=== PATIENT | male | born 1945 | race Caucasian/White ===

== ENCOUNTER 2017-09-16 18:22 | Observation (INO) | payer MEDICARE ==
[2017-09-16] MEDS ORDERED: Nitroglycerin 0.4 MG TAB (25 Tab Bottle) PO PRN (19:32)
[2017-09-16] MEDS ORDERED: Acetaminophen 650 MG Suppository PR PRN (19:32)
[2017-09-16] MEDS ORDERED: Bisacodyl 5 MG TAB PO PRN (19:32)
[2017-09-16] MEDS ORDERED: Acetaminophen 325 MG TAB PO PRN (19:32)
[2017-09-16] MEDS ORDERED: hydrALAZINE 20 MG/ML VIAL SLOW IVP PRN (19:32)
[2017-09-16] MEDS ORDERED: Labetalol HCl 100 MG/20 ML VIAL SLOW IVP PRN (19:32)
[2017-09-16] MEDS ORDERED: Dextrose 50% Abboject 50 ML SYRINGE SLOW IVP PRN (19:41)
[2017-09-16] MEDS ORDERED: Dextrose 5% in Water 1,000 ML IV PRN (19:41)
--- NOTE | 2017-09-16 20:29 | HP ---
PRIMARY CARE PHYSICIAN: Dr. Brock Centeno. CHIEF COMPLAINT: Right-sided numbness. HISTORY OF PRESENT ILLNESS: Mr. Monte is a pleasant 72-year-old gentleman who was seen at [facility] on 09/16/2017. He was transferred here from the emergency room at [facility], where he initially presented. Around 1500 hours today, he was standing by his truck with his son. He felt everything spinning arou nd him, like he was on [id number]. At the same time, he felt right-sided weakness in both upper and lower extremities. He also reports feeling numb in both right upper and lower extremities. He s at down with assistance from his son and another person. He continued to feel right-sided weakness a nd dizziness. Therefore, he was driven to the emergency room at [facility]. He reports that the dizziness has resolved. He also reports that his right-sided weakness has resolv ed, although he continues to have right-sided numbness. He denies any slurring of speech. He denies any facial droop. He denies any nausea or vomiting. Mr. Monte also reports feeling retrosternal chest discomfort around the time he had the above-mentione d symptoms. It was dull, nonradiating, 4 or 5 out of 10, no known aggravating or relieving factors. It lasted a few minutes and resolved on its own. It was accompanied by dizziness. REVIEW OF SYSTEMS: The following complete review of systems was negative, unless otherwise mentioned in the HPI or below: Constitutional: Weight loss or gain, ability to conduct usual activities. Skin: Rash, itching. Eyes: Double vision, pain. ENT/Mouth: Nose bleeding, neck stiffness, pain, tenderness. Cardiovascular: Palpitations, dyspnea on exertion, orthopnea. Respiratory: Shortness of breath, wheezing, cough, hemoptysis, fever or night sweats. Gastrointestinal: Poor appetite, abdominal pain, heartburn, nausea, vomiting, constipation, or diarr hea. Genitourinary: Urgency, frequency, dysuria, nocturia. Musculoskeletal: Pain, swelling. Neurologic/Psychiatric: Anxiety, depression. Allergy/Immunologic: Skin rash, bleeding tendency. PAST MEDICAL HISTORY: Significant for cerebrovascular accident with no residual weakness, TIAs, diab etes mellitus type 2, and hypertension. 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 ALLERGIES: PENICILLIN. MEDICATIONS: These need to be clarified, but he appears to be on metformin and glyburide, metoprolol , lovastatin, and aspirin. SOCIAL HISTORY: Patient denies tobacco use. He reports occasional alcohol use. [facility]. FAMILY HISTORY: Significant for cerebrovascular accident in his mother. CODE STATUS: I discussed his code status. He is FULL CODE. Surrogate decision maker is his son. PHYSICAL EXAMINATION: GENERAL: Mr. Monte is awake and alert, not in acute distress. VITAL SIGNS: Blood pressure is 154/87, pulse is 74, his breathing at rate of 18, and saturating 96% on room air. He is afebrile. EYES: No scleral icterus. No conjunctival pallor. ENT: He is hard of hearing. No oropharyngeal erythema or exudates. NECK: Supple, nontender, normal range of movement. Trachea is midline. RESPIRATORY: Accessory muscles of breathing are not active. Chest wall movements are symmetric bila terally. LUNGS: Clear to auscultation without wheeze, rhonchi, or crepitations. CARDIOVASCULAR: S1 and S2 are heard, regular. LUNGS: Peripheral pulses palpable. No carotid bruit, no pericardial rub. ABDOMEN: Soft, nontender, bowel sounds are heard, no hepatomegaly, no splenomegaly. NEUROLOGIC: Cranial nerves II-XII are intact. He has diminished sensation to the right side of his face, right upper extremity and right lower extremity. There are no focal motor deficits. Deep tend on reflexes are 2+. MUSCULOSKELETAL: Missing toes on his left foot. LYMPHATIC: No cervical lymphadenopathy. SKIN: No rashes or subcutaneous nodules. PSYCHIATRIC: Normal mood, normal affect, patient is oriented to person, place, and time. LABORATORY DATA: Mr. Monte's labs and investigations were reviewed. I reviewed his electrocardiogram , which shows normal sinus rhythm, no ST changes to suggest an acute coronary syndrome. I reviewed noncontrast CT scan of the head, which does not show any pulmonary infiltrates. He has a white count of 10,700, hemoglobin 17, hematocrit 47, platelet count 246, troponin I 0.038, blood urea nitrogen 17.4, and creatinine 1.1. ASSESSMENT AND PLAN: Mr. Monte is a pleasant 72-year-old gentleman who was seen at [facility] on 09/16/2017. His problem list includes: 1. Right-sided weakness and numbness colon, weakness has resolved. He continues to have numbness. He will be admitted to the hospital for further workup, including MRI of the brain, carotid Dopplers, and 2D echocardiogram. He will be continued on aspirin. Neurology service will be consulted. 2. Chest pain. I note that he had a negative stress test in 09/2017. Given his symptoms today as w ell as indeterminate troponin I, we will repeat a troponin I and also request a stress test. 3. Diabetes mellitus. Start insulin sliding scale and Accu-Cheks. 4. Hypertension. Monitor vital signs, titrate antihypertensives as needed. I should note that a CT scan of the brain done at [facility] showed stable remote encephalomalacia of the right posterior parietal lobe. Many thanks for allowing me to participate in your patient's care. Please feel free to contact me wi th any questions or concerns. LEVEL OF RISK: High. LEVEL OF COMPLEXITY: High.
[2017-09-16 20:30] LABS: Troponin I 0.015 ng/mL (< 0.028)
--- NOTE | 2017-09-16 22:04 | ULT ---
BILATERAL CAROTID DUPLEX ULTRASOUND INCLUDING COLOR AND SPECTRAL DOPPLER IMAGIN09/16/17 HISTORY: Doctor's order indicates CVA. There is some visual plaque noted in both right and left CCAs and proximal ICAs. PSV right ICA 45 cm/s. EDV 33 cm/s. ICA/CCA ratio 0.6. PSV left ICA 83 cm/s. EDV 32 cm/s. ICA/CCA ratio 0.6. Vertebral flow is antegrade. IMPRESSION: No hemodynamically significant stenosis. Minimal atherosclerotic arteriovascular disease involving priscilla th right and left distal CCAs and proximal ICAs. Stable appearance when compared to 12/22/16. POS: [facility]
[2017-09-16] MEDS ORDERED: Ondansetron HCl/PF 4 MG/2 ML Vial IVP PRN (22:18)
[2017-09-16] MEDS ORDERED: Sodium Chloride 0.9% 1,000 ML IV SCH (22:18)
[2017-09-16] MEDS ORDERED: Ondansetron ODT 4 MG TAB SL PRN (22:18)
[2017-09-16 23:11] VITALS: BMI 33.7
[2017-09-17 00:10] LABS: CKMB 2.7 ng/mL (0-6.6); Troponin I 0.016 ng/mL (< 0.028)
[2017-09-17 05:38] LABS: #Eosinphils 0.2 thou/uL (0.0-0.7); #Monocytes 0.6 thou/uL (0.11-0.59); #Neutrophils 4.9 thou/uL (1.40-6.50); %Basophils 0.5 % (0.0-1.0); %Eosinophils 2.1 % (0.0-10.0); %Lymphocytes 25.6 % (21.0-51.0); %Monocytes 7.8 % (0.0-10.0); Hemoglobin 15.3 g/dL (14.0-18.0); Mean Corpuscular HGB CONC 34.3 g/dL (32.0-36.0); Mean Corpuscular Hemoglobin 31.7 pg (27.0-31.0); Mean Corpuscular Volume 92.2 fl (80.0-94.0); Mean Platelet Volume 7.5 fL (7.4-10.4); Platelet Count 213 thou/uL (130-400); RBC Distribution Width 12.2 % (11.5-14.5); Red Blood Cell (RBC) Count 4.83 mill/uL (4.70-6.10); White Blood Cell (WBC) Count 7.7 thou/uL (4.8-10.8)
[2017-09-17 05:49] LABS: Anion Gap 9 mmol/L (10-20); BUN (Urea Nitrogen) 13 mg/dL (8.4-25.7); Calc. Creatinine Clearance 111 mL/min (70-130); Calcium 8.6 mg/dL (7.8-10.44); Carbon Dioxide 28 mmol/L (23-31); Cardiac Risk 5.1 (Less than 4.5); Chloride 104 mmol/L (98-107); Cholesterol 157 mg/dl (< 200 Desired); Estimated GFR-MDRD 86; Glucose 252 mg/dL (80-115); HDL Cholesterol 31 mg/dL (>60 Neg Risk); LDL Cholesterol, Calculated 82 mg/dL; Sodium 137 mmol/L (136-145); Triglycerides 220 mg/dL (Less than 150)
[2017-09-17] MEDS: HumaLOG 300 UNITS/3 ML VIAL SC PRN ×3 (06:40→21:14)
[2017-09-17] MEDS ORDERED: Aspirin 325 mg Enteric Coated Tablet PO SCH (09:00)
[2017-09-17] MEDS ORDERED: Lorazepam 2 MG/ML VIAL SLOW IVP SCH ×2 (09:45→15:00)
--- NOTE | 2017-09-17 11:34 | CON ---
DATE OF CONSULTATION: 09/17/2017 NEUROLOGY CONSULTATION CONSULTING PHYSICIAN: Hospitalist. IMPRESSION: 1. Syncopal episode of uncertain etiology. 2. Diabetes. 3. Hypertension. 4. History of questionable stroke. PLAN: 1. MRI of the brain. 2. Echocardiogram. 3. Consider Cardiology evaluation. HISTORY OF PRESENT ILLNESS: Mr. Monte is a 72-year-old man with a past history of diabetes, hypertens ion, and questionable stroke 2 years ago. He was standing by his truck when he started to feel a bit woozy. He collapsed to the ground and was unconscious for around a minute or so. When he awoke, he did not have any chest pain, palpitations, shortness of breath, arm pain, lateralized numbness or ti ngling. He noted some questionable mild weakness in the right upper extremity, was taken into [facility] and had a CT of the brain done, nothing remarkable was found. He was transferred here f or evaluation. His carotid ultrasound was unremarkable. He has been a bit hypertensive and his gluc ose is elevated, but otherwise nothing remarkable has been found. He reports that his symptoms seem to be gone today. PAST MEDICAL HISTORY: As listed above. ALLERGIES: PENICILLIN. SOCIAL HISTORY: No tobacco, rare alcohol use. FAMILY HISTORY: Noncontributory. REVIEW OF SYSTEMS: No nausea, vomiting, vertigo, slurred speech, difficulty swallowing, double visio n, lateralized incoordination or difficulty walking. PHYSICAL EXAMINATION: VITAL SIGNS: Blood pressure 188/93, pulse 65, respirations 16, and temperature 98.1. HEENT: Pupils equal and reactive. Conjunctivae clear. Oropharynx clear. NECK: Supple, no lymphadenopathy noted. EXTREMITIES: No cyanosis, clubbing or edema. NEUROLOGIC: He is alert and appropriate. His speech is fluent and clear. Cranial nerves II-XII are intact. Motor exam showed symmetric strength. There was no fix or drift. Cerebellar testing showe d normal finger to nose and rapid alternating movements. He could stand and walk independently. Sen sation was intact to light touch. LABORATORY STUDIES: Reviewed. SUMMARY: This is a 72-year-old gentleman with hypertension, diabetes, and possible history of a stro ke who presents with a syncopal episode and some subjective mild right upper extremity weakness which has since resolved. Uncertain as to whether this would be consistent with a transient ischemic cleo ck given the loss of consciousness. Given his risk factors, I consider further cardiac workup.
--- NOTE | 2017-09-17 13:44 | NM ---
RADIONUCLIDE STRESS REST MYOCARDIAL PERFUSION SCAN WITH CT ATTENUATION CORRECTION AND SPECT IMAGING LEFT VENTRICULAR WALL MOTION AND EJECTION FRACTION: HISTORY: Chest pain. FINDINGS: Adenosine protocol was used. There is heterogeneous uptake of radiotracer throughout the left ventri cular myocardium with significant diaphragmatic attenuation. No focal perfusion defect or reversibil ity are evident. QGS analysis of gated SPECT images shows no focal wall motion abnormalities. Left ventricular ejection fraction is calculated at 54%. IMPRESSION: Normal myocardial perfusion scan. Normal left ventricular ejection fraction. POS: [facility]
[2017-09-17] MEDS: Enoxaparin Sodium 40 MG/0.4 ML SYRINGE SC SCH (14:01)
[2017-09-17] MEDS ORDERED: Lorazepam 2 MG/ML VIAL ONE (14:56)
--- NOTE | 2017-09-17 15:46 | MRI ---
MRI BRAIN WITHOUT CONTRAST: Date: 09/17/17 HISTORY: Stroke. FINDINGS: Comparison made with exam of 04/24/17. There are changes of cortical atrophy, chronic small vessel ischemic disease, and old infarction in t he right MCA territory. No restricted diffusion is seen. No hemorrhage, midline shift, or abnormal ex tra-axial fluid collections are noted. Ventricular size is stable and the basilar cisterns are patent . Old lacunar infarction in the right basal ganglia is again seen. IMPRESSION: No evidence of acute intracranial process. POS: [facility]
[2017-09-17] MEDS ORDERED: ADENOSINE 60 MG/20 ML VIAL ONE (17:05)
--- NOTE | 2017-09-17 17:44 | PDOC.PN ---
- Subjective Encounter Start Date: 09/17/17 Encounter Start Time: 17:40 Subjective: f/u after suspected TIA with R-sided numbness and vertiginous sx. -: BP labile per nursing. R-sided numbness resolved but still has some -: dizziness. - Objective MAR Reviewed: Yes Vital Signs & Weight: Vital Signs (12 hours) Temp Pulse Resp BP BP Pulse Ox 09/17/17 16:09 84 210/108 H 09/17/17 16:00 97.7 F 83 20 210/108 H 94 L 09/17/17 13:36 97.8 F 75 18 144/84 H 94 L 09/17/17 08:10 97.8 F 66 18 128/86 97 09/17/17 07:38 97.7 F 66 18 128/86 97 Weight Weight 222 lb 3.2 oz I&O: 09/16/17 09/17/17 09/18/17 06:59 06:59 06:59 Intake Total 1279 Balance 1279 Result Diagrams: 09/17/17 05:12 09/17/17 05:12 Additional Labs: Accuchecks 09/17/17 09/17/17 09/17/17 16:51 16:29 06:07 POC Glucose 267 H 290 H 239 H 09/17/17 00:50 POC Glucose 391 H Laboratory Tests 09/17/17 05:12 Triglycerides 220 H Cholesterol 157 LDL Cholesterol, Calc 82 HDL Cholesterol 31 Radiology Reviewed by me: Yes (MRI brain - no acute process) EKG Reviewed by me: Yes (Tele - SR) Phys Exam - Physical Examination Constitutional: NAD HEENT: PERRLA, oral pharynx no lesions Neck: no JVD, supple Respiratory: no wheezing, clear to auscultation bilateral Cardiovascular: RRR Gastrointestinal: soft, non-tender, no distention, positive bowel sounds Musculoskeletal: no edema, pulses present resting tremor in hands Neurological: normal sensation, moves all 4 limbs Psychiatric: A&O x 3 Skin: normal turgor, cap refill <2 seconds Dx/Plan (1) Vertigo Code(s): R42 - DIZZINESS AND GIDDINESS Status: Acute Comment: Likely due to labile BP, improved currently (2) Paresthesia and pain of both upper extremities Code(s): R20.2 - PARESTHESIA OF SKIN; M79.601 - PAIN IN RIGHT ARM; M79.602 - PAIN IN LEFT ARM Status: Acute Comment: Likely due to HTN encephalopathy, no acute CVA per MRI brain (3) Hypertensive encephalopathy Code(s): I67.4 - HYPERTENSIVE ENCEPHALOPATHY Status: Acute Comment: Resolving, monitor BP trend, resume home BP meds (4) Diabetes mellitus Code(s): E11.9 - TYPE 2 DIABETES MELLITUS WITHOUT COMPLICATIONS Status: Chronic Qualifiers: Diabetes mellitus type: type 2 Comment: Labile, resume Diabeta, Metformin and Actos (5) Hyperlipidemia Code(s): E78.5 - HYPERLIPIDEMIA, UNSPECIFIED Status: Chronic Comment: Start Lipitor 20mg HS - Plan PT/OT, bilingual social worker, out of bed/ambulate, DVT proph w/SCDs Stable overall -: Resume home Norvasc, Carvedilol and Lisinopril -: May need additional titration of antihypertensive regimen -: Start Lipitor 20mg HS -: Continue ASA 325mg daily * Likely home 09/18/17 if BP improved
[2017-09-17] MEDS ORDERED: Amlodipine 5 MG TAB PO SCH (18:45)
[2017-09-17] MEDS ORDERED: Carvedilol 6.25 MG TAB PO SCH (18:45)
[2017-09-17] MEDS ORDERED: Lisinopril 20 MG TAB PO SCH (18:45)
[2017-09-17] MEDS ORDERED: Atorvastatin Calcium 20 MG TAB PO SCH (21:00)
[2017-09-17] MEDS ORDERED: Tamsulosin HCl 0.4 MG CAP PO SCH (21:00)
[2017-09-18] MEDS: HumaLOG 300 UNITS/3 ML VIAL SC PRN ×2 (06:00→11:45)
[2017-09-18] MEDS ORDERED: glyBURIDE 5 MG TAB PO SCH (08:00)
[2017-09-18] MEDS ORDERED: metFORMIN 500 MG TAB PO SCH (08:00)
[2017-09-18] MEDS ORDERED: Carvedilol 25 MG TAB PO SCH (08:00)
[2017-09-18] MEDS ORDERED: EMPAGLIFLOZIN PO SCH (09:00)
[2017-09-18] MEDS ORDERED: LINAGLIPTIN PO SCH (09:00)
[2017-09-18] MEDS ORDERED: Aspirin 325 mg Enteric Coated Tablet PO SCH (09:00)
[2017-09-18] MEDS ORDERED: Pioglitazone HCl 15 MG TAB PO SCH (09:00)
[2017-09-18] MEDS ORDERED: Lisinopril 20 MG TAB PO SCH (09:00)
[2017-09-18] MEDS ORDERED: Amlodipine 5 MG TAB PO SCH (09:00)
[2017-09-18] MEDS: Enoxaparin Sodium 40 MG/0.4 ML SYRINGE SC SCH (09:41)
[2017-09-18 09:47] VITALS: BP 162/82; TEMP 98.4
--- NOTE | 2017-09-18 14:52 | DIS ---
DATE OF ADMISSION: 09/16/2017 DATE OF DISCHARGE: 09/18/2017 ADMITTING DIAGNOSIS: Transient ischemic attack. DISCHARGE DIAGNOSIS: Transient ischemic attack. SECONDARY DIAGNOSES: 1. Chest pain. 2. Type 2 diabetes mellitus. 3. Hypertension, uncontrolled. CONSULTANTS: Linen Folder involved in this care is Dr. Ross. INVESTIGATIONS DONE DURING THIS ADMISSION: 1. MRI of the brain showing no evidence of any acute stroke. 2. His nuclear stress test was negative for any evidence of cardiac ischemia. HISTORY OF PRESENT ILLNESS AND HOSPITAL COURSE: In brief, this is a 72-year-old morbidly obese white male with a known history of hypertension, uncontrolled, presented also with right-sided weakness in both upper and lower extremities. He felt dizzy while he was standing by his truck with his son and he felt everything spinning around him and also with right-sided weakness. He sat down with assista nce from his son and another person and continued to feel right-sided weakness and dizziness. So, he was driven to nearby ER at [place] and his right-sided weakness and dizziness have completely res olved. So, the patient was transferred to [facility] for further evaluation. The patient was als o complaining of retrosternal chest pain and discomfort around the time he had the symptoms. The hazel n was 4/5 intensity with no aggravating or relieving factors. So, nuclear stress test was ordered, w hich came out to be unremarkable and he was closely monitored. As he has poorly controlled blood pre ssures, he was started on p.r.n. hydralazine medications, but most of them were related to his anxiet y. His blood pressures calm down on the day of discharge. He had a negative MRI, which did not show any evidence of stroke. His symptoms were back to normal and the patient was able to walk with assi stance, which is baseline according to the son. The patient is discharged home in stable condition a fter Physical Therapy evaluation. PHYSICAL EXAMINATION: VITAL SIGNS: Blood pressures are 162/82, heart rate is 84, respiratory rate 18, saturation 98%. GENERAL: The patient is moderately built, moderately nourished, does not appear in acute distress. CARDIOVASCULAR: S1, S2 normal. No murmurs, rubs or gallops. LUNGS: Bilateral air entry was equal. No wheezing, no crackles. ABDOMEN: Soft, nontender. No guarding, no rebound tenderness. Bowel sounds normal. MACHINE ICER: Cranial nerve examination II through XII intact. No focal deficits were noted. DISCHARGE MEDICATIONS: 1. Amlodipine 5 mg p.o. daily. 2. Carvedilol 12.5 mg p.o. b.i.d. 3. Empagliflozin and linagliptin 1 tablet p.o. daily. 4. Glyburide 5 mg p.o. daily. 5. Lisinopril 20 mg daily. 6. Metformin 500 mg p.o. b.i.d. 7. Pioglitazone 15 mg p.o. daily. 8. Tamsulosin 0.4 mg p.o. daily. NEW MEDICATION: Atorvastatin 20 mg p.o. at bedtime. DISCHARGE INSTRUCTIONS: Continue activity as tolerated. Advised to follow up with primary care phys ician in 1 to 2 weeks. Advised to return to the ER if the patient develops further similar symptoms again and explained about the stroke to return to the ER within 3 hours after symptom onset. Advised to continue on the diabetic diet. I spent 35 minutes with this patient on the day of discharge.
--- NOTE | 2017-09-19 00:27 | EKG ---
Test Reason : Blood Pressure : / mmHG Vent. Rate : 067 BPM Atrial Rate : 067 BPM P-R Int : 144 ms QRS Dur : 094 ms QT Int : 430 ms P-R-T Axes : 000 -37 096 degrees QTc Int : 454 ms Normal sinus rhythm Left axis deviation Nonspecific ST and T wave abnormality Abnormal ECG Confirmed by LAXMI ARAUJO ([id number]), editor book JOE CRANE ([id number]) on 09/19/2017 12:25:36 AM Referred By: Confirmed By:LAXMI ARAUJO
--- NOTE | 2017-09-21 13:35 | STRESS ---
Acquisition Time: 2017-09-17 10:37:09 Total Exercise Time: 00:04:00 Test Indications: CHEST PAIN Medications: Protocol: ADENOSINE Max HR: 090 BPM 60% of Pred: 150 BPM Max BP: 150/070 mmHG Max Work Load: 1.0 METS RESTING ECG: NORMAL SINUS RHYTHM AT 66 BPM WITH NON-SPECIFIC ST SEGMENT AND T-WAVE CHANGES SYMPTOMS: NONE NORMAL BP RESPONSE ECTOPY: NONE ECG STRESS: NO SIGNIFICANT CHANGES INTERPRETATION: INDETERMINATE ECG/AWAIT NUCLEAR IMAGES FOR DEFINITIVE DIAGNOSIS Confirmed by JB SCHWAB ([id number]) on 09/21/2017 1:35:20 PM Referred By: MD Alvino PACHECO Confirmed By:JB SCHWAB
== END 2017-09-18 11:54 | disposition home or self-care (01) ==
LOC: ERS 18:22 → 2SE 21:18
PROVIDERS: ADMIT Internal Medicine; ATTEND Internal Medicine
DX: Z87.891 Personal history of nicotine dependence; R07.2 Precordial pain; Z68.33 Body mass index [BMI] 33.0-33.9, adult; I67.4 Hypertensive encephalopathy; E66.01 Morbid (severe) obesity due to excess calories; I10 Essential (primary) hypertension; Z79.82 Long term (current) use of aspirin; Z79.899 Other long term (current) drug therapy; Z88.0 Allergy status to penicillin; E11.9 Type 2 diabetes mellitus without complications; Z86.73 Personal history of transient ischemic attack (TIA), and cerebral infarction without residual deficits; Z79.84 Long term (current) use of oral hypoglycemic drugs; G45.9 Transient cerebral ischemic attack, unspecified; E78.5 Hyperlipidemia, unspecified
CPT/HCPCS: 70551; 78452; 80048; 80061; 82553 ×2; 82962 ×2; 84484 ×2; 85025; 93005; 93017; 93306; 93880; 94760 ×2; 96361; 96372 ×2; 96374; 96375; 96376; 99285; 99406; A9500; G0378; 36415; 36416; A4216; J0153; J1650; J2060

== ENCOUNTER 2017-11-21 19:07 | Inpatient (IN) | payer MEDICARE ==
[2017-11-21] MEDS ORDERED: Fentanyl 100 MCG/2 ML VIAL ONE (19:19)
[2017-11-21] MEDS ORDERED: Ketorolac Tromethamine 30 MG/ML VIAL ONE (19:43)
[2017-11-21] MEDS ORDERED: Acetaminophen 500 MG TAB ONE (19:48)
[2017-11-21 20:09] LABS: Hemoglobin 14.8 g/dL (14.0-18.0); Mean Corpuscular HGB CONC 34.7 g/dL (32.0-36.0); Mean Corpuscular Hemoglobin 31.7 pg (27.0-31.0); Mean Corpuscular Volume 91.3 fl (80.0-94.0); Mean Platelet Volume 6.8 fL (7.4-10.4); Platelet Count 264 thou/uL (130-400); RBC Distribution Width 11.7 % (11.5-14.5); Red Blood Cell (RBC) Count 4.66 mill/uL (4.70-6.10); White Blood Cell (WBC) Count 25.6 thou/uL (4.8-10.8)
[2017-11-21] MEDS ORDERED: Nicotine 21 MG PATCH TOP SCH (20:15)
[2017-11-21 20:24] LABS: Band 21 % (5-11); Lymphocytes 2 % (21-51); MDiff Complete? YES; Metamyelocyte 1 % (0-0); Monocytes 4 % (0-10); Neutrophil 72 % (42-75); PLT Morphology Comment Appears Adequate; RBC Morphology Normal
[2017-11-21 20:30] LABS: ALT (SGPT) 22 U/L (8-55); AST (SGOT) 19 U/L (5-34); Albumin 3.5 g/dL (3.4-4.8); Alkaline Phosphatase 126 U/L (40-150); Anion Gap 20 mmol/L (10-20); BUN (Urea Nitrogen) 12 mg/dL (8.4-25.7); Bilirubin, Total 0.3 mg/dL (0.2-1.2); CK (CPK) 272 U/L (30-200); Calc. Creatinine Clearance 0 mL/min (70-130); Calcium 8.5 mg/dL (7.8-10.44); Carbon Dioxide 14 mmol/L (23-31); Chloride 94 mmol/L (98-107); Estimated GFR-MDRD 62; Globulin 2.6 g/dL (2.4-3.5); Glucose 131 mg/dL (80-115); Lipase 7 U/L (8-78); Magnesium 1.6 mg/dL (1.6-2.6); Potassium 3.4 mmol/L (3.5-5.1); Protein, Total 6.1 g/dL (5.8-8.1); Sodium 125 mmol/L (136-145)
[2017-11-21] MEDS ORDERED: Piperacillin/Tazobactam 3.375 GM VIAL ONE (22:09)
[2017-11-21] MEDS ORDERED: Vancomycin HCl 1.5 GM in Sodium Chloride 0.9% 250 ML 300 ML IVPB SCH (22:15)
--- NOTE | 2017-11-21 22:18 | RAD ---
CHEST ONE VIEW: History: Fever. Comparison: None. FINDINGS: Heart size upper limits of normal. No focal airspace consolidation or pneumothorax or effusion. Lungs are hypoinflated. No osseous abnormality. IMPRESSION: Lung hypoinflation and vascular crowding. No acute intrathoracic abnormality. POS: [facility]
[2017-11-21 22:27] LABS: Troponin I 0.028 ng/mL (< 0.028)
[2017-11-21 23:19] LABS: Troponin I 0.042 ng/mL (< 0.028)
[2017-11-21 23:39] LABS: Lactic Acid 1.2 mmol/L (0.5-2.2)
[2017-11-22] MEDS ORDERED: Acetaminophen 325 MG TAB PO PRN ×2 (00:08→00:26)
[2017-11-22] MEDS ORDERED: Ondansetron ODT 4 MG TAB SL PRN (00:08)
[2017-11-22] MEDS ORDERED: Ondansetron HCl/PF 4 MG/2 ML Vial IVP PRN ×2 (00:08→00:26)
[2017-11-22] MEDS ORDERED: Dextrose 50% Abboject 50 ML SYRINGE SLOW IVP PRN (00:26)
[2017-11-22] MEDS ORDERED: Ondansetron ODT 4 MG TAB PO PRN (00:26)
[2017-11-22] MEDS ORDERED: Dextrose 5% in Water 1,000 ML IV PRN (00:26)
[2017-11-22 00:28] VITALS: BMI 32.5
[2017-11-22] MEDS ORDERED: Oseltamivir 75 MG CAP PO SCH (00:30)
[2017-11-22] MEDS: Sodium Chloride 0.9% 1,000 ML IV SCH ×3 (00:51→20:44)
[2017-11-22 01:03] LABS: Anion Gap 18 mmol/L (10-20); BUN (Urea Nitrogen) 14 mg/dL (8.4-25.7); Calc. Creatinine Clearance 79 mL/min (70-130); Calcium 7.9 mg/dL (7.8-10.44); Carbon Dioxide 13 mmol/L (23-31); Chloride 96 mmol/L (98-107); Estimated GFR-MDRD 60; Glucose 128 mg/dL (80-115); Potassium 3.2 mmol/L (3.5-5.1); Sodium 124 mmol/L (136-145)
--- NOTE | 2017-11-22 01:45 | HP ---
PRIMARY CARE PHYSICIAN: Dr. Brock Centeno. DATE OF ADMISSION: 11/22/2017 TIME OF SERVICE: 2330. CHIEF COMPLAINT: Weakness. HISTORY OF PRESENT ILLNESS: Mr. Monte is a 72-year-old gentleman initially presented to the [facility] via EMS for back pain and weakness has been increasing for the last 4 days. He describes the back pain as being muscular in nature in the center of his low back. He does not have any radiation or radicular symptoms. He has been just globally weak in terms of just not having any energy. Evaluation in the emergency department with a workup showed metabolic acidosis, increased beta-hydrox ybutyrate, and hyperglycemia. His pH was 7.32. He was diagnosed with DKA and started on 500 mL bolu s, D5 half normal saline, and insulin drip. He was transferred here for further workup and evaluatio n. On arrival, it is felt to be more in sepsis. Workup here showed nasal swab for flu B positive. Ches t x-ray is unremarkable. He was subsequently admitted after white count of 25,000. Patient's other than complaining of back pain and is actually feeling pretty good right now. No naus ea, vomiting, diarrhea, or constipation. No cough or sputum production. PAST MEDICAL HISTORY: 1. Diabetes mellitus, type 2. 2. History of CVA, he was here about 2 months ago. 3. Hypertension, essential. 4. Hyperlipidemia. 5. BPH. PAST SURGICAL HISTORY: Includes left foot toe amputations. HOME MEDICATIONS: 1. Norvasc 5 mg daily. 2. Lipitor 20 mg p.o. at bedtime. 3. Coreg 12.5 mg p.o. b.i.d. 4. Glyburide 5 mg p.o. daily. 5. Empagliflozin and liraglutide 1 tablet p.o. daily. 6. Lisinopril 20 mg daily. 7. Metformin 500 mg p.o. b.i.d. 8. Pioglitazone 50 mg daily. 9. Tamsulosin 0.4 mg p.o. daily. ALLERGIES: PENICILLIN cause a rash. FAMILY HISTORY: Negative for clotting or bleeding disorder, no immune dysfunction. SOCIAL HISTORY: Negative for social alcohol, daily tobacco chewing. No IV drug use. REVIEW OF SYSTEMS: All systems reviewed and negative except stated as per HPI. PHYSICAL EXAMINATION: VITAL SIGNS: Temperature 99.3, pulse 98, blood pressure 124/80, respiratory rate 16, sat 93% on room air. GENERAL: He is awake. He is alert. He is oriented x3, well-developed, well-nourished, obese white male, appears to be in no distress. HEENT: Normocephalic, atraumatic. Pupils are equal, round, react to light bilaterally. Mucosa memb ranes moist. There is no visible lesion, no thrush. He is very hard of hearing. NECK: Supple. He has no lymphadenopathy, JVD, or thyromegaly. He has normal carotid upstroke. I d o not appreciate bruit. CHEST: Lungs are clear. He has coarse breath sounds, but no wheezes, rales, or rhonchi. CARDIOVASCULAR: Normal S1 and S2. He has no S3, S4. He has a faint 2/6 systolic ejection murmur at the right upper sternal border. It does not radiate. ABDOMEN: Soft. He is nontender, nondistended with good bowel sounds in all 4 quadrants. EXTREMITIES: Showed no cyanosis, clubbing, but edema of the bilateral extremities. His feet are theresa y sensitive neuropathically. SKIN: Otherwise warm, moist, and well perfused. He has no other rashes or lesions. MUSCULOSKELETAL: Normal to inspection. Large joints appeared normal. There is no evidence of infla mmation. No palpable effusions. He has normal range of motion. NEUROLOGIC: Cranial nerves II-XII are grossly intact. There are no focal neurologic deficits other than decreased hearing. Normal speech pattern. LABORATORY DATA: Sodium 125, potassium 3.4, chloride 94, bicarb 14, BUN 12, creatinine 1.16, glucose of 131, and calcium 8.5. CBC showed white count of 25.6, hemoglobin 14.8, hematocrit of 42.6, and p latelet count is 264,000. He has a 70% granulocytes with 21% bands. Flu B positive. CK is 272. ASSESSMENT AND PLAN: 1. Influenza B. 2. Systemic inflammatory response syndrome, present on admission. Flu B positive, white count of 25 .6 with left shift, tachycardic, but not febrile here. We will continue oseltamivir. We will watch overnight. We will continue hydration as tolerated and repeat lab work in the morning. 3. Metabolic acidosis: Bicarb 14 on admission. We will see what it looks like after volume expansi on. 4. Hyponatremia. 5. Diabetes mellitus type 2, sliding scale insulin. We will allow him to eat. 6. History of cerebrovascular accident, he was here 2 months ago for the same. 7. Essential hypertension. Continue home medications as needed.
[2017-11-22] MEDS: HYDROcodone/Acetaminophen 5/325 mg Tablet PO PRN ×4 (03:15→20:42)
[2017-11-22 04:00] LABS: Hemoglobin 13.9 g/dL (14.0-18.0); Mean Corpuscular HGB CONC 34.9 g/dL (32.0-36.0); Mean Corpuscular Hemoglobin 32.1 pg (27.0-31.0); Mean Corpuscular Volume 91.8 fl (80.0-94.0); Mean Platelet Volume 6.9 fL (7.4-10.4); Platelet Count 232 thou/uL (130-400); RBC Distribution Width 11.5 % (11.5-14.5); Red Blood Cell (RBC) Count 4.32 mill/uL (4.70-6.10); White Blood Cell (WBC) Count 19.9 thou/uL (4.8-10.8)
[2017-11-22 04:09] LABS: Anion Gap 17 mmol/L (10-20); BUN (Urea Nitrogen) 15 mg/dL (8.4-25.7); Calc. Creatinine Clearance 85 mL/min (70-130); Calcium 7.8 mg/dL (7.8-10.44); Carbon Dioxide 14 mmol/L (23-31); Chloride 98 mmol/L (98-107); Estimated GFR-MDRD 65; Glucose 130 mg/dL (80-115); Magnesium 1.6 mg/dL (1.6-2.6); Potassium 3.1 mmol/L (3.5-5.1); Sodium 126 mmol/L (136-145)
[2017-11-22 04:22] LABS: Band 21 % (5-11); Lymphocytes 3 % (21-51); MDiff Complete? YES; Monocytes 1 % (0-10); Neutrophil 75 % (42-75)
[2017-11-22] MEDS: Famotidine 20 MG TAB PO SCH ×2 (10:29→20:39)
[2017-11-22] MEDS: Oseltamivir 75 MG CAP PO SCH ×2 (10:31→20:39)
--- NOTE | 2017-11-22 12:49 | CON ---
DATE OF CONSULTATION: 11/22/2017 REASON FOR CONSULTATION[place] [facility] [place] HISTORY OF PRESENT ILLNESS: The patient is a 72-year-old male, who was admitted and transfer from [facility] Emergency Room with back pain and weakness that has been occurring 4 days prior to admiss [facility]. He has been diagnosed with influenza B. He was initially felt to be in DKA, but that does not seem to be the case this point. He has substantially elevated white blood cell count. He is very no nspecific as to the back pain. He is very difficult to get any information out of because he is extr danielito hard of hearing. He also seems to have some sort of expressive aphasia from a stroke 2 months ago. PAST MEDICAL HISTORY: 1. Recent stroke. 2. Diabetes mellitus type 2. 3. Hypertension. 4. Prostatic hypertrophy. 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 MEDICATIONS: Prior to admission, Norvasc 5 mg daily, Lipitor 20 mg nightly, Coreg 12.5 mg twice guillermina y, glyburide 5 mg daily, empagliflozin and liraglutide one tablet daily, lisinopril 20 mg daily, metf ormin 500 mg b.i.d., pioglitazone 50 mg daily, and tamsulosin 0.4 mg daily. ALLERGIES: PENICILLIN. FAMILY MEDICAL HISTORY: Unremarkable. SOCIAL HISTORY: Nonsmoker, not consume alcohol or use illicit drugs. REVIEW OF SYSTEMS: Unobtainable secondary to the patient's altered mental status. PHYSICAL EXAMINATION: VITAL SIGNS: Temperature 98.1, pulse 67, respirations 18, O2 sat 97% on room air, and blood pressure 105/51. GENERAL: He is awake, does not appear to be in any distress. HEENT: Pupils react. Sclerae icteric. Oropharynx clear. NECK: No adenopathy or JVD, no bruits. LUNGS: Clear without wheezing or rhonchi. CARDIOVASCULAR: S1 and S2, regular without murmur, rub, or gallop. ABDOMEN: Soft, nontender to palpation. EXTREMITIES: No clubbing, cyanosis, or edema. NEURO: He has a nonfocal neurologic exam. He has no pain to palpation over his spine. LABORATORY AND X-RAY FINDINGS: Beta hydroxybutyrate level was 3.3. White blood cell count 19.9, hem atocrit 39.7, platelet count 232 with 75% neutrophils, 21% bands. Sodium 126, potassium 3.1, chlorid e 98, CO2 of 14, BUN 15, creatinine 1.1, glucose 130. His chest x-ray showed no mass, effusion, or i nfiltrate. ASSESSMENT: 1. Septic shock with improved blood pressure after fluid administration. 2. Influenza type B. 3. Volume depletion. 4. Previous stroke. PLAN: Reviewed orders, agree with the Tamiflu. I do not think the possibility of bacterial infectio n can be completely excluded and I would go ahead and also cover him with typical IV antibiotics sinc e he is allergic to PENICILLIN, LEVAQUIN would seem to be appropriate. Antibiotics can be discontinu ed after 48 hours. Provided cultures are negative. The above encompassed 70 minutes time of it greater than 50% of the time was spent with the patient a nd/or the patient's unit in the hospital.
--- NOTE | 2017-11-22 13:54 | PQF ---
DATE: 11-22-17 ATTN: DR. CHERI SHER Please exercise your independent, professional judgment in responding to the clarification form. Clinical indicators are provided on the bottom of this form for your review Please check appropriate box(s) to clarify if the following diagnosis has been ruled in or ruled out: SEPTIC SHOCK [ ] Ruled in diagnosis [ ] Continue to treat [ ] Resolved [ ] Ruled out diagnosis [ ] Other diagnosis [ x] Unable to determine In addition, please specify: Present on Admission (POA): [ ] Yes [ ] No [ ] Unable to determine For continuity of documentation, please document condition throughout progress notes and discharge summary. Thank You. CLINICAL INDICATORS - SIGNS / SYMPTOMS / LABS ER DX: INFLUENZA, DKA, METABOLIC ACIDOSIS H&P: INFLUENZA B, SIRS, METABOLIC ACIDOSIS, HYPONATREMIA CONSULT DR. GRAY 11-22-17: SEPTIC SHOCK WITH IMPROVED BP AFTER FLUID ADMINISTRATION, INFLUENZA TYPE B WBC: 11-21-17: 25.6 11-22-17: 19.9 BANDS: 11-21-17: 21 11-22-17: 21 RISK FACTORS: H&P: INFLUENZA B, SIRS, METABOLIC ACIDOSIS, HYPONATREMIA TREATMENTS: CONSULT DR. GRAY 11-22-17: SEPTIC SHOCK WITH IMPROVED BP AFTER FLUID ADMINISTRATION, INFLUENZA TYPE B (MAR) IVF, LEVAQUIN, VANCOMYCIN (This form is maintained as a part of the permanent medical record) 2014 [employer] All Rights Reserved TERRIE [email or web address] Office: [phone] [facility]
--- NOTE | 2017-11-22 14:03 | PDOC.PN ---
- Subjective Encounter Start Date: 11/22/17 Encounter Start Time: 14:02 Only complaint is some diffuse abdominal discomfort that has been present for two days. Denies, N/V/D. Has been eating and drinking normally (requests ice cream). Denies cough or SOB. - Objective Resuscitation Status: Resuscitation Status FULL:Full Resuscitation MAR Reviewed: Yes Vital Signs & Weight: Vital Signs (12 hours) Temp Pulse Resp BP Pulse Ox 11/22/17 11:10 98.5 F 90 18 116/68 98 11/22/17 08:19 97 11/22/17 08:00 98.1 F 77 18 11/22/17 07:28 98.1 F 77 18 86/45 L 97 11/22/17 04:00 98.3 F 90 15 96/56 L 100 Weight Weight 214 lb 8 oz I&O: 11/21/17 11/22/17 11/23/17 06:59 06:59 06:59 Intake Total 1000 Balance 1000 Result Diagrams: 11/22/17 03:33 11/22/17 03:33 Additional Labs: Accuchecks 11/22/17 11/22/17 11/22/17 11:01 05:45 00:42 POC Glucose 155 H 139 H 129 H 11/21/17 22:13 POC Glucose 106 Phys Exam - Physical Examination Constitutional: NAD HEENT: PERRLA Neck: no JVD, supple Respiratory: no wheezing, no rales, no rhonchi, clear to auscultation bilateral Cardiovascular: RRR, no significant murmur, no rub Gastrointestinal: soft, no distention, positive bowel sounds Very mildly, diffusely TTP with no guarding or localization. Musculoskeletal: no edema Neurological: non-focal Psychiatric: normal affect Skin: no rash Deviation from normal: Some eythema of the left forearm, but has IV sited there. Dx/Plan (1) Influenza B Code(s): J10.1 - FLU DUE TO OTH IDENT INFLUENZA VIRUS W OTH RESP MANIFEST Status: Acute Plan: Coverage with Tamiflu. Denies cough or SOB. (2) SIRS (systemic inflammatory response syndrome) Code(s): R65.10 - SIRS OF NON-INFECTIOUS ORIGIN W/O ACUTE ORGAN DYSFUNCTION Status: Acute Plan: Has significant leukocytosis and had hypotension. No specific source of bacterial infection found. Coverage with Levaquin has been added. Pulm/CC following. (3) Abdominal pain Code(s): R10.9 - UNSPECIFIED ABDOMINAL PAIN Status: Acute Qualifiers: Abdominal location: generalized Qualified Code(s): R10.84 - Generalized abdominal pain Plan: Exam is generally benign. Patient does not appear toxic. May be related to the acidosis. Initially related it more as back pain. With no alarm symptoms, no advanced imaging now, but low threshold. (4) Diabetes mellitus Code(s): E11.9 - TYPE 2 DIABETES MELLITUS WITHOUT COMPLICATIONS Status: Chronic Qualifiers: Diabetes mellitus type: type 2 Comment: Labile, resume Diabeta, Metformin and Actos (5) Hyponatremia Code(s): E87.1 - HYPO-OSMOLALITY AND HYPONATREMIA Status: Acute Plan: Unclear etiology. Patient reports increased thirst, but currently appears euvolemic. Continue hydration in light of the hypotension. - Plan * Above.
[2017-11-22] MEDS ORDERED: Potassium Chloride 20 MEQ TAB PO SCH (14:30)
[2017-11-22] MEDS: HumaLOG 300 UNITS/3 ML VIAL SC PRN (18:42)
[2017-11-22] MEDS: Tamsulosin HCl 0.4 MG CAP PO SCH (20:39)
[2017-11-23] MEDS ORDERED: VANCOMYCIN IVPB PRN (02:39)
[2017-11-23] MEDS: HYDROcodone/Acetaminophen 5/325 mg Tablet PO PRN ×3 (05:01→21:12)
[2017-11-23 06:14] LABS: Anion Gap 15 mmol/L (10-20); BUN (Urea Nitrogen) 20 mg/dL (8.4-25.7); Calc. Creatinine Clearance 99 mL/min (70-130); Calcium 8.1 mg/dL (7.8-10.44); Carbon Dioxide 17 mmol/L (23-31); Chloride 101 mmol/L (98-107); Estimated GFR-MDRD 77; Glucose 143 mg/dL (80-115); Magnesium 1.6 mg/dL (1.6-2.6); Potassium 3.7 mmol/L (3.5-5.1); Sodium 129 mmol/L (136-145)
[2017-11-23 06:21] LABS: Band 19 % (5-11); Hemoglobin 13.3 g/dL (14.0-18.0); Lymphocytes 6 % (21-51); MDiff Complete? YES; Mean Corpuscular HGB CONC 33.8 g/dL (32.0-36.0); Mean Corpuscular Hemoglobin 31.4 pg (27.0-31.0); Mean Corpuscular Volume 93.1 fl (80.0-94.0); Mean Platelet Volume 7.8 fL (7.4-10.4); Monocytes 9 % (0-10); Neutrophil 66 % (42-75); Platelet Count 237 thou/uL (130-400); RBC Distribution Width 11.7 % (11.5-14.5); Red Blood Cell (RBC) Count 4.23 mill/uL (4.70-6.10); White Blood Cell (WBC) Count 13.9 thou/uL (4.8-10.8)
--- NOTE | 2017-11-23 08:17 | PRG ---
DATE OF SERVICE: 11/23/2017 Mr. Monte appears to be doing better this morning. He is much more responsive and talkative. He said he is having some pain in his lower back on the left side. PHYSICAL EXAMINATION: VITAL SIGNS: Temperature is 98.0, pulse 82, respirations 17, O2 sat 100%, blood pressure 119/67. HEENT: Unremarkable. NECK: No JVD. CHEST: Fairly clear without wheezing. CARDIAC: S1 and S2 regular. ABDOMEN: Soft. EXTREMITIES: No clubbing, cyanosis, or edema. LABORATORY DATA: White blood cell count 13.9, hematocrit 39.3, platelet count 237. Sodium 129, pota ssium 3.7, chloride 101, CO2 17, BUN 20, creatinine 0.9, glucose 143. ASSESSMENT: 1. Volume depletion. 2. Influenza type B. 3. Question of concurrent infection, although cultures are sterile to date. PLAN: 1. He is continuing the Tamiflu and Levaquin. He is also on IV vancomycin. 2. Continue IV hydration. 3. Okay to transfer to medical or telemetry floor from my standpoint.
[2017-11-23] MEDS: Famotidine 20 MG TAB PO SCH ×2 (08:36→21:13)
[2017-11-23] MEDS: Oseltamivir 75 MG CAP PO SCH ×2 (08:36→21:13)
[2017-11-23] MEDS ORDERED: Vancomycin HCl 1 GM in Premix Bag 1 BAG IVPB SCH (09:00)
--- NOTE | 2017-11-23 11:50 | PDOC.PN ---
- Subjective Encounter Start Date: 11/23/17 Encounter Start Time: 11:47 Doing well. No complaints except the low back pain. Has this at home. Uses Aleve. Request therapy. - Objective Resuscitation Status: Resuscitation Status FULL:Full Resuscitation MAR Reviewed: Yes Vital Signs & Weight: Vital Signs (12 hours) Temp Pulse Resp BP BP Pulse Ox 11/23/17 11:23 98.0 F 85 14 118/69 100 11/23/17 07:39 98.0 F 82 17 119/67 100 11/23/17 04:00 98.8 F 85 18 115/68 98 11/23/17 00:00 99.9 F H 83 17 102/74 95 Weight Weight 213 lb 14.4 oz I&O: 11/22/17 11/23/17 11/24/17 06:59 06:59 06:59 Intake Total 1000 3550 Output Total 900 Balance 1000 2650 Result Diagrams: 11/23/17 04:40 11/23/17 04:40 Additional Labs: Accuchecks 11/23/17 11/22/17 11/22/17 10:33 20:33 17:22 POC Glucose 219 H 156 H 185 H Phys Exam - Physical Examination Constitutional: NAD HEENT: PERRLA, oral pharynx no lesions Neck: no nodes, no JVD Some wheezing, but appears more upper airway and positional. Cardiovascular: RRR, no significant murmur Gastrointestinal: soft, non-tender, no distention Musculoskeletal: no edema Psychiatric: normal affect Dx/Plan (1) Influenza B Code(s): J10.1 - FLU DUE TO OTH IDENT INFLUENZA VIRUS W OTH RESP MANIFEST Status: Acute Plan: DOING VERY WELL. AFEBRILE, FEELING WELL, VSS. CONTINUE TAMIFLU. (2) SIRS (systemic inflammatory response syndrome) Code(s): R65.10 - SIRS OF NON-INFECTIOUS ORIGIN W/O ACUTE ORGAN DYSFUNCTION Status: Resolved Plan: RESOLVED (3) Abdominal pain Code(s): R10.9 - UNSPECIFIED ABDOMINAL PAIN Status: Resolved Qualifiers: Abdominal location: generalized Qualified Code(s): R10.84 - Generalized abdominal pain (4) Diabetes mellitus Code(s): E11.9 - TYPE 2 DIABETES MELLITUS WITHOUT COMPLICATIONS Status: Chronic Qualifiers: Diabetes mellitus type: type 2 Plan: STABLE. NO CHANGE. (5) Hyponatremia Code(s): E87.1 - HYPO-OSMOLALITY AND HYPONATREMIA Status: Acute Plan: MILD, PERSISTENT. CONTINUE TO MONITOR WITH FLUIDS. - Plan * TRANSFER TO MEDICAL FLOOR. * CONTINUE WITH VANC, LEVAQUIN, TAMIFLU. * IF CONTINUES TO DO WELL, CAN LIKELY DC IN AM WITH PO ABX.
[2017-11-23] MEDS ORDERED: Enoxaparin Sodium 40 MG/0.4 ML SYRINGE SC SCH (12:15)
[2017-11-23] MEDS: Vancomycin HCl 1.5 GM in Sodium Chloride 0.9% 250 ML 300 ML IVPB SCH ×2 (13:11→21:33)
[2017-11-23] MEDS: Sodium Chloride 0.9% 1,000 ML IV SCH ×3 (13:14→21:21)
[2017-11-23] MEDS: Tamsulosin HCl 0.4 MG CAP PO SCH (21:13)
[2017-11-24] MEDS: HYDROcodone/Acetaminophen 5/325 mg Tablet PO PRN ×4 (02:03→21:33)
[2017-11-24] MEDS: Sodium Chloride 0.9% 1,000 ML IV SCH (02:04)
[2017-11-24] MEDS ORDERED: Nystatin Powder 15 GM BOT TOP PRN (04:09)
[2017-11-24] MEDS: HumaLOG 300 UNITS/3 ML VIAL SC PRN ×3 (07:15→21:35)
--- NOTE | 2017-11-24 08:43 | PRG ---
DATE OF SERVICE: 11/24/2017 The patient is feeling well, had no complaints except for some back pain. PHYSICAL EXAMINATION: VITAL SIGNS: Temperature 98.4, pulse 92, respirations 20, O2 sat 96%, blood pressure ____. HEENT: Unremarkable. NECK: No JVD. CHEST: Clear without wheezing. CARDIAC: S1 and S2 regular. ABDOMEN: Soft. EXTREMITIES: No edema. LABORATORY DATA: No labs were done today. Cultures show no growth to date. ASSESSMENT: 1. Influenza type B. 2. Volume depletion which is corrected. PLAN: Switch over to oral Levaquin. In my opinion, can probably stop the vancomycin. He is continu ing on Tamiflu. I expect he can probably go home by tomorrow.
[2017-11-24] MEDS: Famotidine 20 MG TAB PO SCH ×2 (09:50→21:10)
[2017-11-24] MEDS: Oseltamivir 75 MG CAP PO SCH ×2 (09:50→21:10)
[2017-11-24] MEDS: Enoxaparin Sodium 40 MG/0.4 ML SYRINGE SC SCH (09:51)
[2017-11-24 10:27] LABS: Vancomycin, Trough 15.2 ug/mL
[2017-11-24] MEDS: Vancomycin HCl 1.5 GM in Sodium Chloride 0.9% 250 ML 300 ML IVPB SCH (12:09)
--- NOTE | 2017-11-24 12:50 | PDOC.PN ---
- Subjective Encounter Start Date: 11/24/17 Encounter Start Time: 12:49 DOING VERY WELL. NO COMPLAINTS. BREATHING COMFORTABLY. - Objective Resuscitation Status: Resuscitation Status FULL:Full Resuscitation MAR Reviewed: Yes Vital Signs & Weight: Vital Signs (12 hours) Temp Pulse Resp BP Pulse Ox 11/24/17 11:32 98.8 F 93 22 H 159/102 H 95 11/24/17 08:00 98.4 F 92 22 H 96 11/24/17 07:49 98.4 F 92 22 H 173/104 H 96 11/24/17 07:28 106 H 20 97 11/24/17 04:00 97.8 F 87 20 166/92 H 93 L 11/24/17 01:55 103 H 20 95 Weight Weight 219 lb I&O: 11/23/17 11/24/17 11/25/17 06:59 06:59 06:59 Intake Total 3550 930 Output Total 900 Balance 2650 930 Result Diagrams: 11/23/17 04:40 11/23/17 04:40 Additional Labs: Accuchecks 11/24/17 11/24/17 11/23/17 11:36 05:46 19:45 POC Glucose 185 H 189 H 205 H 11/23/17 11/23/17 16:40 06:09 POC Glucose 156 H 141 H Phys Exam - Physical Examination Constitutional: NAD HEENT: PERRLA, oral pharynx no lesions Neck: no JVD, supple Respiratory: no wheezing, no rales, no rhonchi, clear to auscultation bilateral Cardiovascular: RRR, no significant murmur Gastrointestinal: soft, non-tender, no distention, positive bowel sounds Musculoskeletal: no edema Neurological: non-focal Psychiatric: normal affect Skin: no rash Dx/Plan (1) Influenza B Code(s): J10.1 - FLU DUE TO OTH IDENT INFLUENZA VIRUS W OTH RESP MANIFEST Status: Acute Plan: CONTINUE TAMIFLU. CLINICALLY MUCH IMPROVED. (2) SIRS (systemic inflammatory response syndrome) Code(s): R65.10 - SIRS OF NON-INFECTIOUS ORIGIN W/O ACUTE ORGAN DYSFUNCTION Status: Resolved (3) Abdominal pain Code(s): R10.9 - UNSPECIFIED ABDOMINAL PAIN Status: Resolved Qualifiers: Abdominal location: generalized Qualified Code(s): R10.84 - Generalized abdominal pain (4) Diabetes mellitus Code(s): E11.9 - TYPE 2 DIABETES MELLITUS WITHOUT COMPLICATIONS Status: Chronic Qualifiers: Diabetes mellitus type: type 2 Plan: STABLE. NO CHANGE. (5) Hyponatremia Code(s): E87.1 - HYPO-OSMOLALITY AND HYPONATREMIA Status: Acute Plan: RECHECK IN AM (6) Leukocytosis Code(s): D72.829 - ELEVATED WHITE BLOOD CELL COUNT, UNSPECIFIED Status: Acute Plan: INITIALLY CONCERNING FOR POSSIBLE BACTERIAL INFECTION V. VIRAL ILLNESS. LEVAQUIN CHANGED TO PO AND VANCOMYCIN WILL BE STOPPED. CULTURES NEGATIVE. - Plan * ANTICIPATE DISCHARGE TOMORROW IF HE CONTINUES TO DO WELL.
[2017-11-24] MEDS: Tamsulosin HCl 0.4 MG CAP PO SCH (21:10)
[2017-11-25 05:12] LABS: #Eosinphils 0.1 thou/uL (0.0-0.7); #Lymphocytes 1.1 thou/uL (1.20-3.40); #Monocytes 0.9 thou/uL (0.11-0.59); #Neutrophils 10.2 thou/uL (1.40-6.50); %Eosinophils 0.9 % (0.0-10.0); %Lymphocytes 8.6 % (21.0-51.0); %Monocytes 7.1 % (0.0-10.0); %Neutrophils 83.4 % (42.0-75.0); Hemoglobin 14.1 g/dL (14.0-18.0); Mean Corpuscular HGB CONC 32.4 g/dL (32.0-36.0); Mean Corpuscular Volume 92.9 fl (80.0-94.0); Mean Platelet Volume 7.3 fL (7.4-10.4); Platelet Count 280 thou/uL (130-400); RBC Distribution Width 11.9 % (11.5-14.5); Red Blood Cell (RBC) Count 4.69 mill/uL (4.70-6.10); White Blood Cell (WBC) Count 12.2 thou/uL (4.8-10.8)
[2017-11-25 05:30] LABS: Anion Gap 18 mmol/L (10-20); BUN (Urea Nitrogen) 11 mg/dL (8.4-25.7); Calc. Creatinine Clearance 131 mL/min (70-130); Calcium 8.5 mg/dL (7.8-10.44); Carbon Dioxide 20 mmol/L (23-31); Chloride 97 mmol/L (98-107); Estimated GFR-MDRD Greater than 90; Glucose 147 mg/dL (80-115); Potassium 3.5 mmol/L (3.5-5.1); Sodium 131 mmol/L (136-145)
[2017-11-25 05:32] LABS: Troponin I 0.021 ng/mL (< 0.028)
[2017-11-25 08:31] LABS: Troponin I 0.016 ng/mL (< 0.028)
[2017-11-25] MEDS: Enoxaparin Sodium 40 MG/0.4 ML SYRINGE SC SCH (10:08)
[2017-11-25] MEDS: Famotidine 20 MG TAB PO SCH ×2 (10:09→20:56)
[2017-11-25] MEDS: Oseltamivir 75 MG CAP PO SCH ×2 (10:10→20:56)
[2017-11-25 10:21] LABS: Vancomycin, Trough 8.4 ug/mL
[2017-11-25] MEDS ORDERED: Fentanyl 100 MCG/2 ML VIAL ONE (11:36)
--- NOTE | 2017-11-25 14:34 | EKG ---
Test Reason : STAT Blood Pressure : / mmHG Vent. Rate : 097 BPM Atrial Rate : 097 BPM P-R Int : 142 ms QRS Dur : 098 ms QT Int : 360 ms P-R-T Axes : 097 -24 040 degrees QTc Int : 457 ms Normal sinus rhythm Normal ECG When compared with ECG of 21-NOV-2017 19:25, (Unconfirmed) Premature atrial complexes are no longer Present Nonspecific T wave abnormality no longer evident in Inferior leads Confirmed by DOV ZIEGLER ([id number]) on 11/25/2017 2:33:36 PM Referred By: Confirmed By:DOV ZIEGLER
--- NOTE | 2017-11-25 15:29 | PDOC.PN ---
- Subjective Encounter Start Date: 11/25/17 Encounter Start Time: 11:00 Feels well in general. Does not feel SOB. He has not been getting up much and says he feels generally weak. - Objective Resuscitation Status: Resuscitation Status FULL:Full Resuscitation Vital Signs & Weight: Vital Signs (12 hours) Temp Pulse Resp BP Pulse Ox 11/25/17 08:00 98.4 F 96 16 95 11/25/17 07:51 98.4 F 96 16 140/88 95 Weight Weight 220 lb 2 oz I&O: 11/24/17 11/25/17 11/26/17 06:59 06:59 06:59 Intake Total 930 720 Balance 930 720 Result Diagrams: 11/25/17 04:12 11/25/17 04:12 Additional Labs: Accuchecks 11/25/17 11/25/17 11/24/17 11:28 05:40 21:06 POC Glucose 153 H 138 H 253 H 11/24/17 16:50 POC Glucose 128 H Phys Exam - Physical Examination Constitutional: NAD HEENT: PERRLA, oral pharynx no lesions Neck: no JVD, supple Respiratory: no wheezing, no rales, no rhonchi, clear to auscultation bilateral Cardiovascular: RRR, no significant murmur Gastrointestinal: soft, non-tender, no distention Musculoskeletal: no edema Neurological: non-focal Psychiatric: normal affect Skin: no rash Dx/Plan (1) Influenza B Code(s): J10.1 - FLU DUE TO OTH IDENT INFLUENZA VIRUS W OTH RESP MANIFEST Status: Acute Plan: Tested positive for Flu B. Has been afebrile and essentially asymptomatic for a couple of days now. Will complete the course of Tamiflu (five days). (2) SIRS (systemic inflammatory response syndrome) Code(s): R65.10 - SIRS OF NON-INFECTIOUS ORIGIN W/O ACUTE ORGAN DYSFUNCTION Status: Resolved Plan: Viral sepsis v. bacterial infection. Elevated wbc's. Continuing with antibiotic coverage. Afebrile and clinically improved. (3) Abdominal pain Code(s): R10.9 - UNSPECIFIED ABDOMINAL PAIN Status: Resolved Qualifiers: Abdominal location: generalized Qualified Code(s): R10.84 - Generalized abdominal pain (4) Diabetes mellitus Code(s): E11.9 - TYPE 2 DIABETES MELLITUS WITHOUT COMPLICATIONS Status: Chronic Qualifiers: Diabetes mellitus type: type 2 Plan: Adequately controlled. No change. (5) Hyponatremia Code(s): E87.1 - HYPO-OSMOLALITY AND HYPONATREMIA Status: Acute Plan: Improving daily. (6) Leukocytosis Code(s): D72.829 - ELEVATED WHITE BLOOD CELL COUNT, UNSPECIFIED Status: Acute (7) Physical deconditioning Code(s): R53.81 - OTHER MALAISE Status: Acute Plan: D/W CM. She talked with the patient's son. He indicated the patient was more functional prior to becoming ill. He is not at baseline. He and the patient are amenable to some rehab. - Plan * Referring to swing bed. Will need insurance authorization. Medically ready for discharge.
[2017-11-25] MEDS: HYDROcodone/Acetaminophen 5/325 mg Tablet PO PRN (15:44)
[2017-11-25] MEDS: Tamsulosin HCl 0.4 MG CAP PO SCH (20:56)
[2017-11-25] MEDS: HumaLOG 300 UNITS/3 ML VIAL SC PRN (21:41)
[2017-11-26] MEDS: HYDROcodone/Acetaminophen 5/325 mg Tablet PO PRN ×3 (00:49→21:04)
[2017-11-26] MEDS: HumaLOG 300 UNITS/3 ML VIAL SC PRN ×3 (06:00→17:24)
[2017-11-26] MEDS: Famotidine 20 MG TAB PO SCH ×2 (08:15→21:01)
[2017-11-26] MEDS: Enoxaparin Sodium 40 MG/0.4 ML SYRINGE SC SCH (08:16)
[2017-11-26] MEDS: Oseltamivir 75 MG CAP PO SCH (08:16)
[2017-11-26] MEDS ORDERED: Lisinopril 20 MG TAB PO SCH (13:45)
--- NOTE | 2017-11-26 13:46 | PDOC.PN ---
- Subjective Encounter Start Date: 11/26/17 Encounter Start Time: 13:44 COMPLAINS OF CHRONIC BACK PAIN. NO OTHER COMPLAINTS. - Objective Resuscitation Status: Resuscitation Status FULL:Full Resuscitation MAR Reviewed: Yes Vital Signs & Weight: Vital Signs (12 hours) Temp Pulse Resp BP Pulse Ox 11/26/17 11:14 87 20 98 11/26/17 08:00 97.8 F 95 14 96 11/26/17 07:23 97.8 F 95 14 167/94 H 96 11/26/17 06:02 98.5 F 83 18 197/87 H 97 Weight Weight 217 lb 1 oz I&O: 11/25/17 11/26/17 11/27/17 06:59 06:59 06:59 Intake Total 720 520 Balance 720 520 Result Diagrams: 11/25/17 04:12 11/25/17 04:12 Additional Labs: Accuchecks 11/26/17 11/26/17 11/25/17 11:28 05:55 21:37 POC Glucose 211 H 229 H 242 H 11/25/17 16:16 POC Glucose 145 H Phys Exam - Physical Examination Constitutional: NAD HEENT: PERRLA, oral pharynx no lesions Neck: no JVD, supple Respiratory: no wheezing, no rales, no rhonchi, clear to auscultation bilateral Cardiovascular: RRR, no significant murmur, no rub Gastrointestinal: soft, non-tender, no distention Musculoskeletal: no edema Neurological: non-focal Psychiatric: normal affect Skin: no rash, normal turgor Dx/Plan (1) Influenza B Code(s): J10.1 - FLU DUE TO OTH IDENT INFLUENZA VIRUS W OTH RESP MANIFEST Status: Acute Plan: HAS COMPLETED A COURSE OF TAMIFLU. SYMPTOMS RESOLVED. CAN D/C ISOLATION TOMORROW. (2) SIRS (systemic inflammatory response syndrome) Code(s): R65.10 - SIRS OF NON-INFECTIOUS ORIGIN W/O ACUTE ORGAN DYSFUNCTION Status: Resolved (3) Abdominal pain Code(s): R10.9 - UNSPECIFIED ABDOMINAL PAIN Status: Resolved Qualifiers: Abdominal location: generalized Qualified Code(s): R10.84 - Generalized abdominal pain (4) Diabetes mellitus Code(s): E11.9 - TYPE 2 DIABETES MELLITUS WITHOUT COMPLICATIONS Status: Chronic Qualifiers: Diabetes mellitus type: type 2 Plan: RESUMING HIS HOME MEDICATION REGIMEN. (5) Hyponatremia Code(s): E87.1 - HYPO-OSMOLALITY AND HYPONATREMIA Status: Resolved (6) Leukocytosis Code(s): D72.829 - ELEVATED WHITE BLOOD CELL COUNT, UNSPECIFIED Status: Resolved (7) Physical deconditioning Code(s): R53.81 - OTHER MALAISE Status: Acute Plan: ATTEMPTING TO GET PATIENT TRANSFERRED TO REHAB. MUCH WEAKER THAN HIS BASELINE. (8) Essential hypertension Code(s): I10 - ESSENTIAL (PRIMARY) HYPERTENSION Status: Acute Plan: HOME MEDS WERE INITIALLY HELD DUE TO SEPSIS CONCERNS. WILL RESUME THEM HIS BP IS HIGH. - Plan * ABOVE.
[2017-11-26] MEDS ORDERED: Ibuprofen 200 MG TAB PO PRN (13:52)
[2017-11-26] MEDS: Carvedilol 6.25 MG TAB PO SCH (15:20)
[2017-11-26] MEDS: Tamsulosin HCl 0.4 MG CAP PO SCH (21:01)
[2017-11-26] MEDS: Atorvastatin Calcium 40 MG TAB PO SCH (21:01)
[2017-11-27] MEDS: hydrALAZINE 20 MG/ML VIAL SLOW IVP PRN (02:05)
[2017-11-27] MEDS: HYDROcodone/Acetaminophen 5/325 mg Tablet PO PRN ×3 (05:24→21:42)
[2017-11-27] MEDS ORDERED: Bisacodyl 5 MG TAB PO PRN (07:55)
[2017-11-27] MEDS: metFORMIN 500 MG TAB PO SCH ×2 (08:50→16:49)
[2017-11-27] MEDS: Famotidine 20 MG TAB PO SCH ×2 (08:51→21:41)
[2017-11-27] MEDS: Carvedilol 6.25 MG TAB PO SCH ×2 (08:51→16:49)
[2017-11-27] MEDS: Pioglitazone HCl 15 MG TAB PO SCH (08:51)
[2017-11-27] MEDS: Enoxaparin Sodium 40 MG/0.4 ML SYRINGE SC SCH (08:55)
[2017-11-27] MEDS ORDERED: Atorvastatin Calcium 40 MG TAB PO SCH (09:00)
[2017-11-27] MEDS ORDERED: Lisinopril 20 MG TAB PO SCH (09:00)
--- NOTE | 2017-11-27 13:16 | PDOC.PN ---
- Subjective Encounter Start Date: 11/27/17 Encounter Start Time: 13:14 Feels fine. Modest back discomfort (chronic). - Objective Resuscitation Status: Resuscitation Status FULL:Full Resuscitation MAR Reviewed: Yes Vital Signs & Weight: Vital Signs (12 hours) Temp Pulse Resp BP BP BP Pulse Ox 11/27/17 11:44 97.9 F 73 14 138/78 97 11/27/17 09:43 77 24 H 98 11/27/17 08:51 168/81 H 11/27/17 08:00 97.7 F 88 16 168/81 H 95 11/27/17 04:00 98.0 F 89 18 163/82 H 92 L 11/27/17 03:00 165/60 H 11/27/17 02:05 94 11/27/17 01:49 97 11/27/17 01:20 195/100 H Weight Weight 218 lb I&O: 11/26/17 11/27/17 11/28/17 06:59 06:59 06:59 Intake Total 520 1560 Balance 520 1560 Result Diagrams: 11/25/17 04:12 11/25/17 04:12 Additional Labs: Accuchecks 11/27/17 11/27/17 11/26/17 11:37 05:28 21:02 POC Glucose 178 H 137 H 171 H 11/26/17 16:39 POC Glucose 170 H Phys Exam - Physical Examination Constitutional: NAD HEENT: PERRLA Neck: no JVD, supple Respiratory: no wheezing, no rales, no rhonchi, clear to auscultation bilateral Cardiovascular: RRR, no significant murmur Gastrointestinal: soft, non-tender, no distention, positive bowel sounds Musculoskeletal: no edema Psychiatric: normal affect Skin: no rash, normal turgor Dx/Plan (1) Influenza B Code(s): J10.1 - FLU DUE TO OTH IDENT INFLUENZA VIRUS W OTH RESP MANIFEST Status: Resolved Plan: HAD FULL COURSE OF TAMIFLU. ASYMPTOMATIC. D/C ISOLATION. (2) SIRS (systemic inflammatory response syndrome) Code(s): R65.10 - SIRS OF NON-INFECTIOUS ORIGIN W/O ACUTE ORGAN DYSFUNCTION Status: Resolved (3) Diabetes mellitus Code(s): E11.9 - TYPE 2 DIABETES MELLITUS WITHOUT COMPLICATIONS Status: Chronic Qualifiers: Diabetes mellitus type: type 2 Plan: WELL CONTROLLED ON ACTOS AND METFORMIN. (4) Hyponatremia Code(s): E87.1 - HYPO-OSMOLALITY AND HYPONATREMIA Status: Resolved Plan: BETTER. RECHECK IN AM. (5) Leukocytosis Code(s): D72.829 - ELEVATED WHITE BLOOD CELL COUNT, UNSPECIFIED Status: Resolved Plan: NEEDS TWO MORE DAYS OF LEVAQUIN. CAN DC ON WEDNESDAY. (6) Physical deconditioning Code(s): R53.81 - OTHER MALAISE Status: Acute Plan: AWAITING INSURANCE APPROVAL FOR REHAB FOR DECONDITIONING. PATIENT'S SON SAYS HE WAS MORE FUNCTIONAL PRIOR AND WOULD HAVE DIFFICULTY CARING FOR HIM AT HOME. (7) Essential hypertension Code(s): I10 - ESSENTIAL (PRIMARY) HYPERTENSION Status: Chronic Plan: COREG AND LISINOPRIL - Plan * PATIENT PRESENTED WITH SIRS. APPEARED TO HAVE FLU B, BUT SIGNIFICANT LEUKOCYTOSIS, SO COVERED FOR BACTERIAL SOURCE WELL. RESPONDED QUICKLY AND HAS BEEN ASYMPTOMATIC FOR DAYS. HAS BEEN DECONDITIONED BY THE EXPERIENCE AND NEEDS REHAB. * MEDICALLY STABLE FOR DISCHARGE. AWAITING INSURANCE APPROVAL FOR REHAB.
[2017-11-27] MEDS: Atorvastatin Calcium 40 MG TAB PO SCH (21:41)
[2017-11-27] MEDS: Tamsulosin HCl 0.4 MG CAP PO SCH (21:42)
[2017-11-27] MEDS: HumaLOG 300 UNITS/3 ML VIAL SC PRN (21:43)
[2017-11-28] MEDS: HYDROcodone/Acetaminophen 5/325 mg Tablet PO PRN ×3 (02:20→22:43)
[2017-11-28] MEDS: hydrALAZINE 20 MG/ML VIAL SLOW IVP PRN ×2 (02:31→22:59)
[2017-11-28] MEDS: HumaLOG 300 UNITS/3 ML VIAL SC PRN (06:26)
[2017-11-28] MEDS: Carvedilol 6.25 MG TAB PO SCH (08:40)
[2017-11-28] MEDS: metFORMIN 500 MG TAB PO SCH ×2 (08:40→16:36)
[2017-11-28] MEDS: Pioglitazone HCl 15 MG TAB PO SCH (08:40)
[2017-11-28] MEDS: Enoxaparin Sodium 40 MG/0.4 ML SYRINGE SC SCH (08:40)
[2017-11-28] MEDS: Famotidine 20 MG TAB PO SCH ×2 (08:40→20:08)
[2017-11-28] MEDS ORDERED: Lisinopril 20 MG TAB PO SCH (09:00)
--- NOTE | 2017-11-28 14:43 | PDOC.PN ---
- Subjective Encounter Start Date: 11/28/17 Encounter Start Time: 12:00 Patient c/o back pain, Alert and oriented. Explaiend to him he nwould need Rehab. - Objective Resuscitation Status: Resuscitation Status FULL:Full Resuscitation MAR Reviewed: Yes Vital Signs & Weight: Vital Signs (12 hours) Temp Pulse Resp BP BP Pulse Ox 11/28/17 11:00 98.3 F 78 16 119/79 94 L 11/28/17 08:40 143/86 H 11/28/17 08:00 98.4 F 85 18 93 L 11/28/17 07:44 98.4 F 85 18 143/86 H 93 L 11/28/17 03:05 80 18 123/72 96 Weight Weight 215 lb 11.2 oz I&O: 11/27/17 11/28/17 11/29/17 06:59 06:59 06:59 Intake Total 1560 1370 Balance 1560 1370 Result Diagrams: 11/25/17 04:12 11/25/17 04:12 Additional Labs: Accuchecks 11/28/17 11/28/17 11/27/17 11:19 06:27 21:35 POC Glucose 140 H 126 H 202 H 11/27/17 16:48 POC Glucose 187 H Radiology Reviewed by me: Yes Phys Exam - Physical Examination HEENT: PERRLA, moist MMs Neck: no nodes, no JVD Respiratory: no wheezing, no rales Cardiovascular: RRR, no significant murmur Gastrointestinal: soft, non-tender Musculoskeletal: no edema Neurological: non-focal, normal sensation Lymphatic: no nodes Psychiatric: normal affect Dx/Plan (1) Physical deconditioning Code(s): R53.81 - OTHER MALAISE Status: Acute Comment: Will need Rehab placmeent. (2) Influenza B Code(s): J10.1 - FLU DUE TO OTH IDENT INFLUENZA VIRUS W OTH RESP MANIFEST Status: Resolved Comment: COmpleted Tamiflu course. (3) SIRS (systemic inflammatory response syndrome) Code(s): R65.10 - SIRS OF NON-INFECTIOUS ORIGIN W/O ACUTE ORGAN DYSFUNCTION Status: Resolved Comment: Cotninue with levofloxxcin for 2 more days. (4) Acute CVA (cerebrovascular accident) Code(s): I63.9 - CEREBRAL INFARCTION, UNSPECIFIED Status: Acute Comment: Contiue Aspirin/ Statin. (5) Diabetes mellitus Code(s): E11.9 - TYPE 2 DIABETES MELLITUS WITHOUT COMPLICATIONS Status: Chronic Qualifiers: Diabetes mellitus type: type 2 Comment: Labile, resume Diabeta, Metformin and Actos (6) Hyperlipidemia Code(s): E78.5 - HYPERLIPIDEMIA, UNSPECIFIED Status: Chronic Comment: Start Lipitor 20mg HS (7) Hypertension Code(s): I10 - ESSENTIAL (PRIMARY) HYPERTENSION Status: Chronic (8) Chest pain Code(s): R07.9 - CHEST PAIN, UNSPECIFIED Status: Acute Comment: WIll move him to Tele floor, EKG showed non specfic changes with posisble inferior wall, will do Asprin, BB, Statin, Do Echo, Will consult Cardiology. Control His BP, with labetelol 20mg IV now. - Plan cont current plan of care, continue antibiotics, PT/OT, pediatric social worker, respiratory therapy, incentive spirometry, DVT proph w/lovenox * . Review of Systems - Review of Systems Constitutional: negative: fever, chills, sweats, weakness, malaise, other Eyes: negative: Pain, Vision Change, Conjunctivae Inflammation, Eyelid Inflammation, Redness, Other ENT: negative: Ear Pain, Ear Discharge, Nose Pain, Nose Discharge, Nose Congestion, Mouth Pain, Mouth Swelling, Throat Pain, Throat Swelling, Other Respiratory: negative: Cough, Dry, Shortness of Breath, Hemoptysis, SOB with Excertion, Pleuritic Pain, Sputum, Wheezing Cardiovascular: negative: chest pain, palpitations, orthopnea, paroxysmal nocturnal dyspnea, edema, light headedness, other Gastrointestinal: negative: Nausea, Vomiting, Abdominal Pain, Diarrhea, Constipation, Melena, Hematochezia, Other Skin: negative: Rash, Lesions, Kvng, Bruising, Other - Medications/Allergies Allergies/Adverse Reactions: Allergies Allergy/AdvReac Type Severity Reaction Status Date / Time Penicillins Allergy Verified 12/22/16 00:11 Medications: Current Medications Acetaminophen (Tylenol) 650 mg PO Q4H PRN PRN Reason: Headache/Fever or Pain Hydrocodone Bitart/Acetaminophen ([place] 5/325) 1 tab PO Q4H PRN PRN Reason: Moderate Pain (4-6) Last Admin: 11/28/17 08:41 Dose: 1 tab Albuterol/Ipratropium (Duoneb) 3 ml NEB Q4H PRN PRN Reason: SOB/ WHEEZING Last Admin: 11/27/17 09:43 Dose: 3 ml Atorvastatin Calcium (Lipitor) 40 mg PO HS [facility] Last Admin: 11/27/17 21:41 Dose: 40 mg Bisacodyl (Dulcolax) 10 mg PO DAILYPRN PRN PRN Reason: Constipation Last Admin: 11/27/17 08:51 Dose: 10 mg [facility] Last Admin: 11/28/17 08:40 Dose: 12.5 mg Dextrose/Water (Dextrose 50%) 25 gm SLOW IVP PRN PRN PRN Reason: Hypoglycemia Enoxaparin Sodium (Lovenox) 40 mg SC 0900 [facility] Last Admin: 11/28/17 08:40 Dose: 40 mg Famotidine (Pepcid) 20 mg PO BID [facility] Last Admin: 11/28/17 08:40 Dose: 20 mg Glucagon (Glucagon) 1 mg IM PRN PRN PRN Reason: Hypoglycemia Hydralazine HCl (Apresoline) 10 mg SLOW IVP Q3H PRN PRN Reason: SBP Greater Than 170 Last Admin: 11/28/17 02:31 Dose: 10 mg Dextrose/Water (D5w) 1,000 mls @ 0 mls/hr IV .Q0M PRN; As Directed PRN Reason: Hypoglycemia Ibuprofen (Motrin) 400 mg PO Q6H PRN PRN Reason: Mild-Moderate Pain (1-5) Insulin Human Lispro (Humalog) 0 units SC .MILD SLIDING SCALE PRN PRN Reason: Mild Correctional Scale Last Admin: 11/28/17 06:26 Dose: 2 unit Levofloxacin (Levaquin) 750 mg PO 0900 [facility] Last Admin: 11/28/17 08:40 Dose: 750 mg Lisinopril (Zestril) 20 mg PO DAILY [facility] Last Admin: 11/28/17 08:40 Dose: 20 mg Metformin HCl (Glucophage) [facility] Last Admin: 11/28/17 08:40 Dose: 1,000 mg Miscellaneous Medication (Pharmacy To Dose) 1 each IVPB PRN PRN PRN Reason: SEPSIS/BACTEREMIA Nystatin (Mycostatin Powder) 0 gm TOP PRN PRN PRN Reason: TOPICAL IRRITATION/RASH Last Admin: 11/26/17 21:32 Dose: 1 applic Ondansetron HCl (Zofran Odt) 4 mg PO Q6H PRN PRN Reason: Nausea/Vomiting Last Admin: 11/22/17 16:28 Dose: 4 mg Ondansetron HCl (Zofran) 4 mg IVP Q6H PRN PRN Reason: Nausea/Vomiting Pioglitazone HCl (Actos) 15 mg PO DAILY [facility] Last Admin: 11/28/17 08:40 Dose: 15 mg Sodium Chloride (Flush - Normal Saline) 10 ml IVF Q12HR [facility] Last Admin: 11/28/17 08:50 Dose: 10 ml Sodium Chloride (Flush - Normal Saline) 10 ml IVF PRN PRN PRN Reason: Saline Flush Tamsulosin HCl (Flomax) 0.4 mg PO QPM [facility] Last Admin: 11/27/17 21:42 Dose: 0.4 mg
[2017-11-28] MEDS ORDERED: Aspirin 325 MG TAB PO SCH (16:30)
[2017-11-28] MEDS ORDERED: Nitroglycerin 0.4 MG TAB (25 Tab Bottle) SL SCH (16:30)
[2017-11-28] MEDS ORDERED: Labetalol HCl 100 MG/20 ML VIAL SLOW IVP SCH ×2 (16:30→18:45)
[2017-11-28 16:57] LABS: Troponin I 0.016 ng/mL (< 0.028)
[2017-11-28] MEDS: Carvedilol 25 MG TAB PO SCH (17:08)
[2017-11-28] MEDS ORDERED: Nitroglycerin 0.4 MG TAB (25 Tab Bottle) SL PRN (18:30)
[2017-11-28] MEDS ORDERED: Aspirin 325 mg Enteric Coated Tablet PO SCH (18:30)
[2017-11-28 19:14] LABS: Troponin I 0.012 ng/mL (< 0.028)
[2017-11-28] MEDS: Nitroglycerin 2% Ointment 1 INCH/1 GM Packet TOP SCH (20:06)
[2017-11-28] MEDS: Lisinopril 20 MG TAB PO SCH (20:08)
[2017-11-28] MEDS: Tamsulosin HCl 0.4 MG CAP PO SCH (20:08)
[2017-11-28] MEDS: Atorvastatin Calcium 40 MG TAB PO SCH (20:09)
[2017-11-28 21:17] LABS: Troponin I Less than 0.010 ng/mL (< 0.028)
--- NOTE | 2017-11-28 22:02 | ULT ---
BILATERAL LOWER EXTREMITY VENOUS DOPPLER ULTRASOUND: 11/28/2017 HISTORY: Edema. Swelling. Pain. Assess for DVT. COMPARISON: None. TECHNIQUE: Multiplanar parson-scale sonographic imaging of the venous structures of the bilateral lower extremitie s obtained with color-flow and spectral analysis. FINDINGS: Bilateral common femoral veins, femoral veins, popliteal veins, greater saphenous veins, profunda fem oral veins, posterior tibial veins, and anterior tibial veins are patent. There is normal blood flow , augmentation, and compression within the deep venous system bilaterally, with no evidence for DVT. IMPRESSION: No evidence for deep venous thrombosis of either lower extremity. POS: [facility]
[2017-11-29] MEDS: Nitroglycerin 2% Ointment 1 INCH/1 GM Packet TOP SCH (05:40)
[2017-11-29 05:49] LABS: Cardiac Risk 2.8 (Less than 4.5)
[2017-11-29] MEDS: HYDROcodone/Acetaminophen 5/325 mg Tablet PO PRN ×2 (06:18→21:26)
[2017-11-29] MEDS ORDERED: Aspirin 325 mg Enteric Coated Tablet PO SCH (09:00)
[2017-11-29] MEDS ORDERED: Aspirin 325 MG TAB PO SCH ×2 (09:00)
[2017-11-29] MEDS: metFORMIN 500 MG TAB PO SCH (09:08)
[2017-11-29] MEDS: Carvedilol 25 MG TAB PO SCH ×2 (09:12→16:32)
[2017-11-29] MEDS: Pioglitazone HCl 15 MG TAB PO SCH (09:12)
[2017-11-29] MEDS: Famotidine 20 MG TAB PO SCH ×2 (09:12→21:26)
[2017-11-29] MEDS: Enoxaparin Sodium 40 MG/0.4 ML SYRINGE SC SCH (09:18)
[2017-11-29] MEDS: Glimepiride 2 MG TAB PO SCH (09:23)
[2017-11-29] MEDS: Lisinopril 20 MG TAB PO SCH ×2 (09:24→21:26)
[2017-11-29] MEDS ORDERED: Iopamidol 370 76% 100 ML VIAL ONE (09:38)
--- NOTE | 2017-11-29 10:06 | CT ---
CTA OF THE THORAX UTILIZING IV CONTRAST AND 3D REFORMATTED IMAGING: INDICATION: Elevated D-dimer with chest pain. COMPARISON: No CT comparisons are available. Comparisons are made with a chest radiograph dated 11/21/17. FINDINGS: There is a simple-appearing left and a loculated-appearing right-sided pleural effusion with fluid tr apped within the right minor fissure. It is approximately moderate in size. The left pleural effusi on is slightly smaller. There is a 1.5 cm pulmonary nodule in the left upper lobe. There is some compressive atelectasis of both lower lobes, right greater than left. No pathologicall y enlarged lymph nodes are evident. No definite central pulmonary embolus is evident. No axillary lymphadenopathy is noted. The visualized upper abdomen reveals no definite acute abnorma lity. There is mild levoscoliosis of the thoracic spine. There is scattered degenerative and osteoa rthritic change. IMPRESSION: 1. No definite central pulmonary embolus demonstrated. The extent of the contrast opacification sli ghtly limits evaluation of the lobar and segmental pulmonary branches. 2. A 1.5 cm left upper lobe pulmonary nodule. This pulmonary nodule is nonspecific. A followup exa mination in 3 months is recommended to document stability. Alternatively, PET CT evaluation may be h elpful. 3. Loculated moderate right and small simple left pleural effusion. 4. Bibasilar atelectasis, right greater than left. POS: [facility]
--- NOTE | 2017-11-29 11:40 | PDOC.PN ---
- Subjective Encounter Start Date: 11/29/17 Encounter Start Time: 08:00 -: old records requested/rev Patient seen and examined for pneumonia, pt is hard of hearing. No new complaints. No overnight events - Objective Resuscitation Status: Resuscitation Status FULL:Full Resuscitation MAR Reviewed: Yes Vital Signs & Weight: Vital Signs (12 hours) Temp Pulse Resp BP BP BP Pulse Ox 11/29/17 10:26 94 L 11/29/17 09:24 131/81 11/29/17 09:00 97.4 F L 74 20 131/81 95 11/29/17 08:30 97.4 F L 74 20 95 11/29/17 05:00 97.4 F L 74 20 137/65 95 11/29/17 04:00 98 11/28/17 23:49 98.2 F 87 20 143/70 H 96 Weight Weight 217 lb 8 oz I&O: 11/28/17 11/29/17 11/30/17 06:59 06:59 06:59 Intake Total 1370 580 Balance 1370 580 Result Diagrams: 11/25/17 04:12 11/25/17 04:12 Additional Labs: Accuchecks 11/29/17 11/29/17 11/28/17 11:15 06:08 20:54 POC Glucose 204 H 152 H 211 H 11/28/17 11/28/17 15:45 11:19 POC Glucose 144 H 140 H Radiology Reviewed by me: Yes (CT angio) EKG Reviewed by me: Yes (nsr) Phys Exam - Physical Examination Constitutional: NAD HEENT: PERRLA, moist MMs, sclera anicteric Neck: no JVD, supple Respiratory: no wheezing, no rales, no rhonchi reduced air entry at base Cardiovascular: RRR, no significant murmur, no rub Gastrointestinal: soft, non-tender, no distention, positive bowel sounds obesity+ Musculoskeletal: no edema, pulses present Neurological: non-focal, normal sensation Lymphatic: no nodes Psychiatric: normal affect Skin: no rash, normal turgor Dx/Plan (1) Chest pain Code(s): R07.9 - CHEST PAIN, UNSPECIFIED Status: Acute Comment: (2) Hyponatremia Code(s): E87.1 - HYPO-OSMOLALITY AND HYPONATREMIA Status: Acute (3) Leucocytosis Code(s): D72.829 - ELEVATED WHITE BLOOD CELL COUNT, UNSPECIFIED Status: Acute (4) Physical deconditioning Code(s): R53.81 - OTHER MALAISE Status: Acute Comment: Will need Rehab placmeent. (5) Sepsis Code(s): A41.9 - SEPSIS, UNSPECIFIED ORGANISM Status: Acute (6) BPH (benign prostatic hyperplasia) Code(s): N40.0 - BENIGN PROSTATIC HYPERPLASIA WITHOUT LOWER URINRY TRACT SYMP Status: Chronic (7) Diabetes type 2, controlled Code(s): E11.9 - TYPE 2 DIABETES MELLITUS WITHOUT COMPLICATIONS Status: Chronic (8) Dyslipidemia Code(s): E78.5 - HYPERLIPIDEMIA, UNSPECIFIED Status: Chronic (9) Hyperlipidemia Code(s): E78.5 - HYPERLIPIDEMIA, UNSPECIFIED Status: Chronic Comment: Start Lipitor 20mg HS (10) Hypertension Code(s): I10 - ESSENTIAL (PRIMARY) HYPERTENSION Status: Chronic (11) Obesity (BMI 30.0-34.9) Code(s): E66.9 - OBESITY, UNSPECIFIED Status: Chronic (12) Hypokalemia Code(s): E87.6 - HYPOKALEMIA Status: Resolved (13) Influenza B Code(s): J10.1 - FLU DUE TO OTH IDENT INFLUENZA VIRUS W OTH RESP MANIFEST Status: Resolved Comment: - Plan cont current plan of care, PT/OT, social media marketing specialist * cardiac cause of chest pain ruled out, for elevated d-dimer will get CT angio chest * medication reviewed as below * symptomatic treatment * will need rehab placement, await approval * restart selected home medication . Review of Systems - Review of Systems Constitutional: negative: fever, chills, sweats, weakness, malaise, other ENT: negative: Ear Pain, Ear Discharge, Nose Pain, Nose Discharge, Nose Congestion, Mouth Pain, Mouth Swelling, Throat Pain, Throat Swelling, Other Respiratory: Cough. negative: Dry, Shortness of Breath, Hemoptysis, SOB with Excertion, Pleuritic Pain, Sputum, Wheezing Cardiovascular: negative: chest pain, palpitations, orthopnea, paroxysmal nocturnal dyspnea, edema, light headedness, other Gastrointestinal: negative: Nausea, Vomiting, Abdominal Pain, Diarrhea, Constipation, Melena, Hematochezia, Other Genitourinary: negative: Dysuria, Frequency, Incontinence, Hematuria, Retention , Other Musculoskeletal: negative: Neck Pain, Shoulder Pain, Arm Pain, Back Pain, Hand Pain, Leg Pain, Foot Pain, Other Skin: negative: Rash, Lesions, Kvng, Bruising, Other - Medications/Allergies Allergies/Adverse Reactions: Allergies Allergy/AdvReac Type Severity Reaction Status Date / Time Penicillins Allergy Verified 12/22/16 00:11 Medications: Current Medications Acetaminophen (Tylenol) 650 mg PO Q4H PRN PRN Reason: Headache/Fever or Pain Hydrocodone Bitart/Acetaminophen ([place] 5/325) 1 tab PO Q4H PRN PRN Reason: Moderate Pain (4-6) Last Admin: 11/29/17 06:18 Dose: 1 tab Albuterol/Ipratropium (Duoneb) 3 ml NEB Q4H PRN PRN Reason: SOB/ WHEEZING Last Admin: 11/28/17 22:56 Dose: 3 ml Atorvastatin Calcium (Lipitor) 40 mg PO [facility] Last Admin: 11/28/17 20:09 Dose: 40 mg Bisacodyl (Dulcolax) 10 mg PO DAILYPRN PRN PRN Reason: Constipation Last Admin: 11/27/17 08:51 Dose: 10 mg Carvedilol (Coreg) 25 mg PO BID-[facility] Last Admin: 11/29/17 09:12 Dose: 25 mg Dextrose/Water (Dextrose 50%) 25 gm SLOW IVP PRN PRN PRN Reason: Hypoglycemia Enoxaparin Sodium (Lovenox) 40 mg SC 0900 [facility] Last Admin: 11/29/17 09:18 Dose: 40 mg Famotidine (Pepcid) 20 mg PO BID [facility] Last Admin: 11/29/17 09:12 Dose: 20 mg Glimepiride (Amaryl) 2 mg PO DAILY [facility] Last Admin: 11/29/17 09:23 Dose: 2 mg Glucagon (Glucagon) 1 mg IM PRN PRN PRN Reason: Hypoglycemia Hydralazine HCl (Apresoline) 10 mg SLOW IVP Q3H PRN PRN Reason: SBP Greater Than 170 Last Admin: 11/28/17 22:59 Dose: 10 mg Dextrose/Water (D5w) 1,000 mls @ 0 mls/hr IV .Q0M PRN; As Directed PRN Reason: Hypoglycemia Ibuprofen (Motrin) 400 mg PO Q6H PRN PRN Reason: Mild-Moderate Pain (1-5) Last Admin: 11/29/17 00:31 Dose: 400 mg Insulin Human Lispro (Humalog) 0 units SC .MILD SLIDING SCALE PRN PRN Reason: Mild Correctional Scale Last Admin: 11/28/17 06:26 Dose: 2 unit Levofloxacin (Levaquin) 750 mg PO 0900 [facility] Last Admin: 11/29/17 09:12 Dose: 750 mg Lisinopril (Zestril) 20 mg PO BID [facility] Last Admin: 11/29/17 09:24 Dose: 20 mg Metformin HCl (Glucophage) 1,000 mg PO BID-[facility] Last Admin: 11/29/17 09:08 Dose: Not Given Morphine Sulfate (Morphine) 2 mg SLOW IVP Q4H PRN PRN Reason: Severe Pain (7-10) Last Admin: 11/29/17 09:27 Dose: 2 mg Nitroglycerin (Nitrostat) 0.4 mg SL Q5MIN PRN PRN Reason: Chest Pain Nystatin (Mycostatin Powder) 0 gm TOP PRN PRN PRN Reason: TOPICAL IRRITATION/RASH Last Admin: 11/26/17 21:32 Dose: 1 applic Ondansetron HCl (Zofran Odt) 4 mg PO Q6H PRN PRN Reason: Nausea/Vomiting Last Admin: 11/22/17 16:28 Dose: 4 mg Ondansetron HCl (Zofran) 4 mg IVP Q6H PRN PRN Reason: Nausea/Vomiting Pioglitazone HCl (Actos) 15 mg PO DAILY [facility] Last Admin: 11/29/17 09:12 Dose: 15 mg Sodium Chloride (Flush - Normal Saline) 10 ml IVF Q12HR [facility] Last Admin: 11/29/17 09:20 Dose: 10 ml Sodium Chloride (Flush - Normal Saline) 10 ml IVF PRN PRN PRN Reason: Saline Flush Last Admin: 11/28/17 23:00 Dose: 10 ml Tamsulosin HCl (Flomax) 0.4 mg PO QPM [facility] Last Admin: 11/28/17 20:08 Dose: 0.4 mg
[2017-11-29] MEDS: HumaLOG 300 UNITS/3 ML VIAL SC PRN (11:54)
--- NOTE | 2017-11-29 15:01 | EKG ---
Test Reason : Blood Pressure : / mmHG Vent. Rate : 086 BPM Atrial Rate : 086 BPM P-R Int : 150 ms QRS Dur : 088 ms QT Int : 404 ms P-R-T Axes : 024 -27 002 degrees QTc Int : 483 ms Normal sinus rhythm Inferior infarct (Doubtful) Abnormal ECG When compared with ECG of 28-NOV-2017 02:38, (Unconfirmed) Premature ventricular complexes are no longer Present Premature atrial complexes are no longer Present Inferior infarct is now Present Confirmed by DOV ZIEGLER ([id number]) on 11/29/2017 3:01:41 PM Referred By: PAM Confirmed By:DOV ZIEGLER
--- NOTE | 2017-11-29 15:05 | EKG ---
Test Reason : STAT CP Blood Pressure : / mmHG Vent. Rate : 085 BPM Atrial Rate : 085 BPM P-R Int : 140 ms QRS Dur : 106 ms QT Int : 406 ms P-R-T Axes : 020 -31 040 degrees QTc Int : 483 ms Sinus rhythm with occasional Premature ventricular complexes and Premature atrial complexes Left axis deviation Prolonged QT Abnormal ECG When compared with ECG of 25-NOV-2017 04:47, Premature ventricular complexes are now Present Premature atrial complexes are now Present T wave amplitude has decreased in Anterior leads Confirmed by DOV ZIEGLER ([id number]) on 11/29/2017 3:05:39 PM Referred By: ASHOK BEYER Confirmed By:DOV ZIEGLER
--- NOTE | 2017-11-29 19:06 | CON ---
DATE OF CONSULTATION: 11/29/2017 REASON FOR CONSULTATION: Back and chest pain. Please see Aditi Peres PA-C's full consultation for details. HISTORY OF PRESENT ILLNESS: Mr. Monte is a very pleasant 72-year-old gentleman who was seen and evalu ated in the past. He was initially seen and evaluated after a CVA and have nonsustained VT. He has undergone a noninva sive stress study in the past dated 09/17/2017 that was negative for ischemia with LVEF 54%. Recently, he presented with back pain. He was diagnosed with a recent flu. He also had chest pain t hat was felt to be atypical. He does have a structurally coronary disease. PHYSICAL EXAMINATION: GENERAL: Patient is a pleasant male who is in no acute distress. The patient appears his stated age . VITAL SIGNS: 154/79, pulse 79, temperature 98.8. NEUROLOGIC: The patient is alert and oriented times 3 with no focal neurologic deficits. HEENT: Sclerae without icterus. Mouth has moist mucous membranes with normal pallor. NECK: No JVD. Carotid upstroke brisk. No bruits bilaterally. LUNGS: Clear to auscultation with unlabored respirations. BACK: No scoliosis or kyphosis. CARDIAC: Regular rate and rhythm with normal S1 and S2. No S3 or S4 noted. No significant rubs, mu rmurs, thrills, or gallops noted throughout the precordium. PMI is not displaced. There is no carlene ternal heave. ABDOMEN: Soft, nontender, nondistended. No peritoneal signs present. No hepatosplenomegaly. No ab normal striae. EXTREMITIES: 2+ femoral and 2+ dorsalis pedis pulses. No cyanosis, clubbing, or edema. SKIN: No gross abnormalities. PERTINENT LABORATORY DATA: Hemoglobin 14.4, hematocrit 43.6. IMPRESSION: 1. Atypical chest pain. 2. Negative stress test. 3. Positive influenza B. 4. Recent stroke. RECOMMENDATIONS: Mr. Monte has had a recent stress study that was negative for ischemia. His LVEF wa s also negative. His symptoms are not typical of angina. We will continue to follow with you. At t his point, I do not feel the need to proceed with any invasive means or measures unless his current s tatus changes.
[2017-11-29 19:34] LABS: Bilirubin Negative (Negative); Blood, Urine Negative (Negative); Clarity CLEAR (Clear); Glucose, Urine (Dipstick) >=1000 mg/dL (Negative); Leukocyte Negative (Negative); Nitrite Negative (Negative); Protein, Urine (Dipstick) 30 mg/dL (Neg-Trace); Specific Gravity, Urine 1.045 (1.002-1.036); pH, Urine 5.5 (5.0-9.0)
[2017-11-29 19:41] LABS: Bacteria/HPF None Seen HPF (None Seen); Hyaline Casts/LPF 0-3 HYALINE CAST LPF (0-3 Hyaline); Squamous Epithelial 0-3 HPF (0-3); WBC/HPF 0-3 HPF (0-3)
[2017-11-29 20:12] LABS: Crystals/HPF 1+ URIC ACID HPF (Negative)
[2017-11-29] MEDS: Atorvastatin Calcium 40 MG TAB PO SCH (21:25)
[2017-11-29] MEDS: Tamsulosin HCl 0.4 MG CAP PO SCH (21:26)
[2017-11-30] MEDS: hydrALAZINE 20 MG/ML VIAL SLOW IVP PRN (04:51)
[2017-11-30 07:14] LABS: #Eosinphils 0.1 thou/uL (0.0-0.7); #Monocytes 0.8 thou/uL (0.11-0.59); #Neutrophils 8.2 thou/uL (1.40-6.50); %Basophils 0.4 % (0.0-1.0); %Eosinophils 1.3 % (0.0-10.0); %Lymphocytes 9.6 % (21.0-51.0); %Monocytes 7.7 % (0.0-10.0); %Neutrophils 81.1 % (42.0-75.0); Hemoglobin 13.9 g/dL (14.0-18.0); Mean Corpuscular HGB CONC 33.4 g/dL (32.0-36.0); Mean Corpuscular Volume 92.7 fl (80.0-94.0); Mean Platelet Volume 6.6 fL (7.4-10.4); Platelet Count 267 thou/uL (130-400); RBC Distribution Width 12.2 % (11.5-14.5); Red Blood Cell (RBC) Count 4.48 mill/uL (4.70-6.10)
[2017-11-30 07:32] LABS: Anion Gap 15 mmol/L (10-20); BUN (Urea Nitrogen) 8 mg/dL (8.4-25.7); Calc. Creatinine Clearance 160 mL/min (70-130); Calcium 8.2 mg/dL (7.8-10.44); Carbon Dioxide 23 mmol/L (23-31); Chloride 95 mmol/L (98-107); Estimated GFR-MDRD Greater than 90; Glucose 155 mg/dL (80-115); Potassium 3.3 mmol/L (3.5-5.1); Sodium 130 mmol/L (136-145)
[2017-11-30] MEDS ORDERED: Potassium Chloride 20 MEQ TAB PO SCH (09:15)
--- NOTE | 2017-11-30 09:58 | PDOC.PN ---
- Subjective Encounter Start Date: 11/30/17 Encounter Start Time: 08:00 Patient seen and examined for pneumonia. No new complaints. No overnight events - Objective Resuscitation Status: Resuscitation Status FULL:Full Resuscitation MAR Reviewed: Yes Vital Signs & Weight: Vital Signs (12 hours) Temp Pulse Resp BP Pulse Ox 11/30/17 08:28 98.9 F 87 16 167/79 H 90 L 11/30/17 08:00 98.9 F 87 16 11/30/17 04:51 88 11/30/17 04:00 99.1 F 88 17 183/94 H 94 L 11/30/17 02:48 95 Weight Weight 214 lb 11.2 oz I&O: 11/29/17 11/30/17 12/01/17 06:59 06:59 06:59 Intake Total 580 480 Balance 580 480 Result Diagrams: 11/30/17 07:06 11/30/17 07:06 Additional Labs: Accuchecks 11/30/17 11/29/17 11/29/17 06:31 20:33 16:47 POC Glucose 162 H 174 H 109 11/29/17 11:15 POC Glucose 204 H EKG Reviewed by me: Yes (nsr) Phys Exam - Physical Examination Constitutional: NAD HEENT: PERRLA, moist MMs, sclera anicteric Neck: no JVD, supple Respiratory: no wheezing, no rales, no rhonchi Cardiovascular: RRR, no significant murmur, no rub Gastrointestinal: soft, non-tender, no distention, positive bowel sounds Musculoskeletal: no edema, pulses present Neurological: non-focal, normal sensation Lymphatic: no nodes Psychiatric: normal affect Skin: no rash, normal turgor Dx/Plan (1) Chest pain Code(s): R07.9 - CHEST PAIN, UNSPECIFIED Status: Resolved Comment: (2) Hyponatremia Code(s): E87.1 - HYPO-OSMOLALITY AND HYPONATREMIA Status: Acute (3) Leucocytosis Code(s): D72.829 - ELEVATED WHITE BLOOD CELL COUNT, UNSPECIFIED Status: Resolved (4) Physical deconditioning Code(s): R53.81 - OTHER MALAISE Status: Acute Comment: Will need Rehab placmeent. (5) Sepsis Code(s): A41.9 - SEPSIS, UNSPECIFIED ORGANISM Status: Acute (6) BPH (benign prostatic hyperplasia) Code(s): N40.0 - BENIGN PROSTATIC HYPERPLASIA WITHOUT LOWER URINRY TRACT SYMP Status: Chronic (7) Diabetes type 2, controlled Code(s): E11.9 - TYPE 2 DIABETES MELLITUS WITHOUT COMPLICATIONS Status: Chronic (8) Dyslipidemia Code(s): E78.5 - HYPERLIPIDEMIA, UNSPECIFIED Status: Chronic (9) Hyperlipidemia Code(s): E78.5 - HYPERLIPIDEMIA, UNSPECIFIED Status: Chronic Comment: Start Lipitor 20mg HS (10) Hypertension Code(s): I10 - ESSENTIAL (PRIMARY) HYPERTENSION Status: Chronic (11) Obesity (BMI 30.0-34.9) Code(s): E66.9 - OBESITY, UNSPECIFIED Status: Chronic (12) Hypokalemia Code(s): E87.6 - HYPOKALEMIA Status: Resolved (13) Influenza B Code(s): J10.1 - FLU DUE TO OTH IDENT INFLUENZA VIRUS W OTH RESP MANIFEST Status: Resolved Comment: - Plan cont current plan of care, continue antibiotics, social studies department chair * continue levaquin * replace potassium * await placement * medication reviewed as below * symptomatic treatment. Review of Systems - Review of Systems Constitutional: weakness. negative: fever, chills, sweats, malaise, other Eyes: negative: Pain, Vision Change, Conjunctivae Inflammation, Eyelid Inflammation, Redness, Other ENT: negative: Ear Pain, Ear Discharge, Nose Pain, Nose Discharge, Nose Congestion, Mouth Pain, Mouth Swelling, Throat Pain, Throat Swelling, Other Respiratory: negative: Cough, Dry, Shortness of Breath, Hemoptysis, SOB with Excertion, Pleuritic Pain, Sputum, Wheezing Cardiovascular: negative: chest pain, palpitations, orthopnea, paroxysmal nocturnal dyspnea, edema, light headedness, other Gastrointestinal: negative: Nausea, Vomiting, Abdominal Pain, Diarrhea, Constipation, Melena, Hematochezia, Other Genitourinary: negative: Dysuria, Frequency, Incontinence, Hematuria, Retention , Other Musculoskeletal: negative: Neck Pain, Shoulder Pain, Arm Pain, Back Pain, Hand Pain, Leg Pain, Foot Pain, Other Skin: negative: Rash, Lesions, Kvng, Bruising, Other - Medications/Allergies Allergies/Adverse Reactions: Allergies Allergy/AdvReac Type Severity Reaction Status Date / Time Penicillins Allergy Verified 07/11/17 00:11 Medications: Current Medications Acetaminophen (Tylenol) 650 mg PO Q4H PRN PRN Reason: Headache/Fever or Pain Hydrocodone Bitart/Acetaminophen ([place] 5/325) 1 tab PO Q4H PRN PRN Reason: Moderate Pain (4-6) Last Admin: 11/29/17 21:26 Dose: 1 tab Albuterol/Ipratropium (Duoneb) 3 ml NEB Q4H PRN PRN Reason: SOB/ WHEEZING Last Admin: 11/29/17 15:54 Dose: 3 ml Atorvastatin Calcium (Lipitor) 40 mg PO [facility] Last Admin: 11/29/17 21:25 Dose: 40 mg Bisacodyl (Dulcolax) 10 mg PO DAILYPRN PRN PRN Reason: Constipation Last Admin: 11/27/17 08:51 Dose: 10 mg [facility] Last Admin: 11/29/17 16:32 Dose: 25 mg Dextrose/Water (Dextrose 50%) 25 gm SLOW IVP PRN PRN PRN Reason: Hypoglycemia Enoxaparin Sodium (Lovenox) 40 mg SC 0900 [facility] Last Admin: 11/29/17 09:18 Dose: 40 mg Famotidine (Pepcid) 20 mg PO BID [facility] Last Admin: 11/29/17 21:26 Dose: 20 mg Glimepiride (Amaryl) 2 mg PO DAILY [facility] Last Admin: 11/29/17 09:23 Dose: 2 mg Glucagon (Glucagon) 1 mg IM PRN PRN PRN Reason: Hypoglycemia Hydralazine HCl (Apresoline) 10 mg SLOW IVP Q3H PRN PRN Reason: SBP Greater Than 170 Last Admin: 11/30/17 04:51 Dose: 10 mg Dextrose/Water (D5w) 1,000 mls @ 0 mls/hr IV .Q0M PRN; As Directed PRN Reason: Hypoglycemia Ibuprofen (Motrin) 400 mg PO Q6H PRN PRN Reason: Mild-Moderate Pain (1-5) Last Admin: 11/29/17 00:31 Dose: 400 mg Insulin Human Lispro (Humalog) 0 units SC .MILD SLIDING SCALE PRN PRN Reason: Mild Correctional Scale Last Admin: 11/29/17 11:54 Dose: 3 unit Levofloxacin (Levaquin) 750 mg PO 0900 [facility] Last Admin: 11/29/17 09:12 Dose: 750 mg Lisinopril (Zestril) 20 mg PO BID [facility] Last Admin: 11/29/17 21:26 Dose: 20 mg Metformin HCl (Glucophage) 1,000 mg PO BID-[facility] Last Admin: 11/29/17 09:08 Dose: Not Given Morphine Sulfate (Morphine) 2 mg SLOW IVP Q4H PRN PRN Reason: Severe Pain (7-10) Last Admin: 11/29/17 09:27 Dose: 2 mg Nitroglycerin (Nitrostat) 0.4 mg SL Q5MIN PRN PRN Reason: Chest Pain Nystatin (Mycostatin Powder) 0 gm TOP PRN PRN PRN Reason: TOPICAL IRRITATION/RASH Last Admin: 11/26/17 21:32 Dose: 1 applic Ondansetron HCl (Zofran Odt) 4 mg PO Q6H PRN PRN Reason: Nausea/Vomiting Last Admin: 11/22/17 16:28 Dose: 4 mg Ondansetron HCl (Zofran) 4 mg IVP Q6H PRN PRN Reason: Nausea/Vomiting Pioglitazone HCl (Actos) 15 mg PO DAILY [facility] Last Admin: 11/29/17 09:12 Dose: 15 mg Potassium Chloride (K-Dur) 40 meq PO ONE [facility] Stop: 11/30/17 11:00 Sodium Chloride (Flush - Normal Saline) 10 ml IVF Q12HR [facility] Last Admin: 11/29/17 21:26 Dose: 10 ml Sodium Chloride (Flush - Normal Saline) 10 ml IVF PRN PRN PRN Reason: Saline Flush Last Admin: 11/28/17 23:00 Dose: 10 ml Tamsulosin HCl (Flomax) 0.4 mg PO QPM [facility] Last Admin: 11/29/17 21:26 Dose: 0.4 mg
[2017-11-30] MEDS: Carvedilol 25 MG TAB PO SCH ×2 (10:01→19:28)
[2017-11-30] MEDS: metFORMIN 500 MG TAB PO SCH (10:01)
[2017-11-30] MEDS: Pioglitazone HCl 15 MG TAB PO SCH (10:01)
[2017-11-30] MEDS: Famotidine 20 MG TAB PO SCH ×2 (10:02→21:12)
[2017-11-30] MEDS: Glimepiride 2 MG TAB PO SCH (10:02)
[2017-11-30] MEDS: Lisinopril 20 MG TAB PO SCH ×2 (10:03→21:12)
[2017-11-30] MEDS: Enoxaparin Sodium 40 MG/0.4 ML SYRINGE SC SCH (10:03)
--- NOTE | 2017-11-30 10:51 | CON ---
DATE OF CONSULTATION: 11/29/2017 ADMITTING PHYSICIAN: [facility] Service CONSULTING PHYSICIAN: Dr. Jc Lai, Cardiology. REASON FOR CONSULTATION: Chest pain. HISTORY OF PRESENT ILLNESS: Mr. Monte is a pleasant 72-year-old male who was admitted for septic shoc k and influenza type B. He was on the medical floor and developed symptoms of chest pain. He was tr ansferred to telemetry. EKGs have been unremarkable other than isolated PVC on one EKG at the time o f his chest discomfort. The patient was recently admitted in 09/2017 for a CVA and nonsustained VT. At that time, he had an echo showing his EF to be normal and a stress test was negative for any acut e ischemia. He tells me that he has intermittent chest pain and that he has over the last month. It is unrelated to exertion. It usually resolves on its own after rest. He also describes back pain. The pain is left-sided and moves to his mid sternum. He denies any associated shortness of breath, palpitations, dizziness or lightheadedness with the pain. PAST MEDICAL HISTORY: 1. Nonsustained ventricular tachycardia 09/2017. 2. Hypertension. 3. Diabetes mellitus type 2. 4. History of CVA in 09/2017. 5. Recent sepsis. PAST SURGICAL HISTORY: Left foot toe amputations. CURRENT MEDICATIONS: Norvasc 5 mg daily, Lipitor 20 mg at bedtime, Coreg 12.5 mg b.i.d., glyburide 5 mg daily. Empagliflozin and liraglutide 1 tablet p.o. daily, lisinopril 20 mg daily, metformin 500 mg twice daily, Actos 50 mg daily, Flomax 0.4 mg daily. ALLERGIES: PENICILLIN. FAMILY HISTORY: Negative for premature coronary artery disease. SOCIAL HISTORY: No alcohol or tobacco use. REVIEW OF SYSTEMS: A 12-point review of systems discussed with patient. Other than HPI and past med ical history mentioned above no significant findings. PHYSICAL EXAMINATION: GENERAL: This is a pleasant elderly male who is in no acute distress. He is sitting in bed resting comfortably and conversing easily. NEUROLOGIC: He is alert, awake, and oriented x3. VITAL SIGNS: Temperature 97.8, respiratory rate is 20, pulse is 76, blood pressure 130/69. I&Os are not recorded. HEENT: Head is atraumatic, normocephalic. Mucous membranes are moist. NECK: Supple, with no JVD or bruits noted. CARDIOVASCULAR: Reveals mild expiratory wheeze bilaterally at the bases. ABDOMEN: Soft, nontender to palpation, nondistended. EXTREMITIES: Show no clubbing, cyanosis or edema. SKIN: Warm and dry. PSYCHIATRIC: Mood and affect are appropriate. LABORATORY: CBC was last checked 11/25/2017. At that time white blood cell count had decreased to 1 2.2. H&H were stable. Last CMP appears to have been from 11/25/2017. At that time, sodium was 131, potassium 3.5, chloride 97, carbon dioxide 20, BUN 11, creatinine 0.74, glucose 147. UA is ordered for today and pending. TELEMETRY: The patient is in sinus rhythm with no arrhythmias. No VT noted on tele. A 12 lead EKG was reviewed. Sinus rhythm is noted with no ischemic changes. IMPRESSION: 1. Recurrent chest pain. 2. History of nonsustained ventricular tachycardia. 3. Hypertension. 4. Diabetes mellitus type 2. 5. History of cerebrovascular accident. 6. Recent sepsis. PLAN: At this time, I discussed option with the patient. His EKG does not indicate any acute ischem ia. I am not convinced his chest pain is cardiac in nature, but definitively early option is to proc eed with cardiac catheterization. I do not think he is a candidate at this time given his recent epi sode of sepsis. He is also aggressively coughing in the room. I would recommend medical management. If his pain continues, we could try long-acting nitrates. I will discuss the case with Dr. Brittany hurtado and further recommendations are pending hospital course.
[2017-11-30] MEDS ORDERED: Diabetic Tussin 200 MG/10 ML UDCUP PO PRN (11:07)
--- NOTE | 2017-11-30 11:59 | PQF ---
DATE: 11-30-17 ATTN: DR. JOYCELYN DEAN Please exercise your independent, professional judgment in responding to the clarification form. Clinical indicators are provided on the bottom of this form for your review Diagnosis: ACUTE SEPSIS Present on Admission (POA): [ x ] Yes [ ] No [ ] Unable to determine Coding guidelines require hospitals to identify whether a diagnosis was present on admission (POA) or not. To accurately assign the appropriate POA indicator, this information must be clearly documented within the medical record. CLINICAL INDICATORS - SIGNS / SYMPTOMS / LABS ER DX: INFLUENZA; DKA; METABOLIC ACIDOSIS 6-10 WBC: 25.6, 19.9; BANDS: 21, 21 TEMP: 101.5 RECTAL PULSE: 87-102 WEAKNESS/SOB/PRODUCTIVE COUGH W WHITE SPUTUM/BREATH SOUNDS-WHEEZING; SEPSIS ALERT NOT ACTIVATED D/T ABX AND FLUIDS GIVEN AT TX FACILITY, IVF GIVEN FOR LOW BP H&P: ON ARRIVAL- FELT TO BE MORE IN SEPSIS; F.U B POSITIVE DX: INFLUENZA B; SIRS, PRESENT ON ADMISSION, METABOLIC ACIDOSIS, HYPONATREMIA 11-25 FICKLEN PN: VIRAL SEPSIS VS BACTERIAL INFECTION- CONTINUE ABX COVERAGE 11-29 DR. DEAN PN: F/U FOR PNEUMONIA, DX: SEPSIS; INFLUENZA RISK FACTORS: ER: HX OF HTN, DM, STROKE, SMOKER, WEAKNESS X 4 DAYS, WEAKNESS/ SOB/PRODUCTIVE COUGH W WHITE SPUTUM / BREATH SOUNDS-WHEEZING; SEPSIS ALERT NOT ACTIVATED D/T ABX AND FLUIDS GIVEN AT TX FACILITY, IVF GIVEN FOR LOW BP TREATMENT: ER: VANCOMYCIN, ZOSYN, IVF, (AUG) 11-24-17 LEVAQUIN (This form is maintained as a part of the permanent medical record) 2014 [facility], [employer]. All Rights Reserved TERRIE [email or web address] Office: [phone] [facility] CENTERLeilani
--- NOTE | 2017-11-30 11:59 | DIS ---
PRIMARY CARE PHYSICIAN: Dr. Fabian Centeno DATE OF ADMISSION: 11/21/2017 DATE OF DISCHARGE: Pending. DISCHARGE DISPOSITION: residential unit. PRIMARY DISCHARGE DIAGNOSES: 1. Sepsis. 2. Hyponatremia. 3. Influenza B. 4. Leukocytosis, resolved. 5. Hypokalemia, corrected. 6. Chest pain, ruled out acute coronary syndrome. 7. Physical deconditioning. SECONDARY DISCHARGE DIAGNOSES: Benign enlargement of prostate, obesity with BMI 32, diabetes type 2, dyslipidemia, hypertension. PRIMARY PROCEDURE/OPERATION: None. RADIOLOGICAL INVESTIGATION: Chest x-ray on admission showed hypoventilation, but no acute process. CT angio was negative for pulmonary embolism. Ultrasound negative for any DVT. Echocardiography ingrid wed normal EF, diastolic dysfunction. SIGNIFICANT LABS: WBC 10.0, hemoglobin 13.9, platelets 267. D-dimer 2.78. Sodium 130, potassium 3. 3, BUN 8, creatinine 0.59, calcium 8.2. Cardiac enzymes negative x3. LDL 22. Urinalysis unremarkab le. Serum ketones 1.60. Blood culture negative. Influenza B positive. DISCHARGE MEDICATIONS: Lipitor 40 mg p.o. daily, Coreg 25 mg p.o. b.i.d., empagliflozin with liraglu tide 25/5 one tablet daily, Amaryl 2 mg p.o. daily, lisinopril 20 mg p.o. b.i.d., metformin 1000 mg p .o. b.i.d., Actos 15 mg p.o. daily, Flomax 0.4 mg p.o. daily, Mucinex 600 mg twice daily for 7 days, Levaquin 750 mg p.o. daily for 7 days. Pepcid 20 mg p.o. b.i.d. CONTRAINDICATIONS: None. CODE STATUS: FULL CODE. INPATIENT CONSULTANTS: Dr. Gupta was following while in hospital. Cardiology was consulted for ch est pain. TEST RESULTS PENDING ON DISCHARGE: None. ALLERGIES: PENICILLIN. DISCHARGE PLAN: Post hospital, the patient will be discharged to care home home where he will follow with primary care physician. HOSPITAL COURSE: A 72-year-old male with the above-mentioned medical problem who was admitted by Dr. Nunez on 11/22/2017. Please see his H&P for further detail. He was brought to the emergency room initially at [facility] for generalized weakness, back pain. He was diagnosed wi th metabolic acidosis with elevated beta hydroxybutyrate and hyperglycemia. He was having mild DKA. He was started on insulin drip and subsequently he was transferred to our hospital. As he was on in sulin drip we admitted him to medical ICU and that is why Dr. Gupta evaluated this patient. He had influenza B positive. His chest x-ray was normal. He had leukocytosis and that was resolved by the time of discharge, his blood culture remained negative. He had abnormal electrolytes with hypokalem ia, hyponatremia, which was treated while in hospital. This patient has significant physical decondi tioning and that is why he needs placement. With help of protective services case worker, we arranged a care home home. He will continue all his previous medication and new medication antibiotic therapy and probio tic as prescribed. The patient is medically stable at this point. He is waiting for his insurance t o approve for care home home. The patient is seen and examined. Please see my progress note from today for further details. This patient was initially transferred to telemetry floor because he was having chest pain and subseq uently we did cardiac enzymes and ruled out acute coronary syndrome. Echocardiography showed diastol ic dysfunction. Cardiology also evaluated this patient. Once we have placement arranged, then we wi ll consider discharging him back to assisted.
[2017-11-30] MEDS: HumaLOG 300 UNITS/3 ML VIAL SC PRN (12:35)
[2017-11-30] MEDS: HYDROcodone/Acetaminophen 5/325 mg Tablet PO PRN (16:41)
[2017-11-30] MEDS: Atorvastatin Calcium 40 MG TAB PO SCH (21:12)
[2017-11-30] MEDS: Tamsulosin HCl 0.4 MG CAP PO SCH (21:12)
[2017-12-01] MEDS: HYDROcodone/Acetaminophen 5/325 mg Tablet PO PRN ×3 (02:41→15:49)
[2017-12-01] MEDS: HumaLOG 300 UNITS/3 ML VIAL SC PRN (06:31)
[2017-12-01 08:10] LABS: Anion Gap 10 mmol/L (10-20); BUN (Urea Nitrogen) 9 mg/dL (8.4-25.7); Calc. Creatinine Clearance 166 mL/min (70-130); Calcium 8.1 mg/dL (7.8-10.44); Carbon Dioxide 28 mmol/L (23-31); Chloride 96 mmol/L (98-107); Estimated GFR-MDRD Greater than 90; Glucose 146 mg/dL (80-115); Potassium 3.4 mmol/L (3.5-5.1); Sodium 131 mmol/L (136-145)
[2017-12-01] MEDS: Famotidine 20 MG TAB PO SCH (08:14)
[2017-12-01] MEDS: Lisinopril 20 MG TAB PO SCH (08:14)
[2017-12-01] MEDS: Carvedilol 25 MG TAB PO SCH (08:14)
[2017-12-01] MEDS: Glimepiride 2 MG TAB PO SCH (08:15)
[2017-12-01] MEDS: Enoxaparin Sodium 40 MG/0.4 ML SYRINGE SC SCH (08:15)
[2017-12-01] MEDS: Pioglitazone HCl 15 MG TAB PO SCH (08:15)
[2017-12-01] MEDS ORDERED: Potassium Chloride 20 MEQ TAB PO SCH (09:30)
--- NOTE | 2017-12-01 10:06 | PDOC.PN ---
- Subjective Encounter Start Date: 12/01/17 Encounter Start Time: 08:10 Patient seen and examined for hypokalemia. No new complaints. No overnight events - Objective Resuscitation Status: Resuscitation Status FULL:Full Resuscitation MAR Reviewed: Yes Vital Signs & Weight: Vital Signs (12 hours) Temp Pulse Resp BP BP Pulse Ox 12/01/17 08:14 139/83 12/01/17 08:00 98.2 F 82 20 93 L 12/01/17 07:46 98.2 F 82 20 139/83 93 L 12/01/17 06:56 92 L 12/01/17 04:00 97.5 F L 88 18 149/77 H 92 L 12/01/17 00:00 98.9 F 88 18 183/96 H 93 L Weight Weight 214 lb 8 oz I&O: 11/30/17 12/01/17 12/02/17 06:59 06:59 06:59 Intake Total 480 590 Balance 480 590 Result Diagrams: 11/30/17 07:06 12/01/17 07:41 Additional Labs: Accuchecks 12/01/17 11/30/17 04:38 10:35 POC Glucose 174 H 187 H Phys Exam - Physical Examination Constitutional: NAD HEENT: PERRLA, moist MMs, sclera anicteric Neck: no JVD, supple Respiratory: no wheezing, no rales, no rhonchi Cardiovascular: RRR, no significant murmur, no rub Gastrointestinal: soft, non-tender, no distention, positive bowel sounds obeisty+ Musculoskeletal: no edema, pulses present Neurological: non-focal, normal sensation, moves all 4 limbs Lymphatic: no nodes Psychiatric: normal affect, A&O x 3 Skin: no rash, normal turgor Dx/Plan (1) Chest pain Code(s): R07.9 - CHEST PAIN, UNSPECIFIED Status: Resolved Comment: (2) Hyponatremia Code(s): E87.1 - HYPO-OSMOLALITY AND HYPONATREMIA Status: Acute (3) Leucocytosis Code(s): D72.829 - ELEVATED WHITE BLOOD CELL COUNT, UNSPECIFIED Status: Resolved (4) Physical deconditioning Code(s): R53.81 - OTHER MALAISE Status: Acute Comment: Will need Rehab placmeent. (5) Sepsis Code(s): A41.9 - SEPSIS, UNSPECIFIED ORGANISM Status: Resolved (6) BPH (benign prostatic hyperplasia) Code(s): N40.0 - BENIGN PROSTATIC HYPERPLASIA WITHOUT LOWER URINRY TRACT SYMP Status: Chronic (7) Diabetes type 2, controlled Code(s): E11.9 - TYPE 2 DIABETES MELLITUS WITHOUT COMPLICATIONS Status: Chronic (8) Dyslipidemia Code(s): E78.5 - HYPERLIPIDEMIA, UNSPECIFIED Status: Chronic (9) Hyperlipidemia Code(s): E78.5 - HYPERLIPIDEMIA, UNSPECIFIED Status: Chronic Comment: Start Lipitor 20mg HS (10) Hypertension Code(s): I10 - ESSENTIAL (PRIMARY) HYPERTENSION Status: Chronic (11) Obesity (BMI 30.0-34.9) Code(s): E66.9 - OBESITY, UNSPECIFIED Status: Chronic (12) Hypokalemia Code(s): E87.6 - HYPOKALEMIA Status: Acute (13) Influenza B Code(s): J10.1 - FLU DUE TO OTH IDENT INFLUENZA VIRUS W OTH RESP MANIFEST Status: Resolved Comment: - Plan cont current plan of care, PT/OT, social professionals * replace potassium * await placement * continue PT/OT * overall stable with current medical treatment * medication reviewed as below * symptomatic treatment. Review of Systems - Review of Systems ENT: negative: Ear Pain, Ear Discharge, Nose Pain, Nose Discharge, Nose Congestion, Mouth Pain, Mouth Swelling, Throat Pain, Throat Swelling, Other Respiratory: negative: Cough, Dry, Shortness of Breath, Hemoptysis, SOB with Excertion, Pleuritic Pain, Sputum, Wheezing Cardiovascular: negative: chest pain, palpitations, orthopnea, paroxysmal nocturnal dyspnea, edema, light headedness, other Gastrointestinal: negative: Nausea, Vomiting, Abdominal Pain, Diarrhea, Constipation, Melena, Hematochezia, Other Genitourinary: negative: Dysuria, Frequency, Incontinence, Hematuria, Retention , Other Musculoskeletal: negative: Neck Pain, Shoulder Pain, Arm Pain, Back Pain, Hand Pain, Leg Pain, Foot Pain, Other Skin: negative: Rash, Lesions, Kvng, Bruising, Other - Medications/Allergies Allergies/Adverse Reactions: Allergies Allergy/AdvReac Type Severity Reaction Status Date / Time Penicillins Allergy Verified 12/22/16 00:11 Medications: Current Medications Acetaminophen (Tylenol) 650 mg PO Q4H PRN PRN Reason: Headache/Fever or Pain Hydrocodone Bitart/Acetaminophen ([place] 5/325) 1 tab PO Q4H PRN PRN Reason: Moderate Pain (4-6) Last Admin: 12/01/17 09:57 Dose: 1 tab Albuterol/Ipratropium (Duoneb) 3 ml NEB Q4H PRN PRN Reason: SOB/ WHEEZING Last Admin: 11/29/17 15:54 Dose: 3 ml Atorvastatin Calcium (Lipitor) 40 mg PO [facility] Last Admin: 11/30/17 21:12 Dose: 40 mg Bisacodyl (Dulcolax) 10 mg PO DAILYPRN PRN PRN Reason: Constipation Last Admin: 11/27/17 08:51 Dose: 10 mg Carvedilol (Coreg) 25 mg PO BID-[facility] Last Admin: 12/01/17 08:14 Dose: 25 mg Dextrose/Water (Dextrose 50%) 25 gm SLOW IVP PRN PRN PRN Reason: Hypoglycemia Enoxaparin Sodium (Lovenox) 40 mg SC 0900 [facility] Last Admin: 12/01/17 08:15 Dose: 40 mg Famotidine (Pepcid) 20 mg PO BID [facility] Last Admin: 12/01/17 08:14 Dose: 20 mg Glimepiride (Amaryl) 2 mg PO DAILY [facility] Last Admin: 12/01/17 08:15 Dose: 2 mg Glucagon (Glucagon) 1 mg IM PRN PRN PRN Reason: Hypoglycemia Guaifenesin (Robitussin Sf) 200 mg PO Q4H PRN PRN Reason: Cough Last Admin: 11/30/17 12:32 Dose: 200 mg Hydralazine HCl (Apresoline) 10 mg SLOW IVP Q3H PRN PRN Reason: SBP Greater Than 170 Last Admin: 11/30/17 04:51 Dose: 10 mg Dextrose/Water (D5w) 1,000 mls @ 0 mls/hr IV .Q0M PRN; As Directed PRN Reason: Hypoglycemia Ibuprofen (Motrin) 400 mg PO Q6H PRN PRN Reason: Mild-Moderate Pain (1-5) Last Admin: 11/29/17 00:31 Dose: 400 mg Insulin Human Lispro (Humalog) 0 units SC .MILD SLIDING SCALE PRN PRN Reason: Mild Correctional Scale Last Admin: 12/01/17 06:31 Dose: 2 unit Levofloxacin (Levaquin) 750 mg PO 0900 [facility] Last Admin: 12/01/17 08:14 Dose: 750 mg Lisinopril (Zestril) 20 mg PO BID [facility] Last Admin: 12/01/17 08:14 Dose: 20 mg Metformin HCl (Glucophage) 1,000 mg PO BID-[facility] Morphine Sulfate (Morphine) 2 mg SLOW IVP Q4H PRN PRN Reason: Severe Pain (7-10) Last Admin: 11/29/17 09:27 Dose: 2 mg Nitroglycerin (Nitrostat) 0.4 mg SL Q5MIN PRN PRN Reason: Chest Pain Nystatin (Mycostatin Powder) 0 gm TOP PRN PRN PRN Reason: TOPICAL IRRITATION/RASH Last Admin: 11/26/17 21:32 Dose: 1 applic Ondansetron HCl (Zofran Odt) 4 mg PO Q6H PRN PRN Reason: Nausea/Vomiting Last Admin: 11/22/17 16:28 Dose: 4 mg Ondansetron HCl (Zofran) 4 mg IVP Q6H PRN PRN Reason: Nausea/Vomiting Pioglitazone HCl (Actos) 15 mg PO DAILY [facility] Last Admin: 12/01/17 08:15 Dose: 15 mg Potassium Chloride (K-Dur) 40 meq PO ONE [facility] Stop: 12/01/17 11:00 Last Admin: 12/01/17 09:54 Dose: 40 meq Sodium Chloride (Flush - Normal Saline) 10 ml IVF Q12HR [facility] Last Admin: 12/01/17 08:15 Dose: 10 ml Sodium Chloride (Flush - Normal Saline) 10 ml IVF PRN PRN PRN Reason: Saline Flush Last Admin: 11/28/17 23:00 Dose: 10 ml Tamsulosin HCl (Flomax) 0.4 mg PO QPM [facility] Last Admin: 11/30/17 21:12 Dose: 0.4 mg
[2017-12-01 11:28] VITALS: BP 145/74; TEMP 97.7
[2017-12-01] MEDS ORDERED: metFORMIN 500 MG TAB PO SCH (17:00)
--- NOTE | 2017-12-02 09:19 | ADD-DIS ---
ADDENDUM Please see my discharge summary dictated on 11/30/2017. No change in my discharge summary. The leigh ent stayed in the hospital because he was waiting for his insurance authorization for fpc home. During that periods, we treated him for hyponatremia and hypokalemia. We replaced his potass ium. The patient is asymptomatic and hemodynamically stable. The patient is seen and examined at [facility] today. Please see my progress note from today for further detail.
== END 2017-12-01 16:17 | DRG 871 ==
LOC: ERS 19:07 → IMCU/EMU 21:30 → T4-B 11-23 17:58 → 2NO 11-28 17:32 → T4-A 11-30 17:17
PROVIDERS: ADMIT Internal Medicine Infectious Disease; ATTEND Internal Medicine Infectious Disease
DX: A41.59 Other Gram-negative sepsis (principal); E11.10 Type 2 diabetes mellitus with ketoacidosis without coma; R65.21 Severe sepsis with septic shock; E87.2 Acidosis; E87.1 Hypo-osmolality and hyponatremia; J10.1 Influenza due to other identified influenza virus with other respiratory manifestations; E11.9 Type 2 diabetes mellitus without complications; Z86.73 Personal history of transient ischemic attack (TIA), and cerebral infarction without residual deficits; I10 Essential (primary) hypertension; E87.6 Hypokalemia; E66.9 Obesity, unspecified; Z68.32 Body mass index [BMI] 32.0-32.9, adult; Z88.0 Allergy status to penicillin; Z89.422 Acquired absence of other left toe(s); N40.0 Benign prostatic hyperplasia without lower urinary tract symptoms; E78.5 Hyperlipidemia, unspecified
CPT/HCPCS: 36415; 36416; 71045; 71275; 80048; 80053; 80061; 80202; 81001; 82010; 82550; 83605; 83690; 83735; 84484; 85007; 85025; 85027; 85379; 87804; 93005; 93010; 93306; 93970; 94640; 94760; 96361; 96365; 96367; 96374; A4216; G8978-GP-CM; G8979-GP-CK; J0360; J1650; J1885; J1956; J2270; J2543; J3010; J3370; J7050; J7620; Q0162

== ENCOUNTER 2018-01-06 15:11 | Inpatient (IN) | payer MEDICARE ==
[2018-01-06] MEDS ORDERED: Mag-Al 1200 mg/1200 mg/30 ML UDCUP PO PRN (16:54)
[2018-01-06] MEDS ORDERED: Acetaminophen 325 MG TAB PO PRN ×2 (16:54)
[2018-01-06] MEDS ORDERED: Senokot 8.6 MG TAB PO PRN ×2 (16:54)
[2018-01-06] MEDS ORDERED: Bisacodyl 5 MG TAB PO PRN ×2 (16:54)
[2018-01-06] MEDS ORDERED: Loratadine 10 MG TAB PO PRN (16:54)
[2018-01-06] MEDS ORDERED: hydrALAZINE 20 MG/ML VIAL SLOW IVP PRN (16:54)
[2018-01-06] MEDS ORDERED: Calcium Carbonate 500 MG ChewTAB PO PRN (16:54)
[2018-01-06] MEDS ORDERED: cloNIDine 0.1 MG TAB PO PRN (16:54)
[2018-01-06] MEDS ORDERED: Ondansetron PF 4 MG/2 ML Vial IVP PRN ×2 (16:54)
[2018-01-06] MEDS ORDERED: Diabetic Tussin 200 MG/10 ML UDCUP PO PRN (16:54)
[2018-01-06] MEDS ORDERED: Nitroglycerin 0.4 MG TAB (25 Tab Bottle) SL PRN (16:54)
[2018-01-06] MEDS ORDERED: Benzonatate 100 MG CAP PO PRN (16:54)
[2018-01-06] MEDS ORDERED: HumaLOG 300 UNITS/3 ML VIAL SC PRN (19:36)
[2018-01-06] MEDS ORDERED: Dextrose 50% Abboject 50 ML SYRINGE SLOW IVP PRN (19:36)
[2018-01-06] MEDS ORDERED: Dextrose 5% in Water 1,000 ML IV PRN (19:36)
[2018-01-06 19:43] VITALS: BMI 29.7
[2018-01-06 20:19] LABS: CKMB 1.5 ng/mL (0-6.6); Troponin I Less than 0.010 ng/mL (< 0.028)
--- NOTE | 2018-01-06 20:43 | HP ---
PRIMARY CARE PHYSICIAN: Out of town, listed as Dr. Fabian Centeno in the [facility]. DATE OF ADMISSION: 01/06/2018 CHIEF COMPLAINT: Aphasia and worsening left-sided weakness. HISTORY OF PRESENTING ILLNESS: Mr. 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 History is mainly obtained by the patie chilango himself who was rather a poor historian because of history of CVA and some dementia I suspect and supplemented by electronic medical records. He was last admitted to our facility last month from 04/2018 to 12/01/2017. At that time, he was admitted and treated for sepsis and influenza type B. Koffi stoddard was discharged to residential unit where he was still residing. According to the patient and with discussion with the ER physician, it seems like that the patient feliciano d some neurological changes today. He was found to have some difficulty with his speech and more pro nounced left-sided weakness at the rehab center and his blood pressure was rather high. He was sent to the emergency room with regards to this. In the ER, he was hemodynamically stable with a blood pressure of 141/86, pulse of 74, temperature 98 .2, saturating 95% on room air. He initially went to [facility] where a CT scan was re portedly done and was unremarkable. He was transferred to our facility for further workup. His bloo d work done in the [facility] showed borderline elevation of troponin at 0.013. When a sked, the patient does report some shortness of breath today, but denies any chest pain. He does rep ort that he did feel that his left side was weaker today and he had difficulty with his speech, but t hose symptoms have resolved. He is now being admitted for further workup and rule out CVA. On record review, it seems like he had a carotid Doppler ultrasound done in 09/2017 at this hospital, which was negative for any hemodynamically significant stenosis. He had an echocardiogram done on 0 11/29/2017 which showed mild diastolic dysfunction with preserved ejection fraction at 60%. PAST MEDICAL HISTORY: 1. Diabetes mellitus, type 2. 2. History of CVA. 3. Hypertension. 4. Dyslipidemia. 5. BPH. PAST SURGICAL HISTORY: Left toe amputation. ALLERGIES: PENICILLIN. FAMILY HISTORY: No history of coronary artery disease, bleeding disorder or stroke. Family history is positive for hypertension and diabetes. SOCIAL HISTORY: He is currently in a rehab facility. Before that, he lives in [place], [place]. He is retired. No history of drug, tobacco or alcohol abuse. CURRENT MEDICATIONS: As per the ER record as follows: Atorvastatin 40 mg daily, carvedilol 25 mg da dana, glimepiride 2 mg t.i.d., lisinopril 20 mg b.i.d., tamsulosin 0.4 mg daily, Aggrenox twice a day, metformin 1000 mg b.i.d., Pepcid 20 mg b.i.d. The dosages further need to be confirmed. REVIEW OF SYSTEMS: A 12-point review of systems is done. It is negative except for those mentioned in the history and physical. LABORATORY DATA: Labs are reviewed from the [facility]. His sodium is 134, bicarbonat e 22, glucose 163, alkaline phosphatase is 164, troponin 0.013, otherwise unremarkable. CBC shows WB Cs 8.07, hemoglobin 14.4, platelet count of 307 without any left shift. PHYSICAL EXAMINATION: VITAL SIGNS: Upon presentation, blood pressure 141/86, pulse of 74, respirations 17, saturating 95% on room air, temperature 98.2. GENERAL: No acute distress. Awake, alert, and oriented, but does appear to have some confusion. He is somewhat disheveled, but in no acute distress. HEENT: Mucous membrane is slightly dry. No oropharyngeal exudate or erythema. Head is normocephali c, atraumatic. Pupils are equal, reactive to light and accommodation. Extraocular movement intact. NECK: Supple without any lymphadenopathy, JVD or bruit. CHEST: Clear to auscultation without any wheezing, rales or rhonchi. Rate and rhythm is regular wit hout any murmur, rubs or gallops. ABDOMEN: Soft, nontender, nondistended with positive bowel sounds. EXTREMITIES: Free of any cyanosis, clubbing, or edema. NEUROLOGIC: Exhibits left-sided weakness in comparison to the right side. His left leg is weaker th an the left arm. He does have some speech impediment, but the speech is not slurred. It seems like he is having a hard time finding the words. PSYCHIATRIC: Normal affect. SKIN: Free of any rashes or bruises. Feel warm and dry to touch. EXTREMITIES: Free of any cyanosis, clubbing, or edema. IMPRESSION AND PLAN: 1. Left-sided weakness and expressive aphasia. Possibly a transient ischemic attack. The patient i s a high risk factor for recurrent transient ischemic attacks. He seems to be taking Aggrenox, proba cleve from his past CVA history. At this time, we will request consultation with Neurology if he needs to have his medications adjusted. Continue with full dose aspirin with statin for now. We will go ahead and obtain an MRI of the brain. At this time, we will hold off on getting another echocardiogr am and carotid Doppler ultrasound as it was done recently. He will be admitted to stroke floor for n ow under observation status and we will consult stroke team and Neurology as above. We will have spe ech therapist evaluate him for his aphasia and safe swallow. Also, obtain a urinalysis to rule out u rinary tract infection as a cause. Obtain a lipid profile as well. 2. Borderline indeterminant troponin. We will trend the serial cardiac enzymes at this time and as above continue high dose aspirin and resume his beta-tien and anjel inhibitor. Doses further need t o be confirmed. 3. History of hypertension. Resume his carvedilol and lisinopril once the dose is confirmed. 4. Diabetes mellitus. We will resume his metformin once he is safe to eat. At this time, we will p ut him on insulin sliding scale with frequent Accu-Cheks. 5. History of cerebrovascular accident. Resume atorvastatin and add high dose aspirin for now. Hol d off on Aggrenox for now until further neurological recommendations. 6. Code status: FULL CODE. Discussed with the patient. 7. Add deep venous thrombosis and gastrointestinal prophylaxis. 8. Add p.r.n. medications. DISPOSITION: Mr. Monte is currently being admitted to the hospital to rule out CVA. Further manageme nt will depend upon his clinical course and neurological recommendations.
[2018-01-06 23:04] LABS: CKMB 1.3 ng/mL (0-6.6); Troponin I Less than 0.010 ng/mL (< 0.028)
[2018-01-07] MEDS: traMADol HCl 50 MG TAB PO PRN ×2 (01:24→21:47)
[2018-01-07 05:32] LABS: #Eosinphils 0.1 thou/uL (0.0-0.7); #Lymphocytes 1.5 thou/uL (1.20-3.40); #Monocytes 0.5 thou/uL (0.11-0.59); #Neutrophils 5.4 thou/uL (1.40-6.50); %Basophils 0.1 % (0.0-1.0); %Eosinophils 1.4 % (0.0-10.0); %Lymphocytes 19.3 % (21.0-51.0); %Monocytes 7.1 % (0.0-10.0); %Neutrophils 72.1 % (42.0-75.0); Hemoglobin 13.4 g/dL (14.0-18.0); Mean Corpuscular HGB CONC 34.4 g/dL (32.0-36.0); Mean Corpuscular Hemoglobin 30.7 pg (27.0-31.0); Mean Corpuscular Volume 89.2 fL (78.0-98.0); Mean Platelet Volume 6.7 fL (7.4-10.4); Platelet Count 267 thou/uL (130-400); RBC Distribution Width 13.5 % (11.5-14.5); Red Blood Cell (RBC) Count 4.35 mill/uL (4.70-6.10); White Blood Cell (WBC) Count 7.5 thou/uL (4.8-10.8)
[2018-01-07 05:46] LABS: Anion Gap 13 mmol/L (10-20); BUN (Urea Nitrogen) 11 mg/dL (8.4-25.7); Calc. Creatinine Clearance 118 mL/min (70-130); Calcium 8.7 mg/dL (7.8-10.44); Carbon Dioxide 26 mmol/L (23-31); Cardiac Risk 2.5 (Less than 4.5); Chloride 100 mmol/L (98-107); Cholesterol 76 mg/dl (< 200 Desired); Estimated GFR-MDRD Greater than 90; Glucose 85 mg/dL (80-115); HDL Cholesterol 30 mg/dL (>60 Neg Risk); LDL Cholesterol, Calculated 29 mg/dL; Potassium 3.2 mmol/L (3.5-5.1); Sodium 136 mmol/L (136-145); Triglycerides 87 mg/dL (Less than 150)
[2018-01-07] MEDS ORDERED: Aspirin 325 mg Enteric Coated Tablet PO SCH (09:00)
[2018-01-07] MEDS ORDERED: Prevnar 13-Val Conj/PF 0.5 ML SYRINGE IM ONE (09:00)
[2018-01-07] MEDS: Enoxaparin Sodium 40 MG/0.4 ML SYRINGE SC SCH (09:18)
--- NOTE | 2018-01-07 11:22 | MRI ---
NONCONTRAST MRI BRAIN: Date: 01-07-18 History: TIA Comparison: 09-17-17 FINDINGS: Again noted is a remote lacunar infarction in the right basal ganglia extending into the periventricu lar white matter on the right with adjacent decreased signal intensity on gradient echo images sugges ting hemosiderin deposition likely related to prior hemorrhage lacunar infarction. Area of encephalomalacia in the watershed distribution of the right MCA/[employer] SERVICES OFF[employer]ER is seen related to remote area of infarction with associated gliosis. Again noted are chronic small vessel ischemic changes and cerebral volume loss. There are at least th ree or four punctate areas of restricted diffusion within the right paraventricular white matter with in both the bauer radiata as well as centrum semiovale suggesting small acute white matter infarctio ns in the right cerebral hemisphere. There is no acute cortical infarction visualized. There is cerebral volume loss present. Appropriate flow voids are demonstrated at the base of the brain. Visualized paranasal sinuses and mastoid air cells are clear. Orbits and skull base have a normal MRI appearance. IMPRESSION: 1. Scattered punctate acute white matter infarctions in the right cerebral hemisphere. No acute corti shaji infarction is visualized. 2. Stable encephalomalacia watershed distribution right MCA/[employer]AL SERVICES OFFICER infarction. 3. Remote lacunar infarction with hemosiderin deposition in the right basal ganglia. 4. Cerebral and cerebellar volume loss. POS: [facility]
[2018-01-07] MEDS ORDERED: ISOVUE-370 76%-LOCM 1 ML ONE (11:34)
--- NOTE | 2018-01-07 13:29 | PDOC.PN ---
- Subjective Encounter Start Date: 01/07/18 Encounter Start Time: 13:00 Subjective: pt up in bed no complains - Objective Result Diagrams: 01/07/18 05:04 01/07/18 05:04 Phys Exam - Physical Examination HEENT: PERRLA, moist MMs, sclera anicteric, TM's clear, oral pharynx no lesions , 2+ tonsils Neck: no nodes, no JVD, supple, full ROM Respiratory: no wheezing, no rales, no rhonchi, wheezing present, clear to auscultation bilateral Cardiovascular: RRR, no significant murmur, no rub, gallop, irregular Gastrointestinal: soft, non-tender, no distention, positive bowel sounds multiple bilateral toe amputation mild weakness to his left upper ext Psychiatric: normal affect, A&O x 3 Dx/Plan (1) Stroke Code(s): I63.9 - CEREBRAL INFARCTION, UNSPECIFIED Status: Acute (2) Diabetes type 2, controlled Code(s): E11.9 - TYPE 2 DIABETES MELLITUS WITHOUT COMPLICATIONS Status: Chronic (3) Hyperlipidemia Code(s): E78.5 - HYPERLIPIDEMIA, UNSPECIFIED Status: Chronic Comment: Start Lipitor 20mg HS (4) Hypertension Code(s): I10 - ESSENTIAL (PRIMARY) HYPERTENSION Status: Chronic - Plan pt's mri indicated scattered puncated acute white matter infarcts. pt's on -: aggrenox will continue, will add statin, pt had recent carotid and echo -: Await neruo recommendation * . Review of Systems - Review of Systems ENT: negative: Ear Pain, Ear Discharge, Nose Pain, Nose Discharge, Nose Congestion, Mouth Pain, Mouth Swelling, Throat Pain, Throat Swelling, Other Respiratory: negative: Cough, Dry, Shortness of Breath, Hemoptysis, SOB with Excertion, Pleuritic Pain, Sputum, Wheezing Cardiovascular: negative: chest pain, palpitations, orthopnea, paroxysmal nocturnal dyspnea, edema, light headedness, other Gastrointestinal: negative: Nausea, Vomiting, Abdominal Pain, Diarrhea, Constipation, Melena, Hematochezia, Other Genitourinary: negative: Dysuria, Frequency, Incontinence, Hematuria, Retention , Other - Medications/Allergies Allergies/Adverse Reactions: Allergies Allergy/AdvReac Type Severity Reaction Status Date / Time Penicillins Allergy Verified 12/22/16 00:11 Medications: Current Medications Acetaminophen (Tylenol) 650 mg PO Q4H PRN PRN Reason: Headache/Fever or Pain Last Admin: 01/06/18 22:34 Dose: 650 mg Al Hydroxide/Mg Hydroxide (Maalox) 30 ml PO Q6H PRN PRN Reason: Heartburn or Indigestion Benzonatate (Tessalon) 100 mg PO Q4H PRN PRN Reason: Cough Bisacodyl (Dulcolax) 10 mg PO DAILYPRN PRN PRN Reason: Constipation Calcium Carbonate (Tums) 1,000 mg PO Q4H PRN PRN Reason: Heartburn or Indigestion Clonidine (Catapres) 0.1 mg PO Q4H PRN PRN Reason: Systolic BP > 180 Dextrose/Water (Dextrose 50%) 25 gm SLOW IVP PRN PRN PRN Reason: Hypoglycemia Dipyridamole/Aspirin (Aggrenox) 1 cap PO BID BERTHA Enoxaparin Sodium (Lovenox) 40 mg SC 0900 BERTHA Last Admin: 01/07/18 09:18 Dose: 40 mg Glucagon (Glucagon) 1 mg IM PRN PRN PRN Reason: Hypoglycemia Guaifenesin (Robitussin Sf) 200 mg PO Q4H PRN PRN Reason: Cough Hydralazine HCl (Apresoline) 10 mg SLOW IVP Q4H PRN PRN Reason: Systolic BP > 180 Dextrose/Water (D5w) 1,000 mls @ 0 mls/hr IV .Q0M PRN; As Directed PRN Reason: Hypoglycemia Insulin Human Lispro (Humalog) 0 units SC .MODERATE SLIDING SC PRN PRN Reason: Moderate Correctional Scale Insulin Human Lispro (Humalog) 0 units SC .BEDTIME SLIDING SC PRN PRN Reason: Bedtime Correctional Scale Loratadine (Claritin) 10 mg PO DAILYPRN PRN PRN Reason: Sinus Symptoms Nitroglycerin (Nitrostat) 0.4 mg SL Q5MIN PRN PRN Reason: Chest Pain Ondansetron HCl (Zofran) 4 mg IVP Q6H PRN PRN Reason: Nausea/Vomiting Pravastatin Sodium (Pravachol) 20 mg PO HS BERTHA Senna (Senokot) 2 tab PO HSPRN PRN PRN Reason: Constipation Tramadol HCl (Ultram) 50 mg PO Q4H PRN PRN Reason: Moderate Pain (4-6) Last Admin: 01/07/18 01:24 Dose: 50 mg
[2018-01-07] MEDS: Labetalol HCl 100 MG/20 ML VIAL SLOW IVP PRN ×2 (14:15→23:35)
--- NOTE | 2018-01-07 16:32 | EKG ---
Test Reason : Blood Pressure : / mmHG Vent. Rate : 094 BPM Atrial Rate : 094 BPM P-R Int : 142 ms QRS Dur : 092 ms QT Int : 360 ms P-R-T Axes : 028 -43 100 degrees QTc Int : 450 ms Normal sinus rhythm Left axis deviation Abnormal ECG When compared with ECG of 06-JAN-2018 15:18, (Unconfirmed) Nonspecific T wave abnormality no longer evident in Inferior leads Confirmed by PATRICE TRUJILLO, . SEric (4) on 01/07/2018 4:31:57 PM Referred By: ELI Confirmed By:DR. Antionette IBRAHIM MD
--- NOTE | 2018-01-07 16:32 | CT ---
CT ANGIOGRAM NECK WITH CONTRAST: Date: 01/07/18 Time: 1540 hours HISTORY: 72-year-old male with stroke, acute. Dr. Nazario reported the left pneumothorax by telephone to nurse, Celestina Lanier RN, at 1603 hours on 12/[address] Nazario then reported the pneumothorax by telephone to Dr. Lorelei Perera at 1606 hours on 01/07/18 . TECHNIQUE: Following IV contrast bolus injection of 100 mL of Isovue-370, arterial bolus chasing technique scan was performed from approximately 4 cm inferior to the prasanth to the inferior edge of the orbits. Coronal and sagittal 3D MIP reconstructions. FINDINGS: There is a left anterior pneumothorax, which occupies approximately 20-25% volume of the left hemitho rax, incompletely imaged, and possibly larger. The small left pleural effusion demonstrated on CT angiogram of the chest has grown in volume, and reaches the left apex now. It is estimated to o ccupy approximately 30% volume of the left hemithorax. There is a smaller right pleural effusion whic h is incompletely imaged. Mid portions of the right subclavian artery are obscured by streak artifact from contrast bolus in the adjacent right subclavian vein. The proximal and far distal portions of t he right subclavian artery are normal in caliber. The aortic arch, brachiocephalic, bilateral vertebral, left subclavian, bilateral common carotid, and bilateral internal carotid, arteries, are essentially normal, with no significant plaque and no sign ificant stenosis. Multilevel high grade degenerative disc disease. No high grade degenerative facet d isease with the relative exception of left C2-3 facet joint. Again noted is the noncalcified, smoothly marginated, 15 x 13 x 14 mm left upper lobe pulmonary nodul e. IMPRESSION: 1. New moderate size left pneumothorax. 2. Interval increase in volume of left pleural effusion, moderate size. 3. Smaller right pleural effusion. 4. 15 mm left upper lobe pulmonary nodule. PET scan recommended. 5. No hemodynamically significant stenosis in the major arteries of the neck. CODE CR. POS: [facility]
[2018-01-07 17:19] LABS: Bilirubin Negative (Negative); Blood, Urine Negative (Negative); Clarity CLEAR (Clear); Glucose, Urine (Dipstick) Negative (Negative); Leukocyte Negative (Negative); Nitrite Negative (Negative); Protein, Urine (Dipstick) Negative (Neg-Trace); Specific Gravity, Urine 1.014 (1.002-1.036); pH, Urine 5.5 (5.0-9.0)
[2018-01-07 17:22] LABS: Bacteria/HPF None Seen HPF (None Seen); Hyaline Casts/LPF 0-3 HYALINE CAST LPF (0-3 Hyaline); Pathc Cast-AUWi Flag 0.29 (0-2.49); RBC/HPF 0-3 HPF (0-3); Squamous Epithelial None Seen HPF (0-3); WBC/HPF 0-3 HPF (0-3)
[2018-01-07] MEDS ORDERED: Lidocaine 1% (PF) 30 ML VIAL IJ SCH (18:15)
[2018-01-07] MEDS ORDERED: Lidocaine 1% (PF) 30 ML VIAL ONE (18:17)
[2018-01-07 19:38] LABS: Hemoglobin 13.9 g/dL (14.0-18.0); Platelet Count 288 thou/uL (130-400)
[2018-01-07 20:08] LABS: CKMB 1.2 ng/mL (0-6.6); Troponin I 0.014 ng/mL (< 0.028)
--- NOTE | 2018-01-07 20:56 | RAD ---
PORTABLE CHEST: 01/07/18 HISTORY: Hydropneumothorax. COMPARISON: 11/21/17 study. The heart size appears borderline for portable technique. There is a left chest tube with the tip in the left apex. No signs of pneumothorax or pleural effusion. Right lung is clear. IMPRESSION: Left sided chest tube in place. POS: [facility]
--- NOTE | 2018-01-07 21:01 | CON ---
DATE OF CONSULTATION: 01/07/2018 REFERRING PHYSICIAN: Nette Keating MD REASON FOR CONSULTATION: Left-sided weakness and dysarthria. HISTORY OF PRESENT ILLNESS: Mr. Monte is a pleasant 72-year-old male who has been consulted for evaluation of left-sided weakness and dysarthria. The patient has a history of stroke for which he was admitted to the [facility] in September 2017. At that time, he had developed left-sided weakness and dysarthria. He was discharged to a long-term facility for rehabilitation. He wa s slowly improving in his strength and then yesterday he developed sudden onset of worsening weakness on his left side, as well as difficulty with his speech. The rehab center had measured his blood pr essure, which was really high, which prompted them to bring him to the [facility] for further evaluation. The patient reports of no significant change in his strength since yesterday. H e denies any changes in his speech. He denies any headache, chest pain, palpitation, numbness, tingl ing, dysarthria, or dysphagia. PAST MEDICAL HISTORY: Significant for hypertension, diabetes, history of stroke, hyperlipidemia, BPH . PAST SURGICAL HISTORY: Significant for left toe amputations. FAMILY HISTORY: Noncontributory. SOCIAL HISTORY: He is currently living in a rehabilitation facility. He denies smoking, alcohol use , or illicit drug use. CURRENT MEDICATIONS: Please review MAR. ALLERGIES: Include PENICILLIN. REVIEW OF SYSTEMS: As mentioned above in history of present illness, otherwise negative. PHYSICAL EXAMINATION: VITAL SIGNS: Blood pressure of 186/109, pulse of 81, temperature of 98.6, respirations of 16, O2 sat s of 96% on room air. GENERAL: Well-developed, well-nourished male in no apparent distress. RESPIRATORY: Clear to auscultation bilaterally. CARDIOVASCULAR: Regular rate and rhythm. NEUROLOGIC: Mental status: The patient is awake, alert, oriented x3. Speech and language: Fluent speech. Cranial nerves: Pupils are 3 mm and reactive. Visual nam are intact. External muscles are intact. No nystagmus is noted. There is a left facial droop noted. Tongue and uvula are midlin e. Motor exam showed normal tone and bulk with 5/5 strength in right upper and right lower extremity . Strength in the left upper extremity is 4/5. Strength in the left lower extremity is 3 to 4/5. S ensory: Sensation is intact and symmetric. Deep tendon reflexes, 2+ reflexes in both upper and lowe r extremities. Babinski: Plantar responses extensor on the left. Coordination intact to finger-nos e-finger and finger tapping bilaterally. LABORATORY DATA: Reviewed, which included CBC and CMP, which is significant for potassium of 3.2, ot herwise unremarkable. IMAGING STUDIES: MRI brain without contrast was reviewed, which showed right posterior frontal acute ischemic infarct. IMPRESSION: 1. Acute ischemic infarct involving the right middle cerebral artery distribution. 2. Hypertension. 3. Diabetes. 4. Hyperlipidemia. Mr. Monte is a pleasant 72-year-old male with a recent history of stroke presented with a re current episode of worsening left-sided weakness and dysarthria. His symptoms have now resolved. Hi s MRI does show an acute ischemic event involving the right MCA distribution. Based on the location and the fact that it is scattered, I am concerned that this may be thromboembolic ischemic event. I would recommend obtaining CT angiogram of the neck to rule out carotid artery disease. He was on asp irin before his last admission and he had a stroke, thus he was switched over to Aggrenox. He has an other stroke while on Aggrenox and thus I will recommend switching to Plavix 75 mg daily for secondar y stroke prevention. Consult PT, OT, Speech Therapy. Continue supportive care. Thank you for consultation.
[2018-01-07] MEDS: Pravastatin Sodium 20 MG TAB PO SCH (21:48)
[2018-01-07] MEDS ORDERED: HYDROcodone/Acetaminophen 5/325 mg Tablet PO PRN (23:08)
[2018-01-07] MEDS: HYDROcodone/Acetaminophen 5/325 mg Tablet PO PRN (23:30)
--- NOTE | 2018-01-08 03:36 | OP ---
PREOPERATIVE DIAGNOSIS: Left hydropneumothorax. PROCEDURE: Left tube thoracostomy. SURGEON: Jeremías Johnson MD ANESTHESIA: 1% lidocaine. PROCEDURE IN DETAIL: After prepping and draping the left chest, lidocaine was infiltrated in the inf ramammary anterior axillary line. Skin incision was made, tunnel created to the level of the ribs wh ere further lidocaine infiltration was performed. The chest was entered with a clamp, a finger inser glenroy and a 20 Citizen Of [place] chest tube was then advanced and connected to suction while it was being secured to the skin. About 350 mL of nonclotting bloody fluid was removed and the patient did have an air le ak at the conclusion of the procedure. Post-insertion chest x-ray shows resolution of the hydropneum othorax.
--- NOTE | 2018-01-08 05:12 | CON ---
DATE OF CONSULTATION: 01/07/2018 HISTORY OF PRESENT ILLNESS: This is a pleasant 72-year-old gentleman who was recently hospitalized a bout a month ago for a stroke. He was seen by Cardiology at that time due to some ventricular tachyc ardia. He was discharged and at least according to the patient was seen in hospital after he t ripped and fell and he was told he had broken two ribs on his left side. He was then readmitted here on 01/06/2018 with perhaps some difficulty with speech and left-sided weakness and previously had a right hemispheric stroke at some point in the past. He underwent a CTA of his carotids today, which was unremarkable in that regard, but he was found to have a hydropneumothorax. When he was hospitali d about 2 weeks ago, he had small bilateral effusions. PAST MEDICAL HISTORY: Primarily obtained from the chart as the patient is not a very reliable histor charity includes diabetes mellitus, hypertension, dyslipidemia, and previous stroke. SOCIAL HISTORY: The patient states he lives in [place] with his son, although the chart in the [place] [facility] state that he is in a snf at this time. The patient chews tobacco and denies a smokin g history. MEDICATIONS: Include atorvastatin, Coreg, glimepiride, lisinopril, Flomax, Aggrenox, metformin, Pepc id. ALLERGIES: PENICILLIN. PHYSICAL EXAMINATION: GENERAL: He is an alert and cooperative gentleman, in no distress, breathing comfortably. VITAL SIGNS: Blood pressure 140/80, heart rate 68. NECK: Without carotid bruits. LUNGS: Clear to auscultation. CARDIAC: Regular rate and rhythm. ABDOMEN: Soft, nontender. EXTREMITIES: He has no peripheral edema. PLAN: At this time is for insertion of a small bore chest tube for his hydropneumothorax, which was possibly related to his fall. Informed consent has been obtained.
[2018-01-08 05:27] LABS: #Eosinphils 0.2 thou/uL (0.0-0.7); #Lymphocytes 1.9 thou/uL (1.20-3.40); #Monocytes 0.6 thou/uL (0.11-0.59); #Neutrophils 6.7 thou/uL (1.40-6.50); %Basophils 0.2 % (0.0-1.0); %Eosinophils 2.1 % (0.0-10.0); %Lymphocytes 20.4 % (21.0-51.0); %Monocytes 6.2 % (0.0-10.0); %Neutrophils 71.1 % (42.0-75.0); Hemoglobin 13.4 g/dL (14.0-18.0); Mean Corpuscular HGB CONC 34.2 g/dL (32.0-36.0); Mean Corpuscular Hemoglobin 30.6 pg (27.0-31.0); Mean Corpuscular Volume 89.4 fL (78.0-98.0); Mean Platelet Volume 6.4 fL (7.4-10.4); Platelet Count 272 thou/uL (130-400); RBC Distribution Width 13.7 % (11.5-14.5); Red Blood Cell (RBC) Count 4.39 mill/uL (4.70-6.10); White Blood Cell (WBC) Count 9.4 thou/uL (4.8-10.8)
[2018-01-08] MEDS ORDERED: Aggrenox 200-25mg CAP PO SCH (09:00)
[2018-01-08] MEDS: Clopidogrel Bisulfate 75 MG TAB PO SCH (09:06)
[2018-01-08] MEDS: HYDROcodone/Acetaminophen 5/325 mg Tablet PO PRN (09:06)
[2018-01-08] MEDS: Enoxaparin Sodium 40 MG/0.4 ML SYRINGE SC SCH (09:12)
[2018-01-08] MEDS: HumaLOG 300 UNITS/3 ML VIAL SC PRN (11:53)
--- NOTE | 2018-01-08 11:57 | EKG ---
Test Reason : Blood Pressure : / mmHG Vent. Rate : 072 BPM Atrial Rate : 072 BPM P-R Int : 138 ms QRS Dur : 096 ms QT Int : 438 ms P-R-T Axes : 017 -20 165 degrees QTc Int : 479 ms Normal sinus rhythm T wave abnormality, consider lateral ischemia Prolonged QT Abnormal ECG Confirmed by BELKYS MA ([id number]), production editor JOSE DE JESUS CERVANTES ([id number]) on 01/08/2018 11:57:23 AM Referred By: Confirmed By:BELKYS MA
--- NOTE | 2018-01-08 12:57 | RAD ---
PORTABLE AP CHEST X-RAY: 01/08/2018 HISTORY: Evaluate thoracostomy tube. Follow-up evaluation. COMPARISON: 01/07/2018 FINDINGS: Left-sided thoracostomy tube remains in place and may be slightly withdrawn when compared to the prio r exam. No pneumothorax is visualized. There is bibasilar atelectasis present. The thoracic aortic arch remains prominent in appearance, but this is probably attributable to the technique of the exam . The cardiac silhouette is within normal limits. No other interval change. IMPRESSION: Stable chest with left-sided thoracostomy tube remaining in position. POS: [facility]
[2018-01-08 14:25] LABS: CKMB 1.2 ng/mL (0-6.6); Troponin I Less than 0.010 ng/mL (< 0.028)
[2018-01-08 14:36] LABS: Anion Gap 12 mmol/L (10-20); BUN (Urea Nitrogen) 8 mg/dL (8.4-25.7); Calc. Creatinine Clearance 111 mL/min (70-130); Calcium 8.8 mg/dL (7.8-10.44); Carbon Dioxide 28 mmol/L (23-31); Chloride 98 mmol/L (98-107); Estimated GFR-MDRD Greater than 90; Glucose 125 mg/dL (80-115); Potassium 3.1 mmol/L (3.5-5.1); Sodium 135 mmol/L (136-145)
--- NOTE | 2018-01-08 19:25 | PDOC.EVN ---
Event Note - Event Note Event Note: Nurse called in regards to CTA that was ordered as stroke work up indicated pneumothorax. Pt prior to this did complain of chest pain but was not hypoxic. CV surgery paged for chest tube placement.
--- NOTE | 2018-01-08 19:27 | PDOC.PN ---
- Subjective Encounter Start Date: 01/08/18 Encounter Start Time: 10:30 Subjective: pt up in bed no complains - Objective Vital Signs & Weight: Vital Signs (12 hours) Temp Pulse Resp BP Pulse Ox 01/08/18 18:26 95 01/08/18 16:00 98.3 F 69 16 162/95 H 94 L 01/08/18 12:00 96.1 F L 80 20 126/92 H 94 L 01/08/18 11:52 97 01/08/18 08:04 97.3 F L 98 20 01/08/18 08:03 97.3 F L 98 20 183/110 H 95 01/08/18 08:02 95 I&O: 01/07/18 01/08/18 01/09/18 06:59 06:59 06:59 Intake Total 940 500 Output Total 825 200 Balance 115 300 Result Diagrams: 01/08/18 05:10 01/08/18 13:51 Additional Labs: Accuchecks 01/08/18 01/08/18 01/08/18 17:05 11:37 06:06 POC Glucose 107 172 H 136 H 01/07/18 21:00 POC Glucose 151 H Phys Exam - Physical Examination HEENT: PERRLA, moist MMs, sclera anicteric, TM's clear, oral pharynx no lesions , 2+ tonsils Neck: no nodes, no JVD, supple, full ROM Respiratory: no wheezing, no rales, no rhonchi, wheezing present, clear to auscultation bilateral Cardiovascular: RRR, no significant murmur, no rub, gallop, irregular Gastrointestinal: soft, non-tender, no distention, positive bowel sounds Dx/Plan (1) Stroke Code(s): I63.9 - CEREBRAL INFARCTION, UNSPECIFIED Status: Acute (2) Diabetes type 2, controlled Code(s): E11.9 - TYPE 2 DIABETES MELLITUS WITHOUT COMPLICATIONS Status: Chronic (3) Hyperlipidemia Code(s): E78.5 - HYPERLIPIDEMIA, UNSPECIFIED Status: Chronic Comment: Start Lipitor 20mg HS (4) Hypertension Code(s): I10 - ESSENTIAL (PRIMARY) HYPERTENSION Status: Chronic (5) Pneumothorax Code(s): J93.9 - PNEUMOTHORAX, UNSPECIFIED Status: Acute (6) Pulmonary nodule Code(s): R91.1 - SOLITARY PULMONARY NODULE Status: Acute - Plan s/p chest tube placement. Pt denies any more chest pain -: will conitnue plavix -: hh stable * . Review of Systems - Review of Systems Respiratory: negative: Cough, Dry, Shortness of Breath, Hemoptysis, SOB with Excertion, Pleuritic Pain, Sputum, Wheezing Cardiovascular: negative: chest pain, palpitations, orthopnea, paroxysmal nocturnal dyspnea, edema, light headedness, other Gastrointestinal: negative: Nausea, Vomiting, Abdominal Pain, Diarrhea, Constipation, Melena, Hematochezia, Other - Medications/Allergies Allergies/Adverse Reactions: Allergies Allergy/AdvReac Type Severity Reaction Status Date / Time Penicillins Allergy Verified 12/22/16 00:11 Medications: Current Medications Acetaminophen (Tylenol) 650 mg PO Q4H PRN PRN Reason: Headache/Fever or Pain Last Admin: 01/06/18 22:34 Dose: 650 mg Hydrocodone Bitart/Acetaminophen ([place] 5/325) 1 tab PO Q4H PRN PRN Reason: Moderate Pain (4-6) Hydrocodone Bitart/Acetaminophen ([place] 5/325) 2 tab PO Q4H PRN PRN Reason: Moderate to Severe Pain (6-10) Last Admin: 01/08/18 09:06 Dose: 2 tab Al Hydroxide/Mg Hydroxide (Maalox) 30 ml PO Q6H PRN PRN Reason: Heartburn or Indigestion Albuterol/Ipratropium (Duoneb) 3 ml IPPB [id number] [facility] Last Admin: 01/08/18 18:26 Dose: 3 ml Benzonatate (Tessalon) 100 mg PO Q4H PRN PRN Reason: Cough Bisacodyl (Dulcolax) 10 mg PO DAILYPRN PRN PRN Reason: Constipation Calcium Carbonate (Tums) 1,000 mg PO Q4H PRN PRN Reason: Heartburn or Indigestion Clopidogrel Bisulfate (Plavix) 75 mg PO DAILY [facility] Last Admin: 01/08/18 09:06 Dose: 75 mg Dextrose/Water (Dextrose 50%) 25 gm SLOW IVP PRN PRN PRN Reason: Hypoglycemia Enoxaparin Sodium (Lovenox) 40 mg SC 0900 [facility] Last Admin: 01/08/18 09:12 Dose: 40 mg Glucagon (Glucagon) 1 mg IM PRN PRN PRN Reason: Hypoglycemia Guaifenesin (Robitussin Sf) 200 mg PO Q4H PRN PRN Reason: Cough Hydralazine HCl (Apresoline) 10 mg SLOW IVP Q4H PRN PRN Reason: Systolic BP > 180 Dextrose/Water (D5w) 1,000 mls @ 0 mls/hr IV .Q0M PRN; As Directed PRN Reason: Hypoglycemia Insulin Human Lispro (Humalog) 0 units SC .MODERATE SLIDING SC PRN PRN Reason: Moderate Correctional Scale Last Admin: 01/08/18 11:53 Dose: 2 unit Insulin Human Lispro (Humalog) 0 units SC .BEDTIME SLIDING SC PRN PRN Reason: Bedtime Correctional Scale Labetalol HCl (Normodyne) 5 mg SLOW IVP Q4H PRN PRN Reason: sbp >190 Last Admin: 01/07/18 23:35 Dose: 5 mg Loratadine (Claritin) 10 mg PO DAILYPRN PRN PRN Reason: Sinus Symptoms Nitroglycerin (Nitrostat) 0.4 mg SL Q5MIN PRN PRN Reason: Chest Pain Last Admin: 01/07/18 14:16 Dose: 0.4 mg Ondansetron HCl (Zofran) 4 mg IVP Q6H PRN PRN Reason: Nausea/Vomiting Pravastatin Sodium (Pravachol) 20 mg PO HS [facility] Last Admin: 01/07/18 21:48 Dose: 20 mg Senna (Senokot) 2 tab PO HSPRN PRN PRN Reason: Constipation Tramadol HCl (Ultram) 50 mg PO Q4H PRN PRN Reason: Moderate Pain (4-6) Last Admin: 01/07/18 21:47 Dose: 50 mg
[2018-01-08] MEDS ORDERED: Potassium Chloride 20 MEQ TAB PO SCH (19:45)
[2018-01-08] MEDS: Pravastatin Sodium 20 MG TAB PO SCH (21:13)
--- NOTE | 2018-01-09 08:06 | RAD ---
UPRIGHT PORTABLE CHEST 1 VIEW: HISTORY: A 72-year-old male with a history of chest tube. COMPARISON: 01/08/18. FINDINGS: A left chest tube is again noted in place. No significant residual pneumothorax. Minimal bibasilar parenchymal changes, stable. Heart size is within normal limits. Monitor leads overlie the chest. IMPRESSION: Stable chest. No new process. POS: [facility]
[2018-01-09] MEDS: Clopidogrel Bisulfate 75 MG TAB PO SCH (08:07)
[2018-01-09] MEDS: Carvedilol 25 MG TAB PO SCH ×2 (08:07→21:07)
[2018-01-09] MEDS: Potassium Chloride 20 MEQ TAB PO SCH ×2 (08:07→17:26)
[2018-01-09] MEDS: Lisinopril 20 MG TAB PO SCH ×2 (08:08→21:06)
[2018-01-09] MEDS: Enoxaparin Sodium 40 MG/0.4 ML SYRINGE SC SCH (08:08)
[2018-01-09] MEDS: Atorvastatin Calcium 40 MG TAB PO SCH (08:08)
[2018-01-09] MEDS: HumaLOG 300 UNITS/3 ML VIAL SC PRN (11:49)
[2018-01-09] MEDS: traMADol HCl 50 MG TAB PO PRN (17:26)
--- NOTE | 2018-01-09 18:12 | PDOC.PN ---
- Subjective Encounter Start Date: 01/09/18 Encounter Start Time: 09:30 Subjective: pt up in bed no complains - Objective Vital Signs & Weight: Vital Signs (12 hours) Temp Pulse Pulse Pulse Resp BP BP 01/09/18 16:00 98.1 F 80 20 01/09/18 15:27 80 79 137/94 H 01/09/18 14:57 01/09/18 12:00 98.3 F 80 16 01/09/18 11:03 01/09/18 08:41 81 01/09/18 08:13 84 184/109 H 01/09/18 08:08 184/109 H 01/09/18 08:06 99.1 F 81 16 01/09/18 07:53 99.1 F 83 16 01/09/18 06:14 BP BP BP Pulse Ox 01/09/18 16:00 137/94 H 98 01/09/18 15:27 155/97 H 01/09/18 14:57 96 01/09/18 12:00 132/77 95 01/09/18 11:03 96 01/09/18 08:41 153/93 H 01/09/18 08:13 01/09/18 08:08 01/09/18 08:06 184/109 H 92 L 01/09/18 07:53 171/100 H 92 L 01/09/18 06:14 94 L I&O: 01/08/18 01/09/18 01/10/18 06:59 06:59 06:59 Intake Total 940 700 Output Total 825 200 Balance 115 500 Result Diagrams: 01/08/18 05:10 01/08/18 13:51 Additional Labs: Accuchecks 01/09/18 01/09/18 01/09/18 16:32 10:31 05:58 POC Glucose 102 179 H 133 H 01/08/18 21:16 POC Glucose 178 H Phys Exam - Physical Examination HEENT: PERRLA, moist MMs, sclera anicteric, TM's clear, oral pharynx no lesions , 2+ tonsils Neck: no nodes, no JVD, supple, full ROM Respiratory: no wheezing, no rales, no rhonchi, wheezing present, clear to auscultation bilateral Cardiovascular: RRR, no significant murmur, no rub, gallop, irregular Gastrointestinal: soft, non-tender, no distention, positive bowel sounds Dx/Plan (1) Stroke Code(s): I63.9 - CEREBRAL INFARCTION, UNSPECIFIED Status: Acute (2) Diabetes type 2, controlled Code(s): E11.9 - TYPE 2 DIABETES MELLITUS WITHOUT COMPLICATIONS Status: Chronic (3) Hyperlipidemia Code(s): E78.5 - HYPERLIPIDEMIA, UNSPECIFIED Status: Chronic Comment: Start Lipitor 20mg HS (4) Hypertension Code(s): I10 - ESSENTIAL (PRIMARY) HYPERTENSION Status: Chronic (5) Pneumothorax Code(s): J93.9 - PNEUMOTHORAX, UNSPECIFIED Status: Acute (6) Pulmonary nodule Code(s): R91.1 - SOLITARY PULMONARY NODULE Status: Acute - Plan cxr resolving pneumothorax -: continue statin/plavix -: once chest tube has been removed will discharge pt to rehab * . Review of Systems - Review of Systems ENT: negative: Ear Pain, Ear Discharge, Nose Pain, Nose Discharge, Nose Congestion, Mouth Pain, Mouth Swelling, Throat Pain, Throat Swelling, Other Respiratory: negative: Cough, Dry, Shortness of Breath, Hemoptysis, SOB with Excertion, Pleuritic Pain, Sputum, Wheezing Cardiovascular: negative: chest pain, palpitations, orthopnea, paroxysmal nocturnal dyspnea, edema, light headedness, other Gastrointestinal: negative: Nausea, Vomiting, Abdominal Pain, Diarrhea, Constipation, Melena, Hematochezia, Other - Medications/Allergies Allergies/Adverse Reactions: Allergies Allergy/AdvReac Type Severity Reaction Status Date / Time Penicillins Allergy Verified 12/22/16 00:11 Medications: Current Medications Acetaminophen (Tylenol) 650 mg PO Q4H PRN PRN Reason: Headache/Fever or Pain Last Admin: 01/06/18 22:34 Dose: 650 mg Hydrocodone Bitart/Acetaminophen ([place] 5/325) 1 tab PO Q4H PRN PRN Reason: Moderate Pain (4-6) Last Admin: 01/09/18 09:33 Dose: 1 tab Hydrocodone Bitart/Acetaminophen ([place] 5/325) 2 tab PO Q4H PRN PRN Reason: Moderate to Severe Pain (6-10) Last Admin: 01/08/18 09:06 Dose: 2 tab Al Hydroxide/Mg Hydroxide (Maalox) 30 ml PO Q6H PRN PRN Reason: Heartburn or Indigestion Albuterol/Ipratropium (Duoneb) 3 ml IPPB [id number] [facility] Last Admin: 01/09/18 14:57 Dose: 3 ml Atorvastatin Calcium (Lipitor) 40 mg PO DAILY [facility] Last Admin: 01/09/18 08:08 Dose: 40 mg Benzonatate (Tessalon) 100 mg PO Q4H PRN PRN Reason: Cough Bisacodyl (Dulcolax) 10 mg PO DAILYPRN PRN PRN Reason: Constipation Calcium Carbonate (Tums) 1,000 mg PO Q4H PRN PRN Reason: Heartburn or Indigestion Carvedilol (Coreg) 12.5 mg PO BID [facility] Last Admin: 01/09/18 08:07 Dose: 12.5 mg Clopidogrel Bisulfate (Plavix) 75 mg PO DAILY [facility] Last Admin: 01/09/18 08:07 Dose: 75 mg Dextrose/Water (Dextrose 50%) 25 gm SLOW IVP PRN PRN PRN Reason: Hypoglycemia Enoxaparin Sodium (Lovenox) 40 mg SC 0900 [facility] Last Admin: 01/09/18 08:08 Dose: 40 mg Glucagon (Glucagon) 1 mg IM PRN PRN PRN Reason: Hypoglycemia Guaifenesin (Robitussin Sf) 200 mg PO Q4H PRN PRN Reason: Cough Hydralazine HCl (Apresoline) 10 mg SLOW IVP Q4H PRN PRN Reason: Systolic BP > 180 Last Admin: 01/09/18 08:13 Dose: 10 mg Dextrose/Water (D5w) 1,000 mls @ 0 mls/hr IV .Q0M PRN; As Directed PRN Reason: Hypoglycemia Insulin Human Lispro (Humalog) 0 units SC .MODERATE SLIDING SC PRN PRN Reason: Moderate Correctional Scale Last Admin: 01/09/18 11:49 Dose: 2 unit Insulin Human Lispro (Humalog) 0 units SC .BEDTIME SLIDING SC PRN PRN Reason: Bedtime Correctional Scale Labetalol HCl (Normodyne) 5 mg SLOW IVP Q4H PRN PRN Reason: sbp >190 Last Admin: 01/07/18 23:35 Dose: 5 mg Lisinopril (Zestril) 20 mg PO BID [facility] Last Admin: 01/09/18 08:08 Dose: 20 mg Loratadine (Claritin) 10 mg PO DAILYPRN PRN PRN Reason: Sinus Symptoms Nitroglycerin (Nitrostat) 0.4 mg SL Q5MIN PRN PRN Reason: Chest Pain Last Admin: 01/07/18 14:16 Dose: 0.4 mg Ondansetron HCl (Zofran) 4 mg IVP Q6H PRN PRN Reason: Nausea/Vomiting Potassium Chloride (K-Dur) 40 meq PO BID- [facility] Stop: 01/09/18 23:59 Last Admin: 01/09/18 17:26 Dose: 40 meq Senna (Senokot) 2 tab PO HSPRN PRN PRN Reason: Constipation Tamsulosin HCl (Flomax) 0.4 mg PO QPM [facility] Tramadol HCl (Ultram) 50 mg PO Q4H PRN PRN Reason: Moderate Pain (4-6) Last Admin: 01/09/18 17:26 Dose: 50 mg
[2018-01-09] MEDS: Tamsulosin HCl 0.4 MG CAP PO SCH (21:07)
[2018-01-10] MEDS: Atorvastatin Calcium 40 MG TAB PO SCH (08:53)
[2018-01-10] MEDS: Carvedilol 25 MG TAB PO SCH ×2 (08:53→21:46)
[2018-01-10] MEDS: Enoxaparin Sodium 40 MG/0.4 ML SYRINGE SC SCH (08:54)
[2018-01-10] MEDS: Clopidogrel Bisulfate 75 MG TAB PO SCH (08:54)
[2018-01-10] MEDS: Lisinopril 20 MG TAB PO SCH ×2 (08:54→21:47)
[2018-01-10 10:21] LABS: Anion Gap 11 mmol/L (10-20); BUN (Urea Nitrogen) 6 mg/dL (8.4-25.7); Calc. Creatinine Clearance 116 mL/min (70-130); Calcium 8.7 mg/dL (7.8-10.44); Carbon Dioxide 25 mmol/L (23-31); Chloride 99 mmol/L (98-107); Estimated GFR-MDRD Greater than 90; Glucose 207 mg/dL (80-115); Potassium 3.7 mmol/L (3.5-5.1); Sodium 131 mmol/L (136-145)
--- NOTE | 2018-01-10 10:22 | RAD ---
CHEST ONE VIEW: History: Dyspnea. FOllow up. Comparison: 01-09-18 FINDINGS: Cardiac silhouette is magnified by projection. Pulmonary vasculature is slightly more engorged than o n the prior study with slight interval increase in patchy bibasilar parenchymal opacity. Mediastinum remains midline. Left thoracostomy tube in place. No evidence of pneumothorax. technology solutions architect leads overlie the chest. IMPRESSION: Stable radiographic appearance of the chest. POS: [facility]
[2018-01-10] MEDS: HumaLOG 300 UNITS/3 ML VIAL SC PRN ×2 (11:40→17:25)
[2018-01-10] MEDS: Tamsulosin HCl 0.4 MG CAP PO SCH (21:47)
[2018-01-11] MEDS ORDERED: Furosemide 40 MG/4 ML VIAL SLOW IVP SCH (09:15)
[2018-01-11] MEDS: Atorvastatin Calcium 40 MG TAB PO SCH (09:23)
[2018-01-11] MEDS: Carvedilol 25 MG TAB PO SCH ×2 (09:23→20:35)
[2018-01-11] MEDS: Lisinopril 20 MG TAB PO SCH ×2 (09:23→20:35)
[2018-01-11] MEDS: Clopidogrel Bisulfate 75 MG TAB PO SCH (09:23)
[2018-01-11] MEDS: Enoxaparin Sodium 40 MG/0.4 ML SYRINGE SC SCH (09:24)
[2018-01-11] MEDS: HumaLOG 300 UNITS/3 ML VIAL SC PRN ×2 (10:57→17:03)
--- NOTE | 2018-01-11 16:57 | PDOC.PN ---
- Subjective Encounter Start Date: 01/10/18 Encounter Start Time: 11:30 Subjective: pt up in bed no complains - Objective Vital Signs & Weight: Vital Signs (12 hours) Temp Pulse Pulse Resp BP BP BP 01/11/18 15:40 98.6 F 83 20 108/61 01/11/18 14:53 80 14 01/11/18 13:24 74 113/83 01/11/18 12:00 98.7 F 84 18 130/84 01/11/18 10:17 80 16 01/11/18 09:23 133/88 01/11/18 08:00 98.2 F 88 14 01/11/18 07:10 98.3 F 80 14 01/11/18 06:31 80 14 BP Pulse Ox 01/11/18 15:40 94 L 01/11/18 14:53 01/11/18 13:24 01/11/18 12:00 94 L 01/11/18 10:17 01/11/18 09:23 01/11/18 08:00 133/88 94 L 01/11/18 07:10 97 01/11/18 06:31 I&O: 01/10/18 01/11/18 01/12/18 06:59 06:59 06:59 Intake Total 740 610 300 Balance 740 610 300 Result Diagrams: 01/08/18 05:10 01/10/18 09:09 Additional Labs: Accuchecks 01/11/18 01/11/18 01/10/18 10:28 05:11 21:38 POC Glucose 163 H 126 H 158 H 01/10/18 16:40 POC Glucose 162 H Phys Exam - Physical Examination HEENT: PERRLA, moist MMs, sclera anicteric, TM's clear, oral pharynx no lesions , 2+ tonsils Neck: no nodes, no JVD, supple, full ROM Respiratory: no wheezing, no rales, no rhonchi, wheezing present, clear to auscultation bilateral Cardiovascular: RRR, no significant murmur, no rub, gallop, irregular Gastrointestinal: soft, non-tender, no distention, positive bowel sounds Dx/Plan (1) Stroke Code(s): I63.9 - CEREBRAL INFARCTION, UNSPECIFIED Status: Acute (2) Diabetes type 2, controlled Code(s): E11.9 - TYPE 2 DIABETES MELLITUS WITHOUT COMPLICATIONS Status: Chronic (3) Hyperlipidemia Code(s): E78.5 - HYPERLIPIDEMIA, UNSPECIFIED Status: Chronic Comment: Start Lipitor 20mg HS (4) Hypertension Code(s): I10 - ESSENTIAL (PRIMARY) HYPERTENSION Status: Chronic (5) Pneumothorax Code(s): J93.9 - PNEUMOTHORAX, UNSPECIFIED Status: Acute (6) Pulmonary nodule Code(s): R91.1 - SOLITARY PULMONARY NODULE Status: Acute - Plan pt stable needs to go to snf -: will continue plavix * . Review of Systems - Review of Systems Respiratory: negative: Cough, Dry, Shortness of Breath, Hemoptysis, SOB with Excertion, Pleuritic Pain, Sputum, Wheezing Cardiovascular: negative: chest pain, palpitations, orthopnea, paroxysmal nocturnal dyspnea, edema, light headedness, other Gastrointestinal: negative: Nausea, Vomiting, Abdominal Pain, Diarrhea, Constipation, Melena, Hematochezia, Other Genitourinary: negative: Dysuria, Frequency, Incontinence, Hematuria, Retention , Other - Medications/Allergies Allergies/Adverse Reactions: Allergies Allergy/AdvReac Type Severity Reaction Status Date / Time Penicillins Allergy Verified 12/22/16 00:11 Medications: Current Medications Acetaminophen (Tylenol) 650 mg PO Q4H PRN PRN Reason: Headache/Fever or Pain Last Admin: 01/06/18 22:34 Dose: 650 mg Hydrocodone Bitart/Acetaminophen ([place] 5/325) 1 tab PO Q4H PRN PRN Reason: Moderate Pain (4-6) Last Admin: 01/09/18 09:33 Dose: 1 tab Hydrocodone Bitart/Acetaminophen ([place] 5/325) 2 tab PO Q4H PRN PRN Reason: Moderate to Severe Pain (6-10) Last Admin: 01/08/18 09:06 Dose: 2 tab Al Hydroxide/Mg Hydroxide (Maalox) 30 ml PO Q6H PRN PRN Reason: Heartburn or Indigestion Albuterol/Ipratropium (Duoneb) 3 ml IPPB [id number] [facility] Last Admin: 01/11/18 14:53 Dose: 3 ml Atorvastatin Calcium (Lipitor) 40 mg PO DAILY [facility] Last Admin: 01/11/18 09:23 Dose: 40 mg Benzonatate (Tessalon) 100 mg PO Q4H PRN PRN Reason: Cough Bisacodyl (Dulcolax) 10 mg PO DAILYPRN PRN PRN Reason: Constipation Calcium Carbonate (Tums) 1,000 mg PO Q4H PRN PRN Reason: Heartburn or Indigestion Carvedilol (Coreg) 12.5 mg PO BID [facility] Last Admin: 01/11/18 09:23 Dose: 12.5 mg Clopidogrel Bisulfate (Plavix) 75 mg PO DAILY [facility] Last Admin: 01/11/18 09:23 Dose: 75 mg Dextrose/Water (Dextrose 50%) 25 gm SLOW IVP PRN PRN PRN Reason: Hypoglycemia Enoxaparin Sodium (Lovenox) 40 mg SC 0900 [facility] Last Admin: 01/11/18 09:24 Dose: 40 mg Glucagon (Glucagon) 1 mg IM PRN PRN PRN Reason: Hypoglycemia Guaifenesin (Robitussin Sf) 200 mg PO Q4H PRN PRN Reason: Cough Hydralazine HCl (Apresoline) 10 mg SLOW IVP Q4H PRN PRN Reason: Systolic BP > 180 Last Admin: 01/09/18 08:13 Dose: 10 mg Dextrose/Water (D5w) 1,000 mls @ 0 mls/hr IV .Q0M PRN; As Directed PRN Reason: Hypoglycemia Insulin Human Lispro (Humalog) 0 units SC .MODERATE SLIDING SC PRN PRN Reason: Moderate Correctional Scale Last Admin: 01/11/18 10:57 Dose: 2 unit Insulin Human Lispro (Humalog) 0 units SC .BEDTIME SLIDING SC PRN PRN Reason: Bedtime Correctional Scale Labetalol HCl (Normodyne) 5 mg SLOW IVP Q4H PRN PRN Reason: sbp >190 Last Admin: 01/07/18 23:35 Dose: 5 mg Lisinopril (Zestril) 20 mg PO BID [facility] Last Admin: 01/11/18 09:23 Dose: 20 mg Loratadine (Claritin) 10 mg PO DAILYPRN PRN PRN Reason: Sinus Symptoms Nitroglycerin (Nitrostat) 0.4 mg SL Q5MIN PRN PRN Reason: Chest Pain Last Admin: 01/07/18 14:16 Dose: 0.4 mg Ondansetron HCl (Zofran) 4 mg IVP Q6H PRN PRN Reason: Nausea/Vomiting Senna (Senokot) 2 tab PO HSPRN PRN PRN Reason: Constipation Tamsulosin HCl (Flomax) 0.4 mg PO QPM [facility] Last Admin: 01/10/18 21:47 Dose: 0.4 mg Tramadol HCl (Ultram) 50 mg PO Q4H PRN PRN Reason: Moderate Pain (4-6) Last Admin: 01/09/18 17:26 Dose: 50 mg
--- NOTE | 2018-01-11 16:59 | PDOC.PN ---
- Subjective Encounter Start Date: 01/11/18 Encounter Start Time: 11:30 Subjective: pt up in bed no complains - Objective Vital Signs & Weight: Vital Signs (12 hours) Temp Pulse Pulse Resp BP BP BP 01/11/18 15:40 98.6 F 83 20 108/61 01/11/18 14:53 80 14 01/11/18 13:24 74 113/83 01/11/18 12:00 98.7 F 84 18 130/84 01/11/18 10:17 80 16 01/11/18 09:23 133/88 01/11/18 08:00 98.2 F 88 14 01/11/18 07:10 98.3 F 80 14 01/11/18 06:31 80 14 BP Pulse Ox 01/11/18 15:40 94 L 01/11/18 14:53 01/11/18 13:24 01/11/18 12:00 94 L 01/11/18 10:17 01/11/18 09:23 01/11/18 08:00 133/88 94 L 01/11/18 07:10 97 01/11/18 06:31 I&O: 01/10/18 01/11/18 01/12/18 06:59 06:59 06:59 Intake Total 740 610 300 Balance 740 610 300 Result Diagrams: 01/08/18 05:10 01/10/18 09:09 Additional Labs: Accuchecks 01/11/18 01/11/18 01/10/18 10:28 05:11 21:38 POC Glucose 163 H 126 H 158 H 01/10/18 16:40 POC Glucose 162 H Phys Exam - Physical Examination HEENT: PERRLA, moist MMs, sclera anicteric, TM's clear, oral pharynx no lesions , 2+ tonsils Neck: no nodes, no JVD, supple, full ROM Respiratory: no wheezing, no rales, no rhonchi, wheezing present, clear to auscultation bilateral Cardiovascular: RRR, no significant murmur, no rub, gallop, irregular Gastrointestinal: soft, non-tender, no distention, positive bowel sounds Dx/Plan (1) Stroke Code(s): I63.9 - CEREBRAL INFARCTION, UNSPECIFIED Status: Acute (2) Diabetes type 2, controlled Code(s): E11.9 - TYPE 2 DIABETES MELLITUS WITHOUT COMPLICATIONS Status: Chronic (3) Hyperlipidemia Code(s): E78.5 - HYPERLIPIDEMIA, UNSPECIFIED Status: Chronic Comment: Start Lipitor 20mg HS (4) Hypertension Code(s): I10 - ESSENTIAL (PRIMARY) HYPERTENSION Status: Chronic (5) Pneumothorax Code(s): J93.9 - PNEUMOTHORAX, UNSPECIFIED Status: Acute (6) Pulmonary nodule Code(s): R91.1 - SOLITARY PULMONARY NODULE Status: Acute - Plan pt's chest tube is out -: will continue his stroke meds -: discharge to snf * . Review of Systems - Review of Systems Respiratory: negative: Cough, Dry, Shortness of Breath, Hemoptysis, SOB with Excertion, Pleuritic Pain, Sputum, Wheezing Cardiovascular: negative: chest pain, palpitations, orthopnea, paroxysmal nocturnal dyspnea, edema, light headedness, other Gastrointestinal: negative: Nausea, Vomiting, Abdominal Pain, Diarrhea, Constipation, Melena, Hematochezia, Other Genitourinary: negative: Dysuria, Frequency, Incontinence, Hematuria, Retention , Other - Medications/Allergies Allergies/Adverse Reactions: Allergies Allergy/AdvReac Type Severity Reaction Status Date / Time Penicillins Allergy Verified 12/22/16 00:11 Medications: Current Medications Acetaminophen (Tylenol) 650 mg PO Q4H PRN PRN Reason: Headache/Fever or Pain Last Admin: 01/06/18 22:34 Dose: 650 mg Hydrocodone Bitart/Acetaminophen ([place] 5/325) 1 tab PO Q4H PRN PRN Reason: Moderate Pain (4-6) Last Admin: 01/09/18 09:33 Dose: 1 tab Hydrocodone Bitart/Acetaminophen ([place] 5/325) 2 tab PO Q4H PRN PRN Reason: Moderate to Severe Pain (6-10) Last Admin: 01/08/18 09:06 Dose: 2 tab Al Hydroxide/Mg Hydroxide (Maalox) 30 ml PO Q6H PRN PRN Reason: Heartburn or Indigestion Albuterol/Ipratropium (Duoneb) 3 ml IPPB [id number] [facility] Last Admin: 01/11/18 14:53 Dose: 3 ml Atorvastatin Calcium (Lipitor) 40 mg PO DAILY [facility] Last Admin: 01/11/18 09:23 Dose: 40 mg Benzonatate (Tessalon) 100 mg PO Q4H PRN PRN Reason: Cough Bisacodyl (Dulcolax) 10 mg PO DAILYPRN PRN PRN Reason: Constipation Calcium Carbonate (Tums) 1,000 mg PO Q4H PRN PRN Reason: Heartburn or Indigestion Carvedilol (Coreg) 12.5 mg PO BID [facility] Last Admin: 01/11/18 09:23 Dose: 12.5 mg Clopidogrel Bisulfate (Plavix) 75 mg PO DAILY [facility] Last Admin: 01/11/18 09:23 Dose: 75 mg Dextrose/Water (Dextrose 50%) 25 gm SLOW IVP PRN PRN PRN Reason: Hypoglycemia Enoxaparin Sodium (Lovenox) 40 mg SC 09 [facility] Last Admin: 01/11/18 09:24 Dose: 40 mg Glucagon (Glucagon) 1 mg IM PRN PRN PRN Reason: Hypoglycemia Guaifenesin (Robitussin Sf) 200 mg PO Q4H PRN PRN Reason: Cough Hydralazine HCl (Apresoline) 10 mg SLOW IVP Q4H PRN PRN Reason: Systolic BP > 180 Last Admin: 01/09/18 08:13 Dose: 10 mg Dextrose/Water (D5w) 1,000 mls @ 0 mls/hr IV .Q0M PRN; As Directed PRN Reason: Hypoglycemia Insulin Human Lispro (Humalog) 0 units SC .MODERATE SLIDING SC PRN PRN Reason: Moderate Correctional Scale Last Admin: 01/11/18 10:57 Dose: 2 unit Insulin Human Lispro (Humalog) 0 units SC .BEDTIME SLIDING SC PRN PRN Reason: Bedtime Correctional Scale Labetalol HCl (Normodyne) 5 mg SLOW IVP Q4H PRN PRN Reason: sbp >190 Last Admin: 01/07/18 23:35 Dose: 5 mg Lisinopril (Zestril) 20 mg PO BID [facility] Last Admin: 01/11/18 09:23 Dose: 20 mg Loratadine (Claritin) 10 mg PO DAILYPRN PRN PRN Reason: Sinus Symptoms Nitroglycerin (Nitrostat) 0.4 mg SL Q5MIN PRN PRN Reason: Chest Pain Last Admin: 01/07/18 14:16 Dose: 0.4 mg Ondansetron HCl (Zofran) 4 mg IVP Q6H PRN PRN Reason: Nausea/Vomiting Senna (Senokot) 2 tab PO HSPRN PRN PRN Reason: Constipation Tamsulosin HCl (Flomax) 0.4 mg PO QPM [facility] Last Admin: 01/10/18 21:47 Dose: 0.4 mg Tramadol HCl (Ultram) 50 mg PO Q4H PRN PRN Reason: Moderate Pain (4-6) Last Admin: 01/09/18 17:26 Dose: 50 mg
[2018-01-11] MEDS: Tamsulosin HCl 0.4 MG CAP PO SCH (20:36)
[2018-01-12] MEDS: Enoxaparin Sodium 40 MG/0.4 ML SYRINGE SC SCH (09:07)
[2018-01-12] MEDS: Lisinopril 20 MG TAB PO SCH ×2 (09:07→21:21)
[2018-01-12] MEDS: Carvedilol 25 MG TAB PO SCH ×2 (09:08→21:21)
[2018-01-12] MEDS: Clopidogrel Bisulfate 75 MG TAB PO SCH (09:08)
[2018-01-12] MEDS: HumaLOG 300 UNITS/3 ML VIAL SC PRN (12:37)
--- NOTE | 2018-01-12 21:14 | PDOC.PN ---
- Subjective Encounter Start Date: 01/12/18 Encounter Start Time: 10:30 Subjective: pt up in bed no complains - Objective Vital Signs & Weight: Vital Signs (12 hours) Temp Pulse Pulse Resp BP BP Pulse Ox 01/12/18 18:58 79 14 97 01/12/18 15:52 97.7 F 72 20 137/98 H 95 01/12/18 15:50 84 16 01/12/18 12:00 98.5 F 84 16 133/80 96 01/12/18 11:46 78 12 01/12/18 11:43 73 138/82 I&O: 01/11/18 01/12/18 01/13/18 06:59 06:59 06:59 Intake Total 610 730 660 Output Total 250 Balance 610 480 660 Result Diagrams: 01/08/18 05:10 01/10/18 09:09 Additional Labs: Accuchecks 01/12/18 01/12/18 01/12/18 16:56 10:30 05:38 POC Glucose 114 H 187 H 133 H Phys Exam - Physical Examination HEENT: PERRLA, moist MMs, sclera anicteric, TM's clear, oral pharynx no lesions , 2+ tonsils Neck: no nodes, no JVD, supple, full ROM Respiratory: no wheezing, no rales, no rhonchi, wheezing present, clear to auscultation bilateral Cardiovascular: RRR, no significant murmur, no rub, gallop, irregular Gastrointestinal: soft, non-tender, no distention, positive bowel sounds Musculoskeletal: no edema, pulses present, edema present Dx/Plan (1) Stroke Code(s): I63.9 - CEREBRAL INFARCTION, UNSPECIFIED Status: Acute (2) Diabetes type 2, controlled Code(s): E11.9 - TYPE 2 DIABETES MELLITUS WITHOUT COMPLICATIONS Status: Chronic (3) Hyperlipidemia Code(s): E78.5 - HYPERLIPIDEMIA, UNSPECIFIED Status: Chronic Comment: Start Lipitor 20mg HS (4) Hypertension Code(s): I10 - ESSENTIAL (PRIMARY) HYPERTENSION Status: Chronic (5) Pneumothorax Code(s): J93.9 - PNEUMOTHORAX, UNSPECIFIED Status: Acute (6) Pulmonary nodule Code(s): R91.1 - SOLITARY PULMONARY NODULE Status: Acute - Plan waiting on placement. pt's son is afraid to take him home -: medically pt is stable. * . Review of Systems - Review of Systems Respiratory: negative: Cough, Dry, Shortness of Breath, Hemoptysis, SOB with Excertion, Pleuritic Pain, Sputum, Wheezing Cardiovascular: negative: chest pain, palpitations, orthopnea, paroxysmal nocturnal dyspnea, edema, light headedness, other Gastrointestinal: negative: Nausea, Vomiting, Abdominal Pain, Diarrhea, Constipation, Melena, Hematochezia, Other - Medications/Allergies Allergies/Adverse Reactions: Allergies Allergy/AdvReac Type Severity Reaction Status Date / Time Penicillins Allergy Verified 12/22/16 00:11 Medications: Current Medications Acetaminophen (Tylenol) 650 mg PO Q4H PRN PRN Reason: Headache/Fever or Pain Last Admin: 01/06/18 22:34 Dose: 650 mg Hydrocodone Bitart/Acetaminophen ([place] 5/325) 1 tab PO Q4H PRN PRN Reason: Moderate Pain (4-6) Last Admin: 01/09/18 09:33 Dose: 1 tab Hydrocodone Bitart/Acetaminophen ([place] 5/325) 2 tab PO Q4H PRN PRN Reason: Moderate to Severe Pain (6-10) Last Admin: 01/08/18 09:06 Dose: 2 tab Al Hydroxide/Mg Hydroxide (Maalox) 30 ml PO Q6H PRN PRN Reason: Heartburn or Indigestion Albuterol/Ipratropium (Duoneb) 3 ml IPPB [id number] [facility] Last Admin: 01/12/18 18:58 Dose: 3 ml Atorvastatin Calcium (Lipitor) 40 mg PO HS [facility] Benzonatate (Tessalon) 100 mg PO Q4H PRN PRN Reason: Cough Bisacodyl (Dulcolax) 10 mg PO DAILYPRN PRN PRN Reason: Constipation Calcium Carbonate (Tums) 1,000 mg PO Q4H PRN PRN Reason: Heartburn or Indigestion Carvedilol (Coreg) 12.5 mg PO BID [facility] Last Admin: 01/12/18 09:08 Dose: 12.5 mg Clopidogrel Bisulfate (Plavix) 75 mg PO DAILY [facility] Last Admin: 01/12/18 09:08 Dose: 75 mg Dextrose/Water (Dextrose 50%) 25 gm SLOW IVP PRN PRN PRN Reason: Hypoglycemia Enoxaparin Sodium (Lovenox) 40 mg SC 0900 [facility] Last Admin: 01/12/18 09:07 Dose: 40 mg Glucagon (Glucagon) 1 mg IM PRN PRN PRN Reason: Hypoglycemia Guaifenesin (Robitussin Sf) 200 mg PO Q4H PRN PRN Reason: Cough Hydralazine HCl (Apresoline) 10 mg SLOW IVP Q4H PRN PRN Reason: Systolic BP > 180 Last Admin: 01/09/18 08:13 Dose: 10 mg Dextrose/Water (D5w) 1,000 mls @ 0 mls/hr IV .Q0M PRN; As Directed PRN Reason: Hypoglycemia Insulin Human Lispro (Humalog) 0 units SC .MODERATE SLIDING SC PRN PRN Reason: Moderate Correctional Scale Last Admin: 01/12/18 12:37 Dose: 2 unit Insulin Human Lispro (Humalog) 0 units SC .BEDTIME SLIDING SC PRN PRN Reason: Bedtime Correctional Scale Labetalol HCl (Normodyne) 5 mg SLOW IVP Q4H PRN PRN Reason: sbp >190 Last Admin: 01/07/18 23:35 Dose: 5 mg Lisinopril (Zestril) 20 mg PO BID [facility] Last Admin: 01/12/18 09:07 Dose: 20 mg Loratadine (Claritin) 10 mg PO DAILYPRN PRN PRN Reason: Sinus Symptoms Nitroglycerin (Nitrostat) 0.4 mg SL Q5MIN PRN PRN Reason: Chest Pain Last Admin: 01/07/18 14:16 Dose: 0.4 mg Ondansetron HCl (Zofran) 4 mg IVP Q6H PRN PRN Reason: Nausea/Vomiting Senna (Senokot) 2 tab PO HSPRN PRN PRN Reason: Constipation Tamsulosin HCl (Flomax) 0.4 mg PO QPM [facility] Last Admin: 01/11/18 20:36 Dose: 0.4 mg Tramadol HCl (Ultram) 50 mg PO Q4H PRN PRN Reason: Moderate Pain (4-6) Last Admin: 01/09/18 17:26 Dose: 50 mg
[2018-01-12] MEDS: Tamsulosin HCl 0.4 MG CAP PO SCH (21:21)
[2018-01-12] MEDS: Atorvastatin Calcium 40 MG TAB PO SCH (21:21)
[2018-01-13] MEDS: Carvedilol 25 MG TAB PO SCH ×2 (08:28→20:25)
[2018-01-13] MEDS: Lisinopril 20 MG TAB PO SCH ×2 (08:30→20:25)
[2018-01-13] MEDS: Clopidogrel Bisulfate 75 MG TAB PO SCH (08:30)
[2018-01-13] MEDS: Enoxaparin Sodium 40 MG/0.4 ML SYRINGE SC SCH (08:30)
[2018-01-13] MEDS ORDERED: hydrALAZINE 25 MG TAB PO SCH ×2 (10:00→21:00)
[2018-01-13] MEDS: HumaLOG 300 UNITS/3 ML VIAL SC PRN (10:51)
--- NOTE | 2018-01-13 14:42 | PDOC.PN ---
- Subjective Encounter Start Date: 01/13/18 Encounter Start Time: 11:30 Subjective: pt up in bed no complains - Objective Vital Signs & Weight: Vital Signs (12 hours) Temp Pulse Resp BP BP BP Pulse Ox 01/13/18 12:00 97.6 F 75 16 120/82 98 01/13/18 11:16 78 16 96 01/13/18 10:43 81 118/100 H 01/13/18 08:30 98 F 82 16 159/109 H 96 01/13/18 07:31 98 F 82 16 159/103 H 96 01/13/18 03:55 97.8 F 75 16 113/93 H 94 L I&O: 01/12/18 01/13/18 01/14/18 06:59 06:59 06:59 Intake Total 730 810 Output Total 250 Balance 480 810 Result Diagrams: 01/08/18 05:10 01/10/18 09:09 Additional Labs: Accuchecks 01/13/18 01/13/18 01/12/18 10:45 05:49 21:20 POC Glucose 229 H 137 H 132 H 01/12/18 16:56 POC Glucose 114 H Phys Exam - Physical Examination Neck: no nodes, no JVD, supple, full ROM Respiratory: no wheezing, no rales, no rhonchi, wheezing present, clear to auscultation bilateral Cardiovascular: RRR, no significant murmur, no rub, gallop, irregular Gastrointestinal: soft, non-tender, no distention, positive bowel sounds Dx/Plan (1) Stroke Code(s): I63.9 - CEREBRAL INFARCTION, UNSPECIFIED Status: Acute (2) Diabetes type 2, controlled Code(s): E11.9 - TYPE 2 DIABETES MELLITUS WITHOUT COMPLICATIONS Status: Chronic (3) Hyperlipidemia Code(s): E78.5 - HYPERLIPIDEMIA, UNSPECIFIED Status: Chronic Comment: Start Lipitor 20mg HS (4) Hypertension Code(s): I10 - ESSENTIAL (PRIMARY) HYPERTENSION Status: Chronic (5) Pneumothorax Code(s): J93.9 - PNEUMOTHORAX, UNSPECIFIED Status: Acute (6) Pulmonary nodule Code(s): R91.1 - SOLITARY PULMONARY NODULE Status: Acute - Plan pt medically doing well -: will check labs today. waiting placement * . Review of Systems - Review of Systems ENT: negative: Ear Pain, Ear Discharge, Nose Pain, Nose Discharge, Nose Congestion, Mouth Pain, Mouth Swelling, Throat Pain, Throat Swelling, Other Respiratory: negative: Cough, Dry, Shortness of Breath, Hemoptysis, SOB with Excertion, Pleuritic Pain, Sputum, Wheezing Cardiovascular: negative: chest pain, palpitations, orthopnea, paroxysmal nocturnal dyspnea, edema, light headedness, other Gastrointestinal: negative: Nausea, Vomiting, Abdominal Pain, Diarrhea, Constipation, Melena, Hematochezia, Other Genitourinary: negative: Dysuria, Frequency, Incontinence, Hematuria, Retention , Other - Medications/Allergies Allergies/Adverse Reactions: Allergies Allergy/AdvReac Type Severity Reaction Status Date / Time Penicillins Allergy Verified 12/22/16 00:11 Medications: Current Medications Acetaminophen (Tylenol) 650 mg PO Q4H PRN PRN Reason: Headache/Fever or Pain Last Admin: 01/06/18 22:34 Dose: 650 mg Hydrocodone Bitart/Acetaminophen ([place] 5/325) 1 tab PO Q4H PRN PRN Reason: Moderate Pain (4-6) Last Admin: 01/09/18 09:33 Dose: 1 tab Hydrocodone Bitart/Acetaminophen ([place] 5/325) 2 tab PO Q4H PRN PRN Reason: Moderate to Severe Pain (6-10) Last Admin: 01/08/18 09:06 Dose: 2 tab Al Hydroxide/Mg Hydroxide (Maalox) 30 ml PO Q6H PRN PRN Reason: Heartburn or Indigestion Albuterol/Ipratropium (Duoneb) 3 ml IPPB [id number] [facility] Last Admin: 01/13/18 11:16 Dose: 3 ml Atorvastatin Calcium (Lipitor) 40 mg PO HS [facility] Last Admin: 01/12/18 21:21 Dose: 40 mg Benzonatate (Tessalon) 100 mg PO Q4H PRN PRN Reason: Cough Bisacodyl (Dulcolax) 10 mg PO DAILYPRN PRN PRN Reason: Constipation Calcium Carbonate (Tums) 1,000 mg PO Q4H PRN PRN Reason: Heartburn or Indigestion Carvedilol (Coreg) 12.5 mg PO BID [facility] Last Admin: 01/13/18 08:28 Dose: 12.5 mg Clopidogrel Bisulfate (Plavix) 75 mg PO DAILY [facility] Last Admin: 01/13/18 08:30 Dose: 75 mg Dextrose/Water (Dextrose 50%) 25 gm SLOW IVP PRN PRN PRN Reason: Hypoglycemia Enoxaparin Sodium (Lovenox) 40 mg SC 0900 [facility] Last Admin: 01/13/18 08:30 Dose: 40 mg Glucagon (Glucagon) 1 mg IM PRN PRN PRN Reason: Hypoglycemia Guaifenesin (Robitussin Sf) 200 mg PO Q4H PRN PRN Reason: Cough Hydralazine HCl (Apresoline) 10 mg SLOW IVP Q4H PRN PRN Reason: Systolic BP > 180 Last Admin: 01/09/18 08:13 Dose: 10 mg Hydralazine HCl (Apresoline) 25 mg PO BID [facility] Dextrose/Water (D5w) 1,000 mls @ 0 mls/hr IV .Q0M PRN; As Directed PRN Reason: Hypoglycemia Insulin Human Lispro (Humalog) 0 units SC .MODERATE SLIDING SC PRN PRN Reason: Moderate Correctional Scale Last Admin: 01/13/18 10:51 Dose: 4 unit Insulin Human Lispro (Humalog) 0 units SC .BEDTIME SLIDING SC PRN PRN Reason: Bedtime Correctional Scale Labetalol HCl (Normodyne) 5 mg SLOW IVP Q4H PRN PRN Reason: sbp >190 Last Admin: 01/07/18 23:35 Dose: 5 mg Lisinopril (Zestril) 20 mg PO BID [facility] Last Admin: 01/13/18 08:30 Dose: 20 mg Loratadine (Claritin) 10 mg PO DAILYPRN PRN PRN Reason: Sinus Symptoms Nitroglycerin (Nitrostat) 0.4 mg SL Q5MIN PRN PRN Reason: Chest Pain Last Admin: 01/07/18 14:16 Dose: 0.4 mg Ondansetron HCl (Zofran) 4 mg IVP Q6H PRN PRN Reason: Nausea/Vomiting Senna (Senokot) 2 tab PO HSPRN PRN PRN Reason: Constipation Tamsulosin HCl (Flomax) 0.4 mg PO QPM [facility] Last Admin: 01/12/18 21:21 Dose: 0.4 mg Tramadol HCl (Ultram) 50 mg PO Q4H PRN PRN Reason: Moderate Pain (4-6) Last Admin: 01/09/18 17:26 Dose: 50 mg
[2018-01-13 15:26] LABS: Anion Gap 13 mmol/L (10-20); BUN (Urea Nitrogen) 7 mg/dL (8.4-25.7); Calc. Creatinine Clearance 111 mL/min (70-130); Calcium 8.6 mg/dL (7.8-10.44); Carbon Dioxide 23 mmol/L (23-31); Chloride 102 mmol/L (98-107); Estimated GFR-MDRD Greater than 90; Glucose 135 mg/dL (80-115); Magnesium 1.2 mg/dL (1.6-2.6); Potassium 3.4 mmol/L (3.5-5.1); Sodium 135 mmol/L (136-145)
[2018-01-13] MEDS: Tamsulosin HCl 0.4 MG CAP PO SCH (20:25)
[2018-01-13] MEDS: Atorvastatin Calcium 40 MG TAB PO SCH (20:25)
[2018-01-13] MEDS: hydrALAZINE 25 MG TAB PO SCH (20:26)
[2018-01-14] MEDS: Lisinopril 20 MG TAB PO SCH ×2 (08:18→21:36)
[2018-01-14] MEDS: Carvedilol 25 MG TAB PO SCH ×2 (08:18→21:35)
[2018-01-14] MEDS: Enoxaparin Sodium 40 MG/0.4 ML SYRINGE SC SCH (08:19)
[2018-01-14] MEDS: Clopidogrel Bisulfate 75 MG TAB PO SCH (08:19)
[2018-01-14] MEDS: hydrALAZINE 25 MG TAB PO SCH ×2 (08:19→21:36)
[2018-01-14 09:03] LABS: #Eosinphils 0.2 thou/uL (0.0-0.7); #Lymphocytes 1.4 thou/uL (1.20-3.40); #Monocytes 0.5 thou/uL (0.11-0.59); #Neutrophils 5.6 thou/uL (1.40-6.50); %Basophils 0.5 % (0.0-1.0); %Lymphocytes 18.4 % (21.0-51.0); %Monocytes 6.3 % (0.0-10.0); %Neutrophils 72.7 % (42.0-75.0); Hemoglobin 14.6 g/dL (14.0-18.0); Mean Corpuscular Hemoglobin 30.6 pg (27.0-31.0); Mean Corpuscular Volume 89.9 fL (78.0-98.0); Mean Platelet Volume 6.4 fL (7.4-10.4); Platelet Count 321 thou/uL (130-400); RBC Distribution Width 13.9 % (11.5-14.5); Red Blood Cell (RBC) Count 4.78 mill/uL (4.70-6.10); White Blood Cell (WBC) Count 7.6 thou/uL (4.8-10.8)
[2018-01-14 09:22] LABS: Anion Gap 15 mmol/L (10-20); BUN (Urea Nitrogen) 6 mg/dL (8.4-25.7); Calc. Creatinine Clearance 98 mL/min (70-130); Calcium 8.8 mg/dL (7.8-10.44); Carbon Dioxide 24 mmol/L (23-31); Chloride 100 mmol/L (98-107); Estimated GFR-MDRD Greater than 90; Glucose 231 mg/dL (80-115); Magnesium 1.4 mg/dL (1.6-2.6); Potassium 3.2 mmol/L (3.5-5.1); Sodium 136 mmol/L (136-145)
[2018-01-14] MEDS ORDERED: Potassium Chloride 20 MEQ TAB PO SCH ×2 (10:00→17:00)
[2018-01-14] MEDS ORDERED: Magnesium Sulfate 4 GM in Sodium Chloride 0.9% 250 ML 250 ML IVPB SCH (10:15)
[2018-01-14] MEDS: HumaLOG 300 UNITS/3 ML VIAL SC PRN ×2 (10:43→17:43)
--- NOTE | 2018-01-14 13:14 | PDOC.PN ---
- Subjective Encounter Start Date: 01/14/18 Encounter Start Time: 07:10 -: old records requested/rev Patient seen and examined. No new complaints. No overnight events - Objective MAR Reviewed: Yes Vital Signs & Weight: Vital Signs (12 hours) Temp Pulse Resp BP BP Pulse Ox 01/14/18 11:34 97.4 F L 71 16 111/66 96 01/14/18 11:21 80 20 01/14/18 08:20 98.0 F 73 16 93 L 01/14/18 08:19 73 141/93 H 01/14/18 08:18 141/93 H 01/14/18 07:30 98.0 F 73 16 141/93 H 93 L 01/14/18 07:04 81 20 95 01/14/18 04:00 97.9 F 81 18 94/63 94 L I&O: 01/13/18 01/14/18 01/15/18 06:59 06:59 06:59 Intake Total 810 450 Balance 810 450 Result Diagrams: 01/14/18 08:53 01/14/18 08:53 Additional Labs: Accuchecks 01/14/18 01/14/18 01/13/18 10:23 05:17 20:15 POC Glucose 205 H 135 H 194 H 01/13/18 16:51 POC Glucose 124 H Radiology Reviewed by me: Yes EKG Reviewed by me: Yes Phys Exam - Physical Examination Constitutional: NAD HEENT: PERRLA, moist MMs, sclera anicteric Neck: no JVD, supple Respiratory: no wheezing, no rales, no rhonchi Cardiovascular: RRR, no significant murmur, no rub Gastrointestinal: soft, non-tender, no distention, positive bowel sounds Musculoskeletal: no edema, pulses present Neurological: non-focal, normal sensation, moves all 4 limbs Lymphatic: no nodes Psychiatric: normal affect Skin: no rash, normal turgor Dx/Plan (1) Hypokalemia Code(s): E87.6 - HYPOKALEMIA Status: Acute (2) Hypomagnesemia Code(s): E83.42 - HYPOMAGNESEMIA Status: Acute (3) Pneumothorax Code(s): J93.9 - PNEUMOTHORAX, UNSPECIFIED Status: Acute (4) Pulmonary nodule Code(s): R91.1 - SOLITARY PULMONARY NODULE Status: Acute (5) Stroke Code(s): I63.9 - CEREBRAL INFARCTION, UNSPECIFIED Status: Acute (6) BPH (benign prostatic hyperplasia) Code(s): N40.0 - BENIGN PROSTATIC HYPERPLASIA WITHOUT LOWER URINRY TRACT SYMP Status: Chronic (7) Diabetes type 2, controlled Code(s): E11.9 - TYPE 2 DIABETES MELLITUS WITHOUT COMPLICATIONS Status: Chronic (8) Dyslipidemia Code(s): E78.5 - HYPERLIPIDEMIA, UNSPECIFIED Status: Chronic (9) Hypertension Code(s): I10 - ESSENTIAL (PRIMARY) HYPERTENSION Status: Chronic - Plan cont current plan of care, PT/OT, licensed master social worker * medication reviewed as below * symptomatic treatment * replace magnesium and potassium * await placement. Review of Systems - Review of Systems Eyes: negative: Pain, Vision Change, Conjunctivae Inflammation, Eyelid Inflammation, Redness, Other ENT: negative: Ear Pain, Ear Discharge, Nose Pain, Nose Discharge, Nose Congestion, Mouth Pain, Mouth Swelling, Throat Pain, Throat Swelling, Other Respiratory: negative: Cough, Dry, Shortness of Breath, Hemoptysis, SOB with Excertion, Pleuritic Pain, Sputum, Wheezing Cardiovascular: negative: chest pain, palpitations, orthopnea, paroxysmal nocturnal dyspnea, edema, light headedness, other Gastrointestinal: negative: Nausea, Vomiting, Abdominal Pain, Diarrhea, Constipation, Melena, Hematochezia, Other Genitourinary: negative: Dysuria, Frequency, Incontinence, Hematuria, Retention , Other Musculoskeletal: negative: Neck Pain, Shoulder Pain, Arm Pain, Back Pain, Hand Pain, Leg Pain, Foot Pain, Other Skin: negative: Rash, Lesions, Kvng, Bruising, Other - Medications/Allergies Allergies/Adverse Reactions: Allergies Allergy/AdvReac Type Severity Reaction Status Date / Time Penicillins Allergy Verified 12/22/16 00:11 Medications: Current Medications Acetaminophen (Tylenol) 650 mg PO Q4H PRN PRN Reason: Headache/Fever or Pain Last Admin: 01/06/18 22:34 Dose: 650 mg Hydrocodone Bitart/Acetaminophen ([place] 5/325) 1 tab PO Q4H PRN PRN Reason: Moderate Pain (4-6) Last Admin: 01/09/18 09:33 Dose: 1 tab Hydrocodone Bitart/Acetaminophen ([place] 5/325) 2 tab PO Q4H PRN PRN Reason: Moderate to Severe Pain (6-10) Last Admin: 01/08/18 09:06 Dose: 2 tab Al Hydroxide/Mg Hydroxide (Maalox) 30 ml PO Q6H PRN PRN Reason: Heartburn or Indigestion Albuterol/Ipratropium (Duoneb) 3 ml IPPB [id number] [facility] Last Admin: 01/14/18 11:21 Dose: 3 ml Atorvastatin Calcium (Lipitor) 40 mg PO HS [facility] Last Admin: 01/13/18 20:25 Dose: 40 mg Benzonatate (Tessalon) 100 mg PO Q4H PRN PRN Reason: Cough Last Admin: 01/14/18 10:41 Dose: 100 mg Bisacodyl (Dulcolax) 10 mg PO DAILYPRN PRN PRN Reason: Constipation Calcium Carbonate (Tums) 1,000 mg PO Q4H PRN PRN Reason: Heartburn or Indigestion Carvedilol (Coreg) 12.5 mg PO BID [facility] Last Admin: 01/14/18 08:18 Dose: 12.5 mg Clopidogrel Bisulfate (Plavix) 75 mg PO DAILY [facility] Last Admin: 01/14/18 08:19 Dose: 75 mg Dextrose/Water (Dextrose 50%) 25 gm SLOW IVP PRN PRN PRN Reason: Hypoglycemia Enoxaparin Sodium (Lovenox) 40 mg SC 0900 [facility] Last Admin: 01/14/18 08:19 Dose: 40 mg Glucagon (Glucagon) 1 mg IM PRN PRN PRN Reason: Hypoglycemia Guaifenesin (Robitussin Sf) 200 mg PO Q4H PRN PRN Reason: Cough Last Admin: 01/14/18 10:42 Dose: 200 mg Hydralazine HCl (Apresoline) 10 mg SLOW IVP Q4H PRN PRN Reason: Systolic BP > 180 Last Admin: 01/09/18 08:13 Dose: 10 mg Hydralazine HCl (Apresoline) 25 mg PO BID [facility] Last Admin: 01/14/18 08:19 Dose: 25 mg Dextrose/Water (D5w) 1,000 mls @ 0 mls/hr IV .Q0M PRN; As Directed PRN Reason: Hypoglycemia Insulin Human Lispro (Humalog) 0 units SC .MODERATE SLIDING SC PRN PRN Reason: Moderate Correctional Scale Last Admin: 01/14/18 10:43 Dose: 4 unit Insulin Human Lispro (Humalog) 0 units SC .BEDTIME SLIDING SC PRN PRN Reason: Bedtime Correctional Scale Labetalol HCl (Normodyne) 5 mg SLOW IVP Q4H PRN PRN Reason: sbp >190 Last Admin: 01/07/18 23:35 Dose: 5 mg Lisinopril (Zestril) 20 mg PO BID [facility] Last Admin: 01/14/18 08:18 Dose: 20 mg Loratadine (Claritin) 10 mg PO DAILYPRN PRN PRN Reason: Sinus Symptoms Nitroglycerin (Nitrostat) 0.4 mg SL Q5MIN PRN PRN Reason: Chest Pain Last Admin: 01/07/18 14:16 Dose: 0.4 mg Ondansetron HCl (Zofran) 4 mg IVP Q6H PRN PRN Reason: Nausea/Vomiting Potassium Chloride (K-Dur) 40 meq PO BID-[facility] Stop: 01/14/18 19:00 Senna (Senokot) 2 tab PO HSPRN PRN PRN Reason: Constipation Tamsulosin HCl (Flomax) 0.4 mg PO QPM [facility] Last Admin: 01/13/18 20:25 Dose: 0.4 mg Tramadol HCl (Ultram) 50 mg PO Q4H PRN PRN Reason: Moderate Pain (4-6) Last Admin: 01/09/18 17:26 Dose: 50 mg
[2018-01-14] MEDS: Tamsulosin HCl 0.4 MG CAP PO SCH (21:35)
[2018-01-14] MEDS: Atorvastatin Calcium 40 MG TAB PO SCH (21:35)
[2018-01-15 07:49] LABS: Anion Gap 15 mmol/L (10-20); BUN (Urea Nitrogen) 6 mg/dL (8.4-25.7); Calc. Creatinine Clearance 120 mL/min (70-130); Calcium 8.3 mg/dL (7.8-10.44); Carbon Dioxide 19 mmol/L (23-31); Chloride 106 mmol/L (98-107); Estimated GFR-MDRD Greater than 90; Glucose 146 mg/dL (80-115); Magnesium 2.2 mg/dL (1.6-2.6); Sodium 136 mmol/L (136-145)
[2018-01-15] MEDS: hydrALAZINE 25 MG TAB PO SCH ×2 (09:16→22:16)
[2018-01-15] MEDS: Carvedilol 25 MG TAB PO SCH ×2 (09:16→22:17)
[2018-01-15] MEDS: Enoxaparin Sodium 40 MG/0.4 ML SYRINGE SC SCH (09:16)
[2018-01-15] MEDS: Lisinopril 20 MG TAB PO SCH ×2 (09:16→22:16)
[2018-01-15] MEDS: Clopidogrel Bisulfate 75 MG TAB PO SCH (09:17)
--- NOTE | 2018-01-15 11:19 | PDOC.PN ---
- Subjective Encounter Start Date: 01/15/18 Encounter Start Time: 07:10 Patient seen and examined. No new complaints. No overnight events - Objective MAR Reviewed: Yes Vital Signs & Weight: Vital Signs (12 hours) Temp Pulse Resp BP BP BP Pulse Ox 01/15/18 11:11 68 20 97 01/15/18 09:16 71 123/74 01/15/18 07:42 97.9 F 71 16 123/74 93 L 01/15/18 03:06 97.9 F 61 20 119/78 96 01/14/18 23:43 98.1 F 77 20 105/63 95 I&O: 01/14/18 01/15/18 01/16/18 06:59 06:59 06:59 Intake Total 450 100 Balance 450 100 Result Diagrams: 01/14/18 08:53 01/15/18 06:54 Additional Labs: Accuchecks 01/15/18 01/15/18 01/14/18 10:28 05:30 21:41 POC Glucose 237 H 134 H 182 H 01/14/18 16:55 POC Glucose 186 H EKG Reviewed by me: Yes Phys Exam - Physical Examination Constitutional: NAD HEENT: PERRLA, moist MMs, sclera anicteric Neck: no JVD, supple Respiratory: no wheezing, no rales, no rhonchi Cardiovascular: RRR, no significant murmur, no rub Gastrointestinal: soft, non-tender, no distention, positive bowel sounds Musculoskeletal: no edema, pulses present Neurological: non-focal, normal sensation Lymphatic: no nodes Psychiatric: normal affect Skin: no rash, normal turgor Dx/Plan (1) Hypokalemia Code(s): E87.6 - HYPOKALEMIA Status: Resolved (2) Hypomagnesemia Code(s): E83.42 - HYPOMAGNESEMIA Status: Resolved (3) Pneumothorax Code(s): J93.9 - PNEUMOTHORAX, UNSPECIFIED Status: Resolved (4) Pulmonary nodule Code(s): R91.1 - SOLITARY PULMONARY NODULE Status: Acute (5) Stroke Code(s): I63.9 - CEREBRAL INFARCTION, UNSPECIFIED Status: Acute (6) BPH (benign prostatic hyperplasia) Code(s): N40.0 - BENIGN PROSTATIC HYPERPLASIA WITHOUT LOWER URINRY TRACT SYMP Status: Chronic (7) Diabetes type 2, controlled Code(s): E11.9 - TYPE 2 DIABETES MELLITUS WITHOUT COMPLICATIONS Status: Chronic (8) Dyslipidemia Code(s): E78.5 - HYPERLIPIDEMIA, UNSPECIFIED Status: Chronic (9) Hypertension Code(s): I10 - ESSENTIAL (PRIMARY) HYPERTENSION Status: Chronic - Plan cont current plan of care, PT/OT, social media coordinator * medication reviewed as below * symptomatic treatment * await insurance approval for snu placement * medically stable with current treatment. Review of Systems - Review of Systems Eyes: negative: Pain, Vision Change, Conjunctivae Inflammation, Eyelid Inflammation, Redness, Other ENT: negative: Ear Pain, Ear Discharge, Nose Pain, Nose Discharge, Nose Congestion, Mouth Pain, Mouth Swelling, Throat Pain, Throat Swelling, Other Respiratory: negative: Cough, Dry, Shortness of Breath, Hemoptysis, SOB with Excertion, Pleuritic Pain, Sputum, Wheezing Cardiovascular: negative: chest pain, palpitations, orthopnea, paroxysmal nocturnal dyspnea, edema, light headedness, other Gastrointestinal: negative: Nausea, Vomiting, Abdominal Pain, Diarrhea, Constipation, Melena, Hematochezia, Other Genitourinary: negative: Dysuria, Frequency, Incontinence, Hematuria, Retention , Other Musculoskeletal: negative: Neck Pain, Shoulder Pain, Arm Pain, Back Pain, Hand Pain, Leg Pain, Foot Pain, Other Skin: negative: Rash, Lesions, Kvng, Bruising, Other - Medications/Allergies Allergies/Adverse Reactions: Allergies Allergy/AdvReac Type Severity Reaction Status Date / Time Penicillins Allergy Verified 12/22/16 00:11 Medications: Current Medications Acetaminophen (Tylenol) 650 mg PO Q4H PRN PRN Reason: Headache/Fever or Pain Last Admin: 01/06/18 22:34 Dose: 650 mg Hydrocodone Bitart/Acetaminophen ([place] 5/325) 1 tab PO Q4H PRN PRN Reason: Moderate Pain (4-6) Last Admin: 01/09/18 09:33 Dose: 1 tab Hydrocodone Bitart/Acetaminophen ([place] 5/325) 2 tab PO Q4H PRN PRN Reason: Moderate to Severe Pain (6-10) Last Admin: 01/08/18 09:06 Dose: 2 tab Al Hydroxide/Mg Hydroxide (Maalox) 30 ml PO Q6H PRN PRN Reason: Heartburn or Indigestion Albuterol/Ipratropium (Duoneb) 3 ml IPPB [id number] [facility] Last Admin: 01/15/18 11:11 Dose: 3 ml Atorvastatin Calcium (Lipitor) 40 mg PO HS [facility] Last Admin: 01/14/18 21:35 Dose: 40 mg Benzonatate (Tessalon) 100 mg PO Q4H PRN PRN Reason: Cough Last Admin: 01/14/18 10:41 Dose: 100 mg Bisacodyl (Dulcolax) 10 mg PO DAILYPRN PRN PRN Reason: Constipation Calcium Carbonate (Tums) 1,000 mg PO Q4H PRN PRN Reason: Heartburn or Indigestion Carvedilol (Coreg) 12.5 mg PO BID [facility] Last Admin: 01/15/18 09:16 Dose: 12.5 mg Clopidogrel Bisulfate (Plavix) 75 mg PO DAILY [facility] Last Admin: 01/15/18 09:17 Dose: 75 mg Dextrose/Water (Dextrose 50%) 25 gm SLOW IVP PRN PRN PRN Reason: Hypoglycemia Enoxaparin Sodium (Lovenox) 40 mg SC 0900 [facility] Last Admin: 01/15/18 09:16 Dose: 40 mg Glucagon (Glucagon) 1 mg IM PRN PRN PRN Reason: Hypoglycemia Guaifenesin (Robitussin Sf) 200 mg PO Q4H PRN PRN Reason: Cough Last Admin: 01/14/18 10:42 Dose: 200 mg Hydralazine HCl (Apresoline) 10 mg SLOW IVP Q4H PRN PRN Reason: Systolic BP > 180 Last Admin: 01/09/18 08:13 Dose: 10 mg Hydralazine HCl (Apresoline) 25 mg PO BID [facility] Last Admin: 01/15/18 09:16 Dose: 25 mg Dextrose/Water (D5w) 1,000 mls @ 0 mls/hr IV .Q0M PRN; As Directed PRN Reason: Hypoglycemia Insulin Human Lispro (Humalog) 0 units SC .MODERATE SLIDING SC PRN PRN Reason: Moderate Correctional Scale Last Admin: 01/14/18 17:43 Dose: 2 unit Insulin Human Lispro (Humalog) 0 units SC .BEDTIME SLIDING SC PRN PRN Reason: Bedtime Correctional Scale Labetalol HCl (Normodyne) 5 mg SLOW IVP Q4H PRN PRN Reason: sbp >190 Last Admin: 01/07/18 23:35 Dose: 5 mg Lisinopril (Zestril) 20 mg PO BID [facility] Last Admin: 01/15/18 09:16 Dose: 20 mg Loratadine (Claritin) 10 mg PO DAILYPRN PRN PRN Reason: Sinus Symptoms Nitroglycerin (Nitrostat) 0.4 mg SL Q5MIN PRN PRN Reason: Chest Pain Last Admin: 01/07/18 14:16 Dose: 0.4 mg Ondansetron HCl (Zofran) 4 mg IVP Q6H PRN PRN Reason: Nausea/Vomiting Senna (Senokot) 2 tab PO HSPRN PRN PRN Reason: Constipation Tamsulosin HCl (Flomax) 0.4 mg PO QPM [facility] Last Admin: 01/14/18 21:35 Dose: 0.4 mg Tramadol HCl (Ultram) 50 mg PO Q4H PRN PRN Reason: Moderate Pain (4-6) Last Admin: 01/09/18 17:26 Dose: 50 mg
[2018-01-15] MEDS: HumaLOG 300 UNITS/3 ML VIAL SC PRN (11:39)
[2018-01-15] MEDS: Tamsulosin HCl 0.4 MG CAP PO SCH (22:16)
[2018-01-15] MEDS: Atorvastatin Calcium 40 MG TAB PO SCH (22:17)
[2018-01-16] MEDS: Lisinopril 20 MG TAB PO SCH ×2 (08:12→23:11)
[2018-01-16] MEDS: hydrALAZINE 25 MG TAB PO SCH ×2 (08:13→23:12)
[2018-01-16] MEDS: Carvedilol 25 MG TAB PO SCH ×2 (08:13→23:12)
[2018-01-16] MEDS: Clopidogrel Bisulfate 75 MG TAB PO SCH (08:13)
[2018-01-16] MEDS: Enoxaparin Sodium 40 MG/0.4 ML SYRINGE SC SCH (08:13)
--- NOTE | 2018-01-16 11:12 | PDOC.PN ---
- Subjective Encounter Start Date: 01/16/18 Encounter Start Time: 07:15 Patient seen and examined. No new complaints. No overnight events - Objective MAR Reviewed: Yes Vital Signs & Weight: Vital Signs (12 hours) Temp Pulse Resp BP BP Pulse Ox 01/16/18 10:51 70 20 01/16/18 08:13 83 122/95 H 01/16/18 08:12 122/95 H 01/16/18 08:00 98.6 F 83 20 01/16/18 07:45 98.6 F 83 20 122/95 H 96 01/16/18 06:30 66 16 01/16/18 04:00 98.8 F 75 18 115/82 92 L 01/16/18 00:00 97.8 F 83 18 98/76 95 I&O: 01/15/18 01/16/18 01/17/18 06:59 06:59 06:59 Intake Total 100 750 Balance 100 750 Result Diagrams: 01/14/18 08:53 01/15/18 06:54 Additional Labs: Accuchecks 01/16/18 01/16/18 01/15/18 10:53 05:56 20:32 POC Glucose 204 H 151 H 152 H 01/15/18 16:34 POC Glucose 123 H EKG Reviewed by me: Yes Phys Exam - Physical Examination Constitutional: NAD HEENT: PERRLA, moist MMs, sclera anicteric Neck: no JVD, supple Respiratory: no wheezing, no rales, no rhonchi Cardiovascular: RRR, no significant murmur, no rub Gastrointestinal: soft, non-tender, no distention, positive bowel sounds Musculoskeletal: no edema, pulses present left foot toe ampupated except great toe Neurological: moves all 4 limbs Psychiatric: normal affect, A&O x 3 Skin: no rash, normal turgor Dx/Plan (1) Hypokalemia Code(s): E87.6 - HYPOKALEMIA Status: Resolved (2) Hypomagnesemia Code(s): E83.42 - HYPOMAGNESEMIA Status: Resolved (3) Pneumothorax Code(s): J93.9 - PNEUMOTHORAX, UNSPECIFIED Status: Resolved (4) Pulmonary nodule Code(s): R91.1 - SOLITARY PULMONARY NODULE Status: Acute (5) Stroke Code(s): I63.9 - CEREBRAL INFARCTION, UNSPECIFIED Status: Acute (6) BPH (benign prostatic hyperplasia) Code(s): N40.0 - BENIGN PROSTATIC HYPERPLASIA WITHOUT LOWER URINRY TRACT SYMP Status: Chronic (7) Diabetes type 2, controlled Code(s): E11.9 - TYPE 2 DIABETES MELLITUS WITHOUT COMPLICATIONS Status: Chronic (8) Dyslipidemia Code(s): E78.5 - HYPERLIPIDEMIA, UNSPECIFIED Status: Chronic (9) Hypertension Code(s): I10 - ESSENTIAL (PRIMARY) HYPERTENSION Status: Chronic - Plan cont current plan of care, PT/OT, senior administrative services officer * medication reviewed as below * symptomatic treatment * stable medically with current treatment * await insurance approval for SNU. Review of Systems - Review of Systems Eyes: negative: Pain, Vision Change, Conjunctivae Inflammation, Eyelid Inflammation, Redness, Other ENT: negative: Ear Pain, Ear Discharge, Nose Pain, Nose Discharge, Nose Congestion, Mouth Pain, Mouth Swelling, Throat Pain, Throat Swelling, Other Respiratory: negative: Cough, Dry, Shortness of Breath, Hemoptysis, SOB with Excertion, Pleuritic Pain, Sputum, Wheezing Cardiovascular: negative: chest pain, palpitations, orthopnea, paroxysmal nocturnal dyspnea, edema, light headedness, other Gastrointestinal: negative: Nausea, Vomiting, Abdominal Pain, Diarrhea, Constipation, Melena, Hematochezia, Other Genitourinary: negative: Dysuria, Frequency, Incontinence, Hematuria, Retention , Other Musculoskeletal: negative: Neck Pain, Shoulder Pain, Arm Pain, Back Pain, Hand Pain, Leg Pain, Foot Pain, Other - Medications/Allergies Allergies/Adverse Reactions: Allergies Allergy/AdvReac Type Severity Reaction Status Date / Time Penicillins Allergy Verified 12/22/16 00:11 Medications: Current Medications Acetaminophen (Tylenol) 650 mg PO Q4H PRN PRN Reason: Headache/Fever or Pain Last Admin: 01/06/18 22:34 Dose: 650 mg Hydrocodone Bitart/Acetaminophen ([place] 5/325) 1 tab PO Q4H PRN PRN Reason: Moderate Pain (4-6) Last Admin: 01/09/18 09:33 Dose: 1 tab Hydrocodone Bitart/Acetaminophen ([place] 5/325) 2 tab PO Q4H PRN PRN Reason: Moderate to Severe Pain (6-10) Last Admin: 01/08/18 09:06 Dose: 2 tab Al Hydroxide/Mg Hydroxide (Maalox) 30 ml PO Q6H PRN PRN Reason: Heartburn or Indigestion Albuterol/Ipratropium (Duoneb) 3 ml NEB [id number] [facility] Last Admin: 01/16/18 10:51 Dose: 3 ml Atorvastatin Calcium (Lipitor) 40 mg PO HS [facility] Last Admin: 01/15/18 22:17 Dose: 40 mg Benzonatate (Tessalon) 100 mg PO Q4H PRN PRN Reason: Cough Last Admin: 01/14/18 10:41 Dose: 100 mg Bisacodyl (Dulcolax) 10 mg PO DAILYPRN PRN PRN Reason: Constipation Calcium Carbonate (Tums) 1,000 mg PO Q4H PRN PRN Reason: Heartburn or Indigestion Carvedilol (Coreg) 12.5 mg PO BID [facility] Last Admin: 01/16/18 08:13 Dose: 12.5 mg Clopidogrel Bisulfate (Plavix) 75 mg PO DAILY [facility] Last Admin: 01/16/18 08:13 Dose: 75 mg Dextrose/Water (Dextrose 50%) 25 gm SLOW IVP PRN PRN PRN Reason: Hypoglycemia Enoxaparin Sodium (Lovenox) 40 mg SC 0900 [facility] Last Admin: 01/16/18 08:13 Dose: 40 mg Glucagon (Glucagon) 1 mg IM PRN PRN PRN Reason: Hypoglycemia Guaifenesin (Robitussin Sf) 200 mg PO Q4H PRN PRN Reason: Cough Last Admin: 01/14/18 10:42 Dose: 200 mg Hydralazine HCl (Apresoline) 10 mg SLOW IVP Q4H PRN PRN Reason: Systolic BP > 180 Last Admin: 01/09/18 08:13 Dose: 10 mg Hydralazine HCl (Apresoline) 25 mg PO BID [facility] Last Admin: 01/16/18 08:13 Dose: 25 mg Dextrose/Water (D5w) 1,000 mls @ 0 mls/hr IV .Q0M PRN; As Directed PRN Reason: Hypoglycemia Insulin Human Lispro (Humalog) 0 units SC .MODERATE SLIDING SC PRN PRN Reason: Moderate Correctional Scale Last Admin: 01/15/18 11:39 Dose: 4 unit Insulin Human Lispro (Humalog) 0 units SC .BEDTIME SLIDING SC PRN PRN Reason: Bedtime Correctional Scale Labetalol HCl (Normodyne) 5 mg SLOW IVP Q4H PRN PRN Reason: sbp >190 Last Admin: 01/07/18 23:35 Dose: 5 mg Lisinopril (Zestril) 20 mg PO BID [facility] Last Admin: 01/16/18 08:12 Dose: 20 mg Loratadine (Claritin) 10 mg PO DAILYPRN PRN PRN Reason: Sinus Symptoms Nitroglycerin (Nitrostat) 0.4 mg SL Q5MIN PRN PRN Reason: Chest Pain Last Admin: 01/07/18 14:16 Dose: 0.4 mg Ondansetron HCl (Zofran) 4 mg IVP Q6H PRN PRN Reason: Nausea/Vomiting Senna (Senokot) 2 tab PO HSPRN PRN PRN Reason: Constipation Sodium Chloride (Flush - Normal Saline) 10 ml IVF Q12HR [facility] Last Admin: 01/16/18 08:14 Dose: 10 ml Sodium Chloride (Flush - Normal Saline) 10 ml IVF PRN PRN PRN Reason: Saline Flush Tamsulosin HCl (Flomax) 0.4 mg PO QPM [facility] Last Admin: 01/15/18 22:16 Dose: 0.4 mg Tramadol HCl (Ultram) 50 mg PO Q4H PRN PRN Reason: Moderate Pain (4-6) Last Admin: 01/09/18 17:26 Dose: 50 mg
[2018-01-16] MEDS: HumaLOG 300 UNITS/3 ML VIAL SC PRN (11:28)
[2018-01-16] MEDS: Atorvastatin Calcium 40 MG TAB PO SCH (23:12)
[2018-01-16] MEDS: Tamsulosin HCl 0.4 MG CAP PO SCH (23:12)
[2018-01-17] MEDS: HumaLOG 300 UNITS/3 ML VIAL SC PRN ×2 (06:44→11:29)
[2018-01-17] MEDS: Carvedilol 25 MG TAB PO SCH ×2 (09:04→23:13)
[2018-01-17] MEDS: Lisinopril 20 MG TAB PO SCH ×2 (09:05→23:13)
[2018-01-17] MEDS: Enoxaparin Sodium 40 MG/0.4 ML SYRINGE SC SCH (09:06)
[2018-01-17] MEDS: Clopidogrel Bisulfate 75 MG TAB PO SCH (09:06)
[2018-01-17] MEDS: hydrALAZINE 25 MG TAB PO SCH ×2 (09:08→23:12)
--- NOTE | 2018-01-17 12:11 | PDOC.PN ---
- Subjective Encounter Start Date: 01/17/18 Encounter Start Time: 07:15 Patient seen and examined. No new complaints. No overnight events - Objective MAR Reviewed: Yes Vital Signs & Weight: Vital Signs (12 hours) Temp Pulse Pulse Pulse Resp BP BP 01/17/18 11:48 97.9 F 76 20 01/17/18 10:20 77 15 01/17/18 09:08 167/87 H 01/17/18 09:05 167/87 H 01/17/18 08:59 97.7 F 75 20 01/17/18 08:20 69 60 154/84 H 01/17/18 07:58 97.7 F 75 20 01/17/18 06:53 81 16 01/17/18 03:55 97.2 F L 80 20 01/17/18 00:40 98.2 F 76 20 BP BP BP Pulse Ox 01/17/18 11:48 128/71 94 L 01/17/18 10:20 98 01/17/18 09:08 01/17/18 09:05 01/17/18 08:59 94 L 01/17/18 08:20 167/87 H 01/17/18 07:58 115/76 94 L 01/17/18 06:53 97 01/17/18 03:55 118/86 97 01/17/18 00:40 104/67 91 L I&O: 01/16/18 01/17/18 01/18/18 06:59 06:59 06:59 Intake Total 750 740 Balance 750 740 Result Diagrams: 01/14/18 08:53 01/15/18 06:54 Additional Labs: Accuchecks 01/17/18 01/17/18 01/16/18 11:22 05:41 21:39 POC Glucose 182 H 155 H 183 H 01/16/18 16:55 POC Glucose 118 H EKG Reviewed by me: Yes Phys Exam - Physical Examination Constitutional: NAD HEENT: PERRLA, moist MMs, sclera anicteric Neck: no JVD, supple Respiratory: no wheezing, no rales, no rhonchi Cardiovascular: RRR, no significant murmur, no rub Gastrointestinal: soft, non-tender, no distention, positive bowel sounds Musculoskeletal: no edema, pulses present Neurological: non-focal, normal sensation, moves all 4 limbs Lymphatic: no nodes Psychiatric: normal affect Skin: no rash, normal turgor Dx/Plan (1) Hypokalemia Code(s): E87.6 - HYPOKALEMIA Status: Resolved (2) Hypomagnesemia Code(s): E83.42 - HYPOMAGNESEMIA Status: Resolved (3) Pneumothorax Code(s): J93.9 - PNEUMOTHORAX, UNSPECIFIED Status: Resolved (4) Pulmonary nodule Code(s): R91.1 - SOLITARY PULMONARY NODULE Status: Acute (5) Stroke Code(s): I63.9 - CEREBRAL INFARCTION, UNSPECIFIED Status: Acute (6) BPH (benign prostatic hyperplasia) Code(s): N40.0 - BENIGN PROSTATIC HYPERPLASIA WITHOUT LOWER URINRY TRACT SYMP Status: Chronic (7) Diabetes type 2, controlled Code(s): E11.9 - TYPE 2 DIABETES MELLITUS WITHOUT COMPLICATIONS Status: Chronic (8) Dyslipidemia Code(s): E78.5 - HYPERLIPIDEMIA, UNSPECIFIED Status: Chronic (9) Hypertension Code(s): I10 - ESSENTIAL (PRIMARY) HYPERTENSION Status: Chronic - Plan cont current plan of care, PT/OT, social services designee * medically stable with current treatment * medication reviewed as below * symptomatic treatment * await insurance approval for snu placement. Review of Systems - Review of Systems Eyes: negative: Pain, Vision Change, Conjunctivae Inflammation, Eyelid Inflammation, Redness, Other ENT: negative: Ear Pain, Ear Discharge, Nose Pain, Nose Discharge, Nose Congestion, Mouth Pain, Mouth Swelling, Throat Pain, Throat Swelling, Other Respiratory: negative: Cough, Dry, Shortness of Breath, Hemoptysis, SOB with Excertion, Pleuritic Pain, Sputum, Wheezing Cardiovascular: negative: chest pain, palpitations, orthopnea, paroxysmal nocturnal dyspnea, edema, light headedness, other Gastrointestinal: negative: Nausea, Vomiting, Abdominal Pain, Diarrhea, Constipation, Melena, Hematochezia, Other Genitourinary: negative: Dysuria, Frequency, Incontinence, Hematuria, Retention , Other Musculoskeletal: negative: Neck Pain, Shoulder Pain, Arm Pain, Back Pain, Hand Pain, Leg Pain, Foot Pain, Other Skin: negative: Rash, Lesions, Kvng, Bruising, Other - Medications/Allergies Allergies/Adverse Reactions: Allergies Allergy/AdvReac Type Severity Reaction Status Date / Time Penicillins Allergy Verified 12/22/16 00:11 Medications: Current Medications Acetaminophen (Tylenol) 650 mg PO Q4H PRN PRN Reason: Headache/Fever or Pain Last Admin: 01/06/18 22:34 Dose: 650 mg Hydrocodone Bitart/Acetaminophen ([place] 5/325) 1 tab PO Q4H PRN PRN Reason: Moderate Pain (4-6) Last Admin: 01/09/18 09:33 Dose: 1 tab Hydrocodone Bitart/Acetaminophen ([place] 5/325) 2 tab PO Q4H PRN PRN Reason: Moderate to Severe Pain (6-10) Last Admin: 01/08/18 09:06 Dose: 2 tab Al Hydroxide/Mg Hydroxide (Maalox) 30 ml PO Q6H PRN PRN Reason: Heartburn or Indigestion Albuterol/Ipratropium (Duoneb) 3 ml NEB [id number] [facility] Last Admin: 01/17/18 10:20 Dose: 3 ml Atorvastatin Calcium (Lipitor) 40 mg PO HS [facility] Last Admin: 01/16/18 23:12 Dose: 40 mg Benzonatate (Tessalon) 100 mg PO Q4H PRN PRN Reason: Cough Last Admin: 01/14/18 10:41 Dose: 100 mg Bisacodyl (Dulcolax) 10 mg PO DAILYPRN PRN PRN Reason: Constipation Calcium Carbonate (Tums) 1,000 mg PO Q4H PRN PRN Reason: Heartburn or Indigestion Carvedilol (Coreg) 12.5 mg PO BID [facility] Last Admin: 01/17/18 09:04 Dose: 12.5 mg Clopidogrel Bisulfate (Plavix) 75 mg PO DAILY [facility] Last Admin: 01/17/18 09:06 Dose: 75 mg Dextrose/Water (Dextrose 50%) 25 gm SLOW IVP PRN PRN PRN Reason: Hypoglycemia Enoxaparin Sodium (Lovenox) 40 mg SC 0900 [facility] Last Admin: 01/17/18 09:06 Dose: 40 mg Glucagon (Glucagon) 1 mg IM PRN PRN PRN Reason: Hypoglycemia Guaifenesin (Robitussin Sf) 200 mg PO Q4H PRN PRN Reason: Cough Last Admin: 01/14/18 10:42 Dose: 200 mg Hydralazine HCl (Apresoline) 10 mg SLOW IVP Q4H PRN PRN Reason: Systolic BP > 180 Last Admin: 01/09/18 08:13 Dose: 10 mg Hydralazine HCl (Apresoline) 25 mg PO BID [facility] Last Admin: 01/17/18 09:08 Dose: 25 mg Dextrose/Water (D5w) 1,000 mls @ 0 mls/hr IV .Q0M PRN; As Directed PRN Reason: Hypoglycemia Insulin Human Lispro (Humalog) 0 units SC .MODERATE SLIDING SC PRN PRN Reason: Moderate Correctional Scale Last Admin: 01/17/18 11:29 Dose: 2 unit Insulin Human Lispro (Humalog) 0 units SC .BEDTIME SLIDING SC PRN PRN Reason: Bedtime Correctional Scale Labetalol HCl (Normodyne) 5 mg SLOW IVP Q4H PRN PRN Reason: sbp >190 Last Admin: 01/07/18 23:35 Dose: 5 mg Lisinopril (Zestril) 20 mg PO BID [facility] Last Admin: 01/17/18 09:05 Dose: 20 mg Loratadine (Claritin) 10 mg PO DAILYPRN PRN PRN Reason: Sinus Symptoms Nitroglycerin (Nitrostat) 0.4 mg SL Q5MIN PRN PRN Reason: Chest Pain Last Admin: 01/07/18 14:16 Dose: 0.4 mg Ondansetron HCl (Zofran) 4 mg IVP Q6H PRN PRN Reason: Nausea/Vomiting Senna (Senokot) 2 tab PO HSPRN PRN PRN Reason: Constipation Sodium Chloride (Flush - Normal Saline) 10 ml IVF Q12HR [facility] Last Admin: 01/17/18 09:09 Dose: 10 ml Sodium Chloride (Flush - Normal Saline) 10 ml IVF PRN PRN PRN Reason: Saline Flush Tamsulosin HCl (Flomax) 0.4 mg PO QPM [facility] Last Admin: 01/16/18 23:12 Dose: 0.4 mg
[2018-01-17] MEDS: Atorvastatin Calcium 40 MG TAB PO SCH (23:13)
[2018-01-17] MEDS: Tamsulosin HCl 0.4 MG CAP PO SCH (23:13)
[2018-01-18] MEDS: Lisinopril 20 MG TAB PO SCH ×2 (09:23→22:08)
[2018-01-18] MEDS: hydrALAZINE 25 MG TAB PO SCH ×2 (09:24→22:09)
[2018-01-18] MEDS: Clopidogrel Bisulfate 75 MG TAB PO SCH (09:24)
[2018-01-18] MEDS: Carvedilol 25 MG TAB PO SCH ×2 (09:24→22:09)
[2018-01-18] MEDS: Enoxaparin Sodium 40 MG/0.4 ML SYRINGE SC SCH (09:24)
[2018-01-18] MEDS ORDERED: Sodium Chloride 0.9% 500 ML IV SCH (11:00)
--- NOTE | 2018-01-18 11:15 | PDOC.PN ---
- Subjective Encounter Start Date: 01/18/18 Encounter Start Time: 07:10 Patient seen and examined. No new complaints. No overnight events - Objective MAR Reviewed: Yes Vital Signs & Weight: Vital Signs (12 hours) Temp Pulse Resp BP BP BP Pulse Ox 01/18/18 10:49 87 16 96 01/18/18 09:24 91 130/85 01/18/18 09:23 130/85 01/18/18 08:59 98.0 F 91 20 95 01/18/18 08:00 98.0 F 91 20 130/85 95 01/18/18 07:36 85 16 92 L 01/18/18 04:00 98.5 F 84 20 94/70 94 L 01/18/18 02:12 65 16 94 L I&O: 01/17/18 01/18/18 01/19/18 06:59 06:59 06:59 Intake Total 740 1050 Balance 740 1050 Result Diagrams: 01/14/18 08:53 01/15/18 06:54 Additional Labs: Accuchecks 01/18/18 01/18/18 01/17/18 10:45 06:00 22:08 POC Glucose 232 H 144 H 126 H 01/17/18 01/17/18 16:53 11:22 POC Glucose 119 H 182 H EKG Reviewed by me: Yes (nsr) Phys Exam - Physical Examination Constitutional: NAD HEENT: PERRLA, moist MMs, sclera anicteric Neck: no JVD, supple Respiratory: no wheezing, no rales, no rhonchi Cardiovascular: RRR, no significant murmur, no rub Gastrointestinal: soft, non-tender, no distention, positive bowel sounds Musculoskeletal: no edema, pulses present Neurological: non-focal, normal sensation Lymphatic: no nodes Psychiatric: normal affect Skin: no rash, normal turgor Dx/Plan (1) Hypokalemia Code(s): E87.6 - HYPOKALEMIA Status: Resolved (2) Hypomagnesemia Code(s): E83.42 - HYPOMAGNESEMIA Status: Resolved (3) Pneumothorax Code(s): J93.9 - PNEUMOTHORAX, UNSPECIFIED Status: Resolved (4) Pulmonary nodule Code(s): R91.1 - SOLITARY PULMONARY NODULE Status: Acute (5) Stroke Code(s): I63.9 - CEREBRAL INFARCTION, UNSPECIFIED Status: Acute (6) BPH (benign prostatic hyperplasia) Code(s): N40.0 - BENIGN PROSTATIC HYPERPLASIA WITHOUT LOWER URINRY TRACT SYMP Status: Chronic (7) Diabetes type 2, controlled Code(s): E11.9 - TYPE 2 DIABETES MELLITUS WITHOUT COMPLICATIONS Status: Chronic (8) Dyslipidemia Code(s): E78.5 - HYPERLIPIDEMIA, UNSPECIFIED Status: Chronic (9) Hypertension Code(s): I10 - ESSENTIAL (PRIMARY) HYPERTENSION Status: Chronic - Plan cont current plan of care, PT/OT, social worker psychiatric * medication reviewed as below * symptomatic treatment * await placement * as per PT pt needs assistance and recommends SNU Addendum: pt had fascial droop later on, so CT brain obtained, His Blood pressure is low, so 500 ml IVF bolus will be given will monitor neurologically will get CT angio brain Review of Systems - Review of Systems Eyes: negative: Pain, Vision Change, Conjunctivae Inflammation, Eyelid Inflammation, Redness, Other ENT: negative: Ear Pain, Ear Discharge, Nose Pain, Nose Discharge, Nose Congestion, Mouth Pain, Mouth Swelling, Throat Pain, Throat Swelling, Other Respiratory: negative: Cough, Dry, Shortness of Breath, Hemoptysis, SOB with Excertion, Pleuritic Pain, Sputum, Wheezing Cardiovascular: negative: chest pain, palpitations, orthopnea, paroxysmal nocturnal dyspnea, edema, light headedness, other Gastrointestinal: negative: Nausea, Vomiting, Abdominal Pain, Diarrhea, Constipation, Melena, Hematochezia, Other Genitourinary: negative: Dysuria, Frequency, Incontinence, Hematuria, Retention , Other Musculoskeletal: negative: Neck Pain, Shoulder Pain, Arm Pain, Back Pain, Hand Pain, Leg Pain, Foot Pain, Other Skin: negative: Rash, Lesions, Kvng, Bruising, Other - Medications/Allergies Allergies/Adverse Reactions: Allergies Allergy/AdvReac Type Severity Reaction Status Date / Time Penicillins Allergy Verified 12/22/16 00:11 Medications: Current Medications Acetaminophen (Tylenol) 650 mg PO Q4H PRN PRN Reason: Headache/Fever or Pain Last Admin: 01/06/18 22:34 Dose: 650 mg Al Hydroxide/Mg Hydroxide (Maalox) 30 ml PO Q6H PRN PRN Reason: Heartburn or Indigestion Albuterol/Ipratropium (Duoneb) 3 ml NEB [id number] [facility] Last Admin: 01/18/18 10:49 Dose: 3 ml Atorvastatin Calcium (Lipitor) 40 mg PO HS [facility] Last Admin: 01/17/18 23:13 Dose: 40 mg Benzonatate (Tessalon) 100 mg PO Q4H PRN PRN Reason: Cough Last Admin: 01/14/18 10:41 Dose: 100 mg Bisacodyl (Dulcolax) 10 mg PO DAILYPRN PRN PRN Reason: Constipation Calcium Carbonate (Tums) 1,000 mg PO Q4H PRN PRN Reason: Heartburn or Indigestion Carvedilol (Coreg) 12.5 mg PO BID [facility] Last Admin: 01/18/18 09:24 Dose: 12.5 mg Clopidogrel Bisulfate (Plavix) 75 mg PO DAILY [facility] Last Admin: 01/18/18 09:24 Dose: 75 mg Dextrose/Water (Dextrose 50%) 25 gm SLOW IVP PRN PRN PRN Reason: Hypoglycemia Enoxaparin Sodium (Lovenox) 40 mg SC 0900 [facility] Last Admin: 01/18/18 09:24 Dose: 40 mg Glucagon (Glucagon) 1 mg IM PRN PRN PRN Reason: Hypoglycemia Guaifenesin (Robitussin Sf) 200 mg PO Q4H PRN PRN Reason: Cough Last Admin: 01/14/18 10:42 Dose: 200 mg Hydralazine HCl (Apresoline) 10 mg SLOW IVP Q4H PRN PRN Reason: Systolic BP > 180 Last Admin: 01/09/18 08:13 Dose: 10 mg Hydralazine HCl (Apresoline) 25 mg PO BID [facility] Last Admin: 01/18/18 09:24 Dose: 25 mg Dextrose/Water (D5w) 1,000 mls @ 0 mls/hr IV .Q0M PRN; As Directed PRN Reason: Hypoglycemia Sodium Chloride (Normal Saline 0.9%) 500 mls @ 999 mls/hr IV .Q31M [facility] Stop: 01/18/18 11:30 Last Admin: 01/18/18 11:04 Dose: 500 mls Insulin Human Lispro (Humalog) 0 units SC .MODERATE SLIDING SC PRN PRN Reason: Moderate Correctional Scale Last Admin: 01/17/18 11:29 Dose: 2 unit Insulin Human Lispro (Humalog) 0 units SC .BEDTIME SLIDING SC PRN PRN Reason: Bedtime Correctional Scale Labetalol HCl (Normodyne) 5 mg SLOW IVP Q4H PRN PRN Reason: sbp >190 Last Admin: 01/07/18 23:35 Dose: 5 mg Lisinopril (Zestril) 20 mg PO BID [facility] Last Admin: 01/18/18 09:23 Dose: 20 mg Loratadine (Claritin) 10 mg PO DAILYPRN PRN PRN Reason: Sinus Symptoms Nitroglycerin (Nitrostat) 0.4 mg SL Q5MIN PRN PRN Reason: Chest Pain Last Admin: 01/07/18 14:16 Dose: 0.4 mg Ondansetron HCl (Zofran) 4 mg IVP Q6H PRN PRN Reason: Nausea/Vomiting Senna (Senokot) 2 tab PO HSPRN PRN PRN Reason: Constipation Sodium Chloride (Flush - Normal Saline) 10 ml IVF Q12HR [facility] Last Admin: 01/18/18 10:56 Dose: 10 ml Sodium Chloride (Flush - Normal Saline) 10 ml IVF PRN PRN PRN Reason: Saline Flush Tamsulosin HCl (Flomax) 0.4 mg PO QPM [facility] Last Admin: 01/17/18 23:13 Dose: 0.4 mg
[2018-01-18] MEDS ORDERED: Aspirin 325 MG TAB PO SCH (11:45)
[2018-01-18] MEDS ORDERED: Lorazepam 2 MG/ML VIAL SLOW IVP SCH (11:45)
[2018-01-18] MEDS: HumaLOG 300 UNITS/3 ML VIAL SC PRN (12:46)
--- NOTE | 2018-01-18 13:02 | CT ---
BRAIN CT WITHOUT CONTRAST: History: Left sided weakness and facial droop. Comparison: None. Technique: Noncontrast head CT is performed from skull base to skull vertex. FINDINGS: No parenchymal hemorrhage. No extraaxial hematoma. No midline shift. Basilar cisterns are patent. The re is malacic change involving the right temporoparietal lobe. The remainder of the cerebrum demonstr ates preservation of cortical parson white matter differentiation. Remote lacunar infarct involving the right lentiform nucleus. No evidence of hydrocephalus. The calvarium is intact. Adequate aeration of the sinuses and mastoid air cells. IMPRESSION: No acute intracranial process. POS: [facility]
--- NOTE | 2018-01-18 13:26 | MRI ---
MRI BRAIN WITHOUT CONTRAST: Date: 01/18/18 HISTORY: Stroke-like symptoms, left-sided weakness, facial droop. FINDINGS: Correlation made with CT scan from same date. Comparison made with the MRI of 01/07/18. Changes of cortical atrophy and chronic small vessel ischemic disease, remote lacunar infarction with hemosiderin deposition in the right basal ganglia, and encephalomalacia in the watershed distributio n of the right MCA/[employer]ESS [employer]URING [employer]ER infarction are stable. The small foci of restricted diffusion in the right cerebral hemisphere white matter are again seen a nd demonstrate lower signal intensity. There are a couple of new tiny foci of restricted diffusion in the right periventricular white matter posteriorly consistent with new acute lacunar infarctions. The ventricular size is stable and the basilar cisterns are patent. No midline shift or abnormal extr a-axial fluid collections are seen. IMPRESSION: A few new acute lacunar white matter infarctions in the right cerebral hemisphere since 01/07/18. POS: [facility]
--- NOTE | 2018-01-18 14:34 | PDOC.EVN ---
Event Note - Event Note Event Note: pt seen and examined bedside he only has right fascial droop he does not have any other motor deficit his NIH score was 2 and then after MRI 0 he is not a candidate for TPA as he gets recurrent lacunar cva, he will need DARI and will consult cardiology will add aspirin in addition neurology needs to see again later today not stable for discharge yet he will need snu/rehab on discharge
[2018-01-18] MEDS: Atorvastatin Calcium 40 MG TAB PO SCH (22:09)
[2018-01-18] MEDS: Tamsulosin HCl 0.4 MG CAP PO SCH (22:09)
--- NOTE | 2018-01-18 23:32 | CON ---
HISTORY OF PRESENT ILLNESS: The patient is a pleasant 72-year-old gentleman who developed acute onset of left-sided weakness. The patient has a history of nonsustained ventricular tachycardia. He underwent a stress test and echocardiogram during a recent hospitalization which were unremarkable. The patient has a history of recurrent cerebrovascular accidents. The patient has been on antiplatelet medication. Today he had a recurrent episode where he developed left-sided weakness and slurred speech. His symptoms subsequently resolved. The patient denied any palpitations or chest discomfort. PAST MEDICAL HISTORY: 1. Cerebrovascular accident. 2. Nonsustained ventricular tachycardia. 3. Hypertension. 4. Diabetes mellitus. 5. Dyslipidemia. 6. Benign prostatic hypertrophy. PAST SURGICAL HISTORY: He had a toe amputation. ALLERGIES: Penicillin. FAMILY HISTORY: No strong family history of coronary artery disease. SOCIAL HISTORY: Nonsmoker. MEDICATIONS: See nursing list. REVIEW OF SYSTEMS: Ten-point system otherwise unremarkable. PHYSICAL EXAMINATION: GENERAL: This is an obese gentleman in no acute distress. VITAL SIGNS: Blood pressure 123/94. NECK: No interventions are no carotid bruits. LUNGS: Clear to auscultation. HEART: Regular rate and rhythm, normal S1, S2, no murmurs. ABDOMEN: Nondistended. EXTREMITIES: No edema. SKIN: Warm and dry. NEUROLOGIC: There is mild decreased strength in the left upper and lower extremities. SKIN: Warm, dry. VASCULAR: Radial pulses 2+. LABORATORY DATA: White blood count 7.6, hemoglobin 14.6, hematocrit 43.0, platelets 321. Sodium is 136, potassium 4.0, chloride 106, bicarbonate 19, BUN 6, creatinine 0.68, glucose 146. His EKG revealed normal sinus rhythm, nonspecific ST-T wave abnormality. Telemetry monitoring revealed normal sinus rhythm. IMPRESSION: 1. Recurrent cerebrovascular accident. 2. History of nonsustained ventricular tachycardia. 3. Hypertension. 4. Diabetes mellitus. 5. Dyslipidemia. This gentleman has had recurrent cerebrovascular accident. These appear to be lacunar infarcts. His blood pressure has been well controlled. From a cardiac standpoint, a DARI could be obtained to evaluate whether there is evidence of a PFO. We will follow this patient with you through his hospitalization. MATHIEU
--- NOTE | 2018-01-19 03:01 | PRG ---
DATE OF SERVICE: 01/18/2018 IMPRESSION: The patient had a transient left facial droop and left arm weakness earlier this morning lasting about an hour. His MRI suggests some punctate acute ischemic change in the right deep white matter region. He was not taking aspirin prior to this event. Agree with the hospitalist. Plan to add aspirin and to pursue a transesophageal echo to rule out possibility of a cardioembolic event, i s more than likely thrombotic in etiology.
[2018-01-19] MEDS: hydrALAZINE 25 MG TAB PO SCH ×2 (08:25→21:01)
[2018-01-19] MEDS: Carvedilol 25 MG TAB PO SCH ×2 (08:26→21:01)
[2018-01-19] MEDS: Enoxaparin Sodium 40 MG/0.4 ML SYRINGE SC SCH (08:26)
[2018-01-19] MEDS: Lisinopril 20 MG TAB PO SCH ×2 (08:26→21:01)
[2018-01-19] MEDS: Aspirin 325 MG TAB PO SCH (08:26)
[2018-01-19] MEDS: Clopidogrel Bisulfate 75 MG TAB PO SCH (08:26)
--- NOTE | 2018-01-19 11:19 | PDOC.PN ---
- Subjective Encounter Start Date: 01/19/18 Encounter Start Time: 07:20 Patient seen and examined. No new complaints. No overnight events - Objective MAR Reviewed: Yes Vital Signs & Weight: Vital Signs (12 hours) Temp Pulse Resp BP BP Pulse Ox 01/19/18 11:03 72 16 97 01/19/18 08:26 153/92 H 01/19/18 08:25 85 153/92 H 01/19/18 08:13 88 16 92 L 01/19/18 08:00 98.4 F 85 16 153/92 H 94 L 01/19/18 04:00 98.0 F 79 18 112/66 92 L 01/19/18 00:00 97.6 F 86 18 117/77 95 Weight Admit Weight 184 lb 6 oz Weight 184 lb 6 oz I&O: 01/18/18 01/19/18 01/20/18 06:59 06:59 06:59 Intake Total 1050 550 Balance 1050 550 Result Diagrams: 01/14/18 08:53 01/15/18 06:54 Additional Labs: Accuchecks 01/19/18 01/19/18 01/18/18 10:55 06:00 20:32 POC Glucose 149 H 132 H 153 H 01/18/18 16:56 POC Glucose 132 H Radiology Reviewed by me: Yes (mri brain) EKG Reviewed by me: Yes (nsr) Phys Exam - Physical Examination Constitutional: NAD HEENT: PERRLA, moist MMs, sclera anicteric Neck: no JVD, supple Respiratory: no wheezing, no rales, no rhonchi Cardiovascular: RRR, no significant murmur, no rub Gastrointestinal: soft, non-tender, no distention, positive bowel sounds Musculoskeletal: no edema, pulses present Neurological: non-focal, normal sensation Lymphatic: no nodes Psychiatric: normal affect Skin: no rash, normal turgor Dx/Plan (1) Stroke Code(s): I63.9 - CEREBRAL INFARCTION, UNSPECIFIED Status: Acute Comment: recurrent lacunar CVA (2) Hypokalemia Code(s): E87.6 - HYPOKALEMIA Status: Resolved (3) Hypomagnesemia Code(s): E83.42 - HYPOMAGNESEMIA Status: Resolved (4) Pneumothorax Code(s): J93.9 - PNEUMOTHORAX, UNSPECIFIED Status: Resolved (5) Pulmonary nodule Code(s): R91.1 - SOLITARY PULMONARY NODULE Status: Acute (6) BPH (benign prostatic hyperplasia) Code(s): N40.0 - BENIGN PROSTATIC HYPERPLASIA WITHOUT LOWER URINRY TRACT SYMP Status: Chronic (7) Diabetes type 2, controlled Code(s): E11.9 - TYPE 2 DIABETES MELLITUS WITHOUT COMPLICATIONS Status: Chronic (8) Dyslipidemia Code(s): E78.5 - HYPERLIPIDEMIA, UNSPECIFIED Status: Chronic (9) Hypertension Code(s): I10 - ESSENTIAL (PRIMARY) HYPERTENSION Status: Chronic (10) Physical deconditioning Code(s): R53.81 - OTHER MALAISE Status: Acute - Plan cont current plan of care, PT/OT, protective services social worker * today DARI for recurrent CVA * medication reviewed as below * symptomatic treatment * await placement for his physical deconditioning. * continue asa, plavix, statin * neurology recommendation noted * change duoneb as needed Review of Systems - Review of Systems Eyes: negative: Pain, Vision Change, Conjunctivae Inflammation, Eyelid Inflammation, Redness, Other ENT: negative: Ear Pain, Ear Discharge, Nose Pain, Nose Discharge, Nose Congestion, Mouth Pain, Mouth Swelling, Throat Pain, Throat Swelling, Other Respiratory: negative: Cough, Dry, Shortness of Breath, Hemoptysis, SOB with Excertion, Pleuritic Pain, Sputum, Wheezing Cardiovascular: negative: chest pain, palpitations, orthopnea, paroxysmal nocturnal dyspnea, edema, light headedness, other Gastrointestinal: negative: Nausea, Vomiting, Abdominal Pain, Diarrhea, Constipation, Melena, Hematochezia, Other Genitourinary: negative: Dysuria, Frequency, Incontinence, Hematuria, Retention , Other Musculoskeletal: negative: Neck Pain, Shoulder Pain, Arm Pain, Back Pain, Hand Pain, Leg Pain, Foot Pain, Other Skin: negative: Rash, Lesions, Kvng, Bruising, Other Neurological: negative: Weakness, Numbness, Incoordination, Change in Speech, Confusion, Seizures, Other - Medications/Allergies Allergies/Adverse Reactions: Allergies Allergy/AdvReac Type Severity Reaction Status Date / Time Penicillins Allergy Verified 12/22/16 00:11 Medications: Current Medications Acetaminophen (Tylenol) 650 mg PO Q4H PRN PRN Reason: Headache/Fever or Pain Last Admin: 01/06/18 22:34 Dose: 650 mg Al Hydroxide/Mg Hydroxide (Maalox) 30 ml PO Q6H PRN PRN Reason: Heartburn or Indigestion Albuterol/Ipratropium (Duoneb) 3 ml NEB Q4H PRN PRN Reason: SOB Aspirin (Aspirin) 325 mg PO DAILY [facility] Last Admin: 01/19/18 08:26 Dose: 325 mg Atorvastatin Calcium (Lipitor) 40 mg PO HS [facility] Last Admin: 01/18/18 22:09 Dose: 40 mg Benzonatate (Tessalon) 100 mg PO Q4H PRN PRN Reason: Cough Last Admin: 01/14/18 10:41 Dose: 100 mg Bisacodyl (Dulcolax) 10 mg PO DAILYPRN PRN PRN Reason: Constipation Calcium Carbonate (Tums) 1,000 mg PO Q4H PRN PRN Reason: Heartburn or Indigestion Carvedilol (Coreg) 12.5 mg PO BID [facility] Last Admin: 01/19/18 08:26 Dose: 12.5 mg Clopidogrel Bisulfate (Plavix) 75 mg PO DAILY [facility] Last Admin: 01/19/18 08:26 Dose: 75 mg Dextrose/Water (Dextrose 50%) 25 gm SLOW IVP PRN PRN PRN Reason: Hypoglycemia Enoxaparin Sodium (Lovenox) 40 mg SC 0900 [facility] Last Admin: 01/19/18 08:26 Dose: Not Given Glucagon (Glucagon) 1 mg IM PRN PRN PRN Reason: Hypoglycemia Guaifenesin (Robitussin Sf) 200 mg PO Q4H PRN PRN Reason: Cough Last Admin: 01/14/18 10:42 Dose: 200 mg Hydralazine HCl (Apresoline) 10 mg SLOW IVP Q4H PRN PRN Reason: Systolic BP > 180 Last Admin: 01/09/18 08:13 Dose: 10 mg Hydralazine HCl (Apresoline) 25 mg PO BID [facility] Last Admin: 01/19/18 08:25 Dose: 25 mg Dextrose/Water (D5w) 1,000 mls @ 0 mls/hr IV .Q0M PRN PRN Reason: Hypoglycemia Insulin Human Lispro (Humalog) 0 units SC .MODERATE SLIDING SC PRN PRN Reason: Moderate Correctional Scale Last Admin: 01/18/18 12:46 Dose: 4 unit Insulin Human Lispro (Humalog) 0 units SC .BEDTIME SLIDING SC PRN PRN Reason: Bedtime Correctional Scale Labetalol HCl (Normodyne) 5 mg SLOW IVP Q4H PRN PRN Reason: sbp >190 Last Admin: 01/07/18 23:35 Dose: 5 mg Lisinopril (Zestril) 20 mg PO BID [facility] Last Admin: 01/19/18 08:26 Dose: 20 mg Loratadine (Claritin) 10 mg PO DAILYPRN PRN PRN Reason: Sinus Symptoms Nitroglycerin (Nitrostat) 0.4 mg SL Q5MIN PRN PRN Reason: Chest Pain Last Admin: 01/07/18 14:16 Dose: 0.4 mg Ondansetron HCl (Zofran) 4 mg IVP Q6H PRN PRN Reason: Nausea/Vomiting Senna (Senokot) 2 tab PO HSPRN PRN PRN Reason: Constipation Sodium Chloride (Flush - Normal Saline) 10 ml IVF Q12HR [facility] Last Admin: 01/19/18 08:27 Dose: 10 ml Sodium Chloride (Flush - Normal Saline) 10 ml IVF PRN PRN PRN Reason: Saline Flush Tamsulosin HCl (Flomax) 0.4 mg PO QPM [facility] Last Admin: 01/18/18 22:09 Dose: 0.4 mg
[2018-01-19] MEDS ORDERED: PROPOFOL 200 MG/20 ML VIAL ONE (13:04)
[2018-01-19] MEDS ORDERED: PROPOFOL 20 ML ONE (14:11)
--- NOTE | 2018-01-19 15:01 | OP ---
PREPROCEDURE DIAGNOSIS: Recent transient ischemic attack. POSTPROCEDURE DIAGNOSIS: No cardiac etiology for recent TIA. PROCEDURE: DARI. The patient was consented for the procedure. I discussed the procedure in full detail with Mr. Monte. Risks included not limited to , stroke, CA damaged teeth, damage to esophagus requiring emergency surgery as well as reaction to medication. All questions were answered. Given the above, patient agreed to proceed with above procedure. Conscious sedation performed with propofol. The probe passed easy into esophagus. FINDINGS: Overall LVEF is 50%-55%. There is mild LVH present. The mitral valve is well visualized. No mass or vegetation present. There is mild MR present. Left atrial appendage also well visualiz ed with normal velocities present. The left atrium well visualized with no mass or vegetations. The tricuspid valve and pulmonic valve also free of vegetations or masses. The aortic valve has 3 cusps . Minimal calcification present. Bubble study performed with no PFO present. There is moderate ath erosclerosis present within the aorta. IMPRESSION: No cardiac source for TIA.
[2018-01-19] MEDS: Atorvastatin Calcium 40 MG TAB PO SCH (21:02)
[2018-01-19] MEDS: Tamsulosin HCl 0.4 MG CAP PO SCH (21:02)
[2018-01-20] MEDS: Enoxaparin Sodium 40 MG/0.4 ML SYRINGE SC SCH (09:43)
[2018-01-20] MEDS: Lisinopril 20 MG TAB PO SCH (09:45)
[2018-01-20] MEDS: Carvedilol 25 MG TAB PO SCH (09:46)
[2018-01-20] MEDS: Clopidogrel Bisulfate 75 MG TAB PO SCH (09:46)
[2018-01-20] MEDS: Aspirin 325 MG TAB PO SCH (09:46)
[2018-01-20] MEDS: hydrALAZINE 25 MG TAB PO SCH (09:46)
[2018-01-20] MEDS: HumaLOG 300 UNITS/3 ML VIAL SC PRN (11:18)
--- NOTE | 2018-01-20 11:54 | PDOC.PN ---
- Subjective Encounter Start Date: 01/20/18 Encounter Start Time: 07:15 Patient seen and examined. No new complaints. No overnight events - Objective MAR Reviewed: Yes Vital Signs & Weight: Vital Signs (12 hours) Temp Pulse Pulse Resp BP BP BP 01/20/18 09:46 80 01/20/18 09:45 128/78 01/20/18 08:48 98.2 F 80 17 01/20/18 08:47 98.2 F 80 17 128/78 01/20/18 08:38 82 128/78 01/20/18 05:10 98.3 F 75 18 141/75 H Pulse Ox 01/20/18 09:46 01/20/18 09:45 01/20/18 08:48 94 L 01/20/18 08:47 94 L 01/20/18 08:38 01/20/18 05:10 95 Weight Admit Weight 184 lb 6 oz Weight 184 lb 6 oz I&O: 01/19/18 01/20/18 01/21/18 06:59 06:59 06:59 Intake Total 550 240 Balance 550 240 Result Diagrams: 01/14/18 08:53 01/15/18 06:54 Additional Labs: Accuchecks 01/20/18 01/19/18 01/19/18 05:16 21:08 16:44 POC Glucose 130 H 160 H 108 Radiology Reviewed by me: Yes (DARI normal) EKG Reviewed by me: Yes Phys Exam - Physical Examination Constitutional: NAD HEENT: PERRLA, moist MMs, sclera anicteric Neck: no JVD, supple Respiratory: no wheezing, no rales, no rhonchi Cardiovascular: RRR, no significant murmur, no rub Gastrointestinal: soft, non-tender, no distention, positive bowel sounds Musculoskeletal: no edema, pulses present Neurological: non-focal, normal sensation, moves all 4 limbs Psychiatric: normal affect Skin: no rash, normal turgor Dx/Plan (1) Stroke Code(s): I63.9 - CEREBRAL INFARCTION, UNSPECIFIED Status: Acute Comment: recurrent lacunar CVA (2) Hypokalemia Code(s): E87.6 - HYPOKALEMIA Status: Resolved (3) Hypomagnesemia Code(s): E83.42 - HYPOMAGNESEMIA Status: Resolved (4) Pneumothorax Code(s): J93.9 - PNEUMOTHORAX, UNSPECIFIED Status: Resolved (5) Pulmonary nodule Code(s): R91.1 - SOLITARY PULMONARY NODULE Status: Acute (6) BPH (benign prostatic hyperplasia) Code(s): N40.0 - BENIGN PROSTATIC HYPERPLASIA WITHOUT LOWER URINRY TRACT SYMP Status: Chronic (7) Diabetes type 2, controlled Code(s): E11.9 - TYPE 2 DIABETES MELLITUS WITHOUT COMPLICATIONS Status: Chronic (8) Dyslipidemia Code(s): E78.5 - HYPERLIPIDEMIA, UNSPECIFIED Status: Chronic (9) Hypertension Code(s): I10 - ESSENTIAL (PRIMARY) HYPERTENSION Status: Chronic (10) Physical deconditioning Code(s): R53.81 - OTHER MALAISE Status: Acute - Plan cont current plan of care, PT/OT, director social welfare * medication reviewed as below * symptomatic treatment * suture will be removed from previous chest tube site * await placement * stable medically Review of Systems - Review of Systems Eyes: negative: Pain, Vision Change, Conjunctivae Inflammation, Eyelid Inflammation, Redness, Other ENT: negative: Ear Pain, Ear Discharge, Nose Pain, Nose Discharge, Nose Congestion, Mouth Pain, Mouth Swelling, Throat Pain, Throat Swelling, Other Respiratory: negative: Cough, Dry, Shortness of Breath, Hemoptysis, SOB with Excertion, Pleuritic Pain, Sputum, Wheezing Cardiovascular: negative: chest pain, palpitations, orthopnea, paroxysmal nocturnal dyspnea, edema, light headedness, other Gastrointestinal: negative: Nausea, Vomiting, Abdominal Pain, Diarrhea, Constipation, Melena, Hematochezia, Other Genitourinary: negative: Dysuria, Frequency, Incontinence, Hematuria, Retention , Other Musculoskeletal: negative: Neck Pain, Shoulder Pain, Arm Pain, Back Pain, Hand Pain, Leg Pain, Foot Pain, Other Skin: negative: Rash, Lesions, Kvng, Bruising, Other - Medications/Allergies Allergies/Adverse Reactions: Allergies Allergy/AdvReac Type Severity Reaction Status Date / Time Penicillins Allergy Verified 12/22/16 00:11 Medications: Current Medications Acetaminophen (Tylenol) 650 mg PO Q4H PRN PRN Reason: Headache/Fever or Pain Last Admin: 01/06/18 22:34 Dose: 650 mg Al Hydroxide/Mg Hydroxide (Maalox) 30 ml PO Q6H PRN PRN Reason: Heartburn or Indigestion Albuterol/Ipratropium (Duoneb) 3 ml NEB Q4H PRN PRN Reason: SOB Aspirin (Aspirin) 325 mg PO DAILY [facility] Last Admin: 01/20/18 09:46 Dose: 325 mg Atorvastatin Calcium (Lipitor) 40 mg PO HS [facility] Last Admin: 01/19/18 21:02 Dose: 40 mg Benzonatate (Tessalon) 100 mg PO Q4H PRN PRN Reason: Cough Last Admin: 01/14/18 10:41 Dose: 100 mg Bisacodyl (Dulcolax) 10 mg PO DAILYPRN PRN PRN Reason: Constipation Calcium Carbonate (Tums) 1,000 mg PO Q4H PRN PRN Reason: Heartburn or Indigestion Carvedilol (Coreg) 12.5 mg PO BID [facility] Last Admin: 01/20/18 09:46 Dose: 12.5 mg Clopidogrel Bisulfate (Plavix) 75 mg PO DAILY [facility] Last Admin: 01/20/18 09:46 Dose: 75 mg Dextrose/Water (Dextrose 50%) 25 gm SLOW IVP PRN PRN PRN Reason: Hypoglycemia Enoxaparin Sodium (Lovenox) 40 mg SC 0900 [facility] Last Admin: 01/20/18 09:43 Dose: 40 mg Glucagon (Glucagon) 1 mg IM PRN PRN PRN Reason: Hypoglycemia Guaifenesin (Robitussin Sf) 200 mg PO Q4H PRN PRN Reason: Cough Last Admin: 01/14/18 10:42 Dose: 200 mg Hydralazine HCl (Apresoline) 10 mg SLOW IVP Q4H PRN PRN Reason: Systolic BP > 180 Last Admin: 01/09/18 08:13 Dose: 10 mg Hydralazine HCl (Apresoline) 25 mg PO BID [facility] Last Admin: 01/20/18 09:46 Dose: 25 mg Dextrose/Water (D5w) 1,000 mls @ 0 mls/hr IV .Q0M PRN PRN Reason: Hypoglycemia Insulin Human Lispro (Humalog) 0 units SC .MODERATE SLIDING SC PRN PRN Reason: Moderate Correctional Scale Last Admin: 01/20/18 11:18 Dose: 2 unit Insulin Human Lispro (Humalog) 0 units SC .BEDTIME SLIDING SC PRN PRN Reason: Bedtime Correctional Scale Labetalol HCl (Normodyne) 5 mg SLOW IVP Q4H PRN PRN Reason: sbp >190 Last Admin: 01/07/18 23:35 Dose: 5 mg Lisinopril (Zestril) 20 mg PO BID [facility] Last Admin: 01/20/18 09:45 Dose: 20 mg Loratadine (Claritin) 10 mg PO DAILYPRN PRN PRN Reason: Sinus Symptoms Nitroglycerin (Nitrostat) 0.4 mg SL Q5MIN PRN PRN Reason: Chest Pain Last Admin: 01/07/18 14:16 Dose: 0.4 mg Ondansetron HCl (Zofran) 4 mg IVP Q6H PRN PRN Reason: Nausea/Vomiting Senna (Senokot) 2 tab PO HSPRN PRN PRN Reason: Constipation Sodium Chloride (Flush - Normal Saline) 10 ml IVF Q12HR [facility] Last Admin: 01/20/18 09:47 Dose: 10 ml Sodium Chloride (Flush - Normal Saline) 10 ml IVF PRN PRN PRN Reason: Saline Flush Tamsulosin HCl (Flomax) 0.4 mg PO QPM [facility] Last Admin: 01/19/18 21:02 Dose: 0.4 mg
--- NOTE | 2018-01-20 12:23 | DIS ---
DATE OF ADMISSION: 01/07/2018 DATE OF DISCHARGE: Pending. PRIMARY CARE PHYSICIAN: Dr. Brock Centeno. DISCHARGE DISPOSITION: [facility] home. PRIMARY DISCHARGE DIAGNOSES: 1. Pneumothorax resolved status post chest tube placement. 2. Recurrent cerebrovascular accident. 3. Hypomagnesemia, hypokalemia, corrected. 4. Pulmonary nodule will need outpatient workup. 5. Physical deconditioning. SECONDARY DISCHARGE DIAGNOSES: Benign enlargement of prostate, diabetes type 2 , hypertension, dyslipidemia. PRIMARY PROCEDURE/OPERATION: The patient required chest tube placement and subsequent removal for pneumothorax. RADIOLOGICAL INVESTIGATION: MRI brain x2. CT angiography neck as well as several chest x-rays, repeat CT brain, echocardiography and transesophageal echocardiography. SIGNIFICANT LABORATORY DATA: WBC 7.6, hemoglobin 14.6, platelets 321. Sodium 136, potassium 4.0, BUN 6, creatinine 0.68, calcium 8.3, magnesium 2.2. Urinalysis normal. C. diff negative. DISCHARGE MEDICATIONS: Aspirin 81 mg p.o. daily, Plavix 75 mg p.o. daily, Pepcid 20 mg p.o. b.i.d., hydralazine 25 mg p.o. b.i.d., lisinopril 20 mg p.o. b.i.d., Lipitor 40 mg p.o. daily, Coreg 12.5 mg p.o. b.i.d., Amaryl 2 mg p.o. daily, metformin 1000 mg p.o. b.i.d., Flomax 0.4 mg p.o. daily. CONTRAINDICATIONS: None. CODE STATUS: FULL CODE. INPATIENT CONSULTANTS: Neurology was following while in hospital. Dr. Johnson was consulted for pneumothorax. Cardiology was consulted for DARI. TEST RESULTS PENDING ON DISCHARGE: None. ALLERGIES: PENICILLIN. DISCHARGE PLAN: Post hospital, the patient will follow up with primary care physician and primary care physician will make sure to repeat a CT chest for further evaluation and pulmonary nodule. The patient will follow up with the Neurology and Cardiology. HOSPITAL COURSE: A 72-year-old male who was admitted by Dr. Keating on 2017. Please see her H&P for further detail. The patient presented to the hospital with aphasia and left-sided weakness. Patient was having stroke-like symptoms. Patient's initially CT brain was negative and CT head angiography of neck was unremarkable. MRI did show multiple white matter infarct. While in hospital, patient developed a pneumothorax and that is why cardiovascular group was consulted. They treated his pneumothorax with a chest tube and subsequently chest tube was removed. His pneumothoraces completely resolved. The patient has physical deconditioning from stroke. He needs a lot of assistance from nursing and that is why with help of mattress spring encaser, we tried to arrange rehabilitation/long-term home, but we are waiting for approval from his insurance by the time of dictation. While in hospital, patient also had another CVA that was confirmed with MRI to rule out any cardiac problem. We did a transesophageal echocardiography after Cardiology consultation that was also unremarkable. By the date of today, the patient is now waiting for insurance approval for long-term home. Otherwise, the patient is medically stable. He is doing relatively well. Vitals stallworth, he will continue above-mentioned medication upon discharge. Paperwork for discharge done. Discharge medication reconciliation done. Total time spent on discharge 31 minutes. MATHIEU
[2018-01-20 15:38] VITALS: BP 146/84; TEMP 98.8
--- NOTE | 2018-01-21 16:59 | ECHO ---
PREPROCEDURE DIAGNOSIS: Recent TIA. POSTPROCEDURE DIAGNOSIS: No cardiac etiology for recent TIA. PROCEDURE: DARI. The patient was consented for the procedure. I discussed the procedure in full detail with the patie nt. The risks include but are not limited to , stroke, NC, damaged teeth, mild back of throat da mage, damage to esophagus requiring emergency surgery as well as reaction to medication. All questio ns were answered. Given the above, patient agreed to proceed with procedure. Conscious sedation performed with propofol. The probe passed easy into esophagus. FINDINGS: Overall LVEF estimated at 50-55%. There is mild LVH present. The mitral valve is well visualized. No mass or vegetation present. There is mild MR present. Left atrial appendage also well visualize d with normal velocities present. The left atrium well visualized with no mass or vegetations. The tricuspid valve and pulmonic valve also free of vegetations and masses. The aortic valve has three c usps. Minimal calcification present. Bubble study performed with no PFO present. There is some mod erate atherosclerosis present within the aorta. IMPRESSION No cardiac source for TIA.
== END 2018-01-20 16:25 | DRG 65 ==
LOC: ERS 15:11 → 2SE 17:55 → OBSVTOIN 01-07 13:01
PROVIDERS: ADMIT Internal Medicine; ATTEND Internal Medicine
PROC: 0W9B30Z Drainage of Left Pleural Cavity with Drainage Device, Percutaneous Approach (ICD-10-PCS; 2018-01-08)
PROC: B24BZZ4 Ultrasonography of Heart with Aorta, Transesophageal (ICD-10-PCS; principal; 2018-01-19)
DX: I63.9 Cerebral infarction, unspecified (principal); I69.354 Hemiplegia and hemiparesis following cerebral infarction affecting left non-dominant side; J94.8 Other specified pleural conditions; R47.01 Aphasia; E11.9 Type 2 diabetes mellitus without complications; I10 Essential (primary) hypertension; E78.5 Hyperlipidemia, unspecified; N40.0 Benign prostatic hyperplasia without lower urinary tract symptoms; R29.810 Facial weakness; R91.1 Solitary pulmonary nodule; E87.6 Hypokalemia; E83.42 Hypomagnesemia; R53.81 Other malaise; R47.1 Dysarthria and anarthria; Z88.0 Allergy status to penicillin; Z89.422 Acquired absence of other left toe(s)
CPT/HCPCS: 36415; 36416; 70450; 70498; 70551; 71045; 80048; 80061; 81001; 82553; 83735; 84484; 85025; 87324; 87449; 93005; 93010; 93312; 94640; G8978-GP-CK; G8978-GP-CL; G8979-GP-CI; G8979-GP-CK; G8987-GO-CL; G8988-GO-CJ; G9165-GN-CM; G9166-GN-CI; G9168-GN-CJ; G9169-GN-CI; J0360; J1650; J1940; J2001; J2704; J3475; J7050; J7620

== ENCOUNTER 2018-03-05 19:42 | Inpatient (IN) | payer MEDICARE ==
--- NOTE | 2018-03-05 22:09 | RAD ---
PORTABLE CHEST: 03/05/18 COMPARISON: 01/10/18 study. HISTORY: Fall. History of right sided weakness. Heart size within normal limits. There is some atherosclerotic changes of the aorta. The lungs are cl ear of infiltrates. No rib fractures are identified. IMPRESSION: No active intrathoracic disease. POS: [facility]
[2018-03-05] MEDS ORDERED: hydrALAZINE 20 MG/ML VIAL SLOW IVP PRN (22:48)
--- NOTE | 2018-03-05 23:07 | RAD ---
Please disregard this report. The exam was performed on the wrong patient. PORTABLE CHEST: 03/05/18 HISTORY: TIA. Heart size is borderline. There are atherosclerotic changes of the aorta. The lungs show some chronic change. No signs of failure. IMPRESSION: Borderline cardiomegaly. Please disregard this report. The exam was performed on the wrong patient. POS: [facility]
[2018-03-06 07:31] VITALS: BMI 27.1
[2018-03-06] MEDS: Clopidogrel Bisulfate 75 MG TAB PO SCH (09:05)
[2018-03-06] MEDS: Aspirin 81 mg Enteric Coated Tablet PO SCH (09:05)
[2018-03-06] MEDS: Enoxaparin Sodium 40 MG/0.4 ML SYRINGE SC SCH (09:05)
[2018-03-06] MEDS: Acetaminophen 325 MG TAB PO PRN (12:10)
--- NOTE | 2018-03-06 12:30 | MRI ---
MRI OF THE BRAIN WITHOUT CONTRAST: COMPARISON: 01/18/18. HISTORY: TIA versus CVA TECHNIQUE: Multiplanar, multisequence MR images were obtained of the brain without contrast. FINDINGS: There are small foci of restricted diffusion and high FLAIR signal along the right periventricular wh ite matter. There are multiple small foci. They are similar in position compared to the prior exami [facility]. The FLAIR sequences show multiple foci of high FLAIR signal secondary to small-vessel ischem ic disease. It is difficult to determine if a new definite lesion is present. There is no evidence of hydrocephalus, intracranial hemorrhage, or extraaxial fluid collection. The expected flow voids are present. The corpus callosum, pituitary, and craniocervical junction are unre markable. The calvarium and overlying soft tissues are unremarkable. IMPRESSION: Multifocal acute lacunar infarctions in the right periventricular white matter. POS: [facility]
[2018-03-06] MEDS ORDERED: hydrALAZINE 25 MG TAB PO SCH (13:00)
[2018-03-06] MEDS ORDERED: Carvedilol 6.25 MG TAB PO SCH (13:00)
[2018-03-06] MEDS ORDERED: Lisinopril 20 MG TAB PO SCH (13:00)
--- NOTE | 2018-03-06 16:10 | PDOC.PN ---
- Subjective Encounter Start Date: 03/06/18 Encounter Start Time: 12:00 -: old records requested/rev Pt seen and examined, chart reviewed in its entirety, this is my first visit with this patient. Seen by Dr graham, MRI positive for new acute lacunar infarcts in the right periventricular whie matter. old right posterior infarct seen. neuro has recommended continue with ASA 81mg and plavix for now, if recurs, then recommends transitioning to Aggrenox. after my visit, pt seemed to have more slurred speech, Stat CT ordered, nothing readily apparent any differently, slurring improved No F/C, no N/V/d/c, no CP or sOb, awaiting Pt/ot/ST evals All systems reviewed and neg x as above - Objective Resuscitation Status: Resuscitation Status DNR:Do Not Resuscitate MAR Reviewed: Yes Vital Signs & Weight: Vital Signs (12 hours) Temp Pulse Resp BP BP Pulse Ox 03/06/18 16:00 99.0 F 79 18 117/62 96 03/06/18 13:12 89 177/90 H 03/06/18 11:37 99.6 F 89 18 177/90 H 95 03/06/18 07:52 99.6 F 87 16 184/92 H 97 03/06/18 04:22 100.1 F H 89 15 157/84 H 94 L Weight Weight 178 lb 12.8 oz I&O: 03/05/18 03/06/18 03/07/18 06:59 06:59 06:59 Intake Total 600 Balance 600 Additional Labs: Accuchecks 03/06/18 11:03 POC Glucose 147 H Radiology Reviewed by me: Yes EKG Reviewed by me: Yes Phys Exam - Physical Examination Constitutional: NAD HEENT: PERRLA, moist MMs, sclera anicteric, oral pharynx no lesions Neck: no nodes, no JVD, supple, full ROM Respiratory: no wheezing, no rales, no rhonchi, clear to auscultation bilateral Cardiovascular: RRR, no significant murmur, no rub Gastrointestinal: soft, non-tender, no distention, positive bowel sounds Musculoskeletal: edema present Neurological: non-focal, moves all 4 limbs Lymphatic: no nodes Psychiatric: normal affect Skin: no rash, normal turgor, cap refill <2 seconds Dx/Plan (1) Acute thrombotic stroke Code(s): [id number] - Status: Acute Comment: right sided MCA, CTG angio from a year ago demonstrated M1 and P1 severe stensois. pt has been compliant with meds per his son. CCM, appreciate neuro input. PT/OT/ST, maybe SNF placement (2) Physical deconditioning Code(s): R53.81 - OTHER MALAISE Status: Chronic (3) Pulmonary nodule Code(s): R91.1 - SOLITARY PULMONARY NODULE Status: Chronic (4) BPH (benign prostatic hyperplasia) Code(s): N40.0 - BENIGN PROSTATIC HYPERPLASIA WITHOUT LOWER URINRY TRACT SYMP Status: Chronic Qualifiers: Lower urinary tract symptom presence: symptoms absent Qualified Code(s): N40.0 - Benign prostatic hyperplasia without lower urinary tract symptoms (5) Diabetes type 2, controlled Code(s): E11.9 - TYPE 2 DIABETES MELLITUS WITHOUT COMPLICATIONS Status: Chronic Qualifiers: Diabetes mellitus middle or intermediate school principal insulin use: without middle or intermediate school principal use Diabetes mellitus complication status: with circulatory complication Diabetes mellitus complication detail: with other circulatory complications Qualified Code(s): E11.59 - Type 2 diabetes mellitus with other circulatory complications (6) Dyslipidemia Code(s): E78.5 - HYPERLIPIDEMIA, UNSPECIFIED Status: Chronic (7) Hypertension Code(s): I10 - ESSENTIAL (PRIMARY) HYPERTENSION Status: Chronic Qualifiers: Hypertension type: essential hypertension Qualified Code(s): I10 - Essential (primary) hypertension - Plan cont current plan of care, PT/OT, social media content specialist, speech therapy, DVT proph w/ SCDs * .
[2018-03-06] MEDS ORDERED: Insulin Regular 300 UNITS/3 ML VIAL SC PRN ×2 (17:19)
[2018-03-06] MEDS ORDERED: Dextrose 5% in Water 1,000 ML IV PRN (17:19)
[2018-03-06] MEDS ORDERED: Dextrose 50% Abboject 50 ML SYRINGE IVP PRN (17:19)
--- NOTE | 2018-03-06 18:06 | CON ---
DATE OF CONSULTATION: 03/06/2018 REFERRING PHYSICIAN: Dr. Home Parrish. REASON FOR CONSULTATION: Rule out stroke. HISTORY OF PRESENT ILLNESS: Mr. Monte is a pleasant 72-year-old male, who has been consulte d for evaluation of a possible stroke. History is obtained from the patient's medical chart as eduardo kee is very hard of hearing and poor historian. Apparently, he had fell on his face 2 days ago and si nce then he has been feeling sore all over. He has also been having some confusion and weakness in b oth lower extremities, which prompted him to present to the outside emergency room. He currently den ies any headache, chest pain, palpitation. He denies changes in his speech or swallowing. He denies numbness or tingling or weakness in upper or lower extremities at this time. PAST MEDICAL HISTORY: Significant for hypertension, diabetes, history of stroke. PAST SURGICAL HISTORY: Significant for tonsillectomy, left foot surgery, and amputation of toes. SOCIAL HISTORY: He reports of smoking on a daily basis. He reports of alcohol use on social occasio ns. He denies illicit drug use. He lives with his family and is currently retired. FAMILY HISTORY: Noncontributory. CURRENT MEDICATIONS: Please review MAR. ALLERGIES: Include PENICILLIN. REVIEW OF SYSTEMS: As mentioned in the HPI, otherwise negative. PHYSICAL EXAMINATION: VITAL SIGNS: Blood pressure of 177/90, pulse of 89, temperature of 99.6, respirations of 18, O2 sats of 95% on room air. GENERAL: Well-developed, well-nourished male in no apparent distress. RESPIRATORY: Clear to auscultation bilaterally. CARDIOVASCULAR: Regular rate and rhythm. NEUROLOGIC: Mental status: The patient is awake, alert, oriented x3. Speech and language: Fluent speech. Cranial nerves: Pupils are 3 mm and reactive. Visual nam are intact. External muscles are intact. No nystagmus is noted. Face is symmetric. Tongue and uvula midline. He is very hard o f hearing. Motor exam showed normal tone and bulk with a 5/5 strength in the right upper and right l ower extremity. His strength in the left upper extremity is 4+/5, left lower extremity is 5/5. Sens ory: Sensation is intact and symmetric. Coordination intact to [id number] and finger tappin g bilaterally. There is a mild pronator drift noted on the left upper extremity. Gait and Romberg c ould not be tested. LABORATORY DATA: Labs are reviewed, which included lipid profile, which is significant for total cho lesterol of 91, LDL of 47, HDL of 30, triglycerides of 72, otherwise unremarkable. IMAGING STUDIES: MRI brain without contrast was reviewed. Official report is still pending. I did review the MRI, which did show acute right posterior parietal ventricular region ischemic infar ct. IMPRESSION: 1. Acute right posterior parietal ischemic infarct. 2. Malignant hypertension. 3. Diabetes. Mr. Monte is a pleasant 72-year-old male, who presented to me after having fall down. He di d have an MRI brain done earlier today, which did show acute ischemic infarct involving the right pos terior parietal region in periventricularly. Based in the location, it is likely to be thrombotic in nature. I have reviewed his transesophageal echocardiogram as well as a transthoracic echocardiogra m and CT angiogram of the neck that was done on his previous admission in 01/2018, which were unremar kable. He has been taking aspirin and Plavix since his last stroke in January. At this time, I would recommend continuing on aspirin and Plavix for secondary stroke prevention. It has only been less t yao 2 months since he has been on the combination of aspirin and Plavix. Thus, I would give some mor e time to see if it improves this stroke prevention. If he has another episode of stroke or TIA type symptoms, then aspirin and Plavix can be switched over to Aggrenox. Continue current medical manage ment, consult PT/OT, speech therapy for a stroke rehab evaluation. No further neurological workup ne eded from my standpoint. Thank you for consultation.
--- NOTE | 2018-03-06 18:07 | CT ---
NONCONTRAST CT HEAD: 03/06/2018 HISTORY: Increase in slurred speech, as well as weakness. COMPARISON: MRI brain from 03/06/2018. CT head from 03/05/2018. FINDINGS: Again noted is a remote lacunar infarction in the right basal ganglia, with an area of encephalomalac ia and gliosis seen within the right temporal parietal region, related to a remote area of infarction . Recent MRI examination did demonstrate small acute infarctions in the right periventricular white matter, which would be difficult to discern on this examination. There is no evidence of an acute co rtical infarction, hemorrhage, mass effect, or midline shift. CT head is overall stable compared to the study on 03/05/2018. Mild cerebral volume loss is present. The ventricular system is normal in size, shape, and position. No other interval change. IMPRESSION: 1. Overall stable CT scan of the head with remote right basal ganglia lacunar infarction, as well as stable area of encephalomalacia and gliosis in the right parietal lobe. 2. The small acute infarctions in the right periventricular white matter/bauer radiata seen on MRI are not well demonstrated on this examination. No acute cortical infarction is seen. POS: LEIF
--- NOTE | 2018-03-06 19:58 | HP ---
CHIEF COMPLAINT: Fall. HISTORY OF PRESENT ILLNESS: This is a 72-year-old male with past medical history of recurrent TIA; d iabetes mellitus, type 2; hypertension; presenting with weakness and status post fall per EMR and the patient states that he was feeling very weak, a little confused, and because of that, he went to [facility], because he fell due to the weakness. So, the patient has been transferred from [place] to be evaluated for possible stroke. At this point, the patient reports having some cough, which has been nonproductive and has been ongoing for some time now, and he is also complaining of some pain on his left aspect since he fell on his left side. Otherwise, denies any headaches, fever, nausea, vomitin g. REVIEW OF SYSTEMS: Positive for weakness, pain on the left side, and cough, otherwise as documented in HPI, all other systems were reviewed and are negative. FAMILY HISTORY: Reviewed and noncontributory to this visit. PAST MEDICAL HISTORY: Hypertension; recurrent TIAs; diabetes mellitus, type 2. PAST SURGICAL HISTORY: The patient had tonsillectomy, left foot surgery, amputation of toes. PSYCHIATRIC HISTORY: No psych history noted. SOCIAL HISTORY: Patient denies drug use. Lives at home with family. Patient drinks socially. Natalya ent stated that he lives at home with his son. Social drinker. Patient chews tobacco. ALLERGIES: Patient is allergic to PENICILLINS. CURRENT MEDICATIONS: The patient is not able to recite his medications. We will follow up with eder pantoja and obtain patient's medications. PHYSICAL EXAMINATION: VITAL SIGNS: Patient's blood pressure is 134/72, pulse is 90, respiratory rate of 14, temperature 10 0.2, O2 sat is 95. GENERAL: Patient is able to speak softly, lying in bed comfortably, does not appear to be in any dis tress. HEENT: Normocephalic, atraumatic. Pupils are equally round and reactive to light. Extraocular move ments are intact. No scleral icterus. No nystagmus. No facial droop noted. NECK: Supple. No JVD. Trachea is midline. CARDIAC: Positive S1 and S2. Regular rate and rhythm. No murmurs, no gallops, no rubs appreciated. LUNGS: Clear to auscultation bilaterally. No wheezing, no rhonchi, no rales appreciated. ABDOMEN: Obese. Abdomen is soft, nontender, nondistended, positive bowel sounds in all quadrants. EXTREMITIES: Upper extremities, patient has good upper extremity strength and good machine learning intern. No weaknes s in both extremities. The patient does have good pulses bilaterally in the upper extremities. Lowe r extremities, the patient does have some weakness of the lower extremity about 4/5 muscle strength. The patient also has some of his toes amputated in the lower extremity. NEUROLOGIC: Cranial nerves II through XII intact. Negative for pronator drift. The patient does feliciano ve some weakness of the lower extremities. SKIN: Warm, dry, and intact. PSYCHIATRIC: Alert, oriented, normal affect. Chest x-ray, no acute cardiopulmonary process. ED COURSE: The patient received normal saline. CT of the head was negative. LABORATORY DATA: Triglycerides 147, cholesterol 91, LDL 47, HDL 30. Labs that were done at [place] were all within normal limits as well. ASSESSMENT AND PLAN: 1. This is a 72-year-old male with a recurrent history of transient ischemic attacks has been admitt ed for rule out transient ischemic attack, due to weakness. At this point, we will order MRI of the brain and we will follow up on the MRI of the brain and we will get Neurology to see the patient and we will follow up with the patient closely. 2. History of diabetes mellitus, type 2. We will do insulin sliding scale. 3. Hypertension. We will continue patient's home medication. 4. Deep venous thrombosis and gastrointestinal prophylaxis. We will do sequential compression devic es.
[2018-03-06] MEDS ORDERED: Atorvastatin Calcium 40 MG TAB PO SCH (21:00)
[2018-03-06] MEDS: Lisinopril 20 MG TAB PO SCH (21:47)
[2018-03-06] MEDS: hydrALAZINE 25 MG TAB PO SCH (21:47)
[2018-03-06] MEDS: Tamsulosin HCl 0.4 MG CAP PO SCH (21:49)
[2018-03-06] MEDS: Carvedilol 6.25 MG TAB PO SCH (21:49)
[2018-03-07 05:37] LABS: #Eosinphils 0.1 thou/uL (0.0-0.7); #Lymphocytes 1.4 thou/uL (1.20-3.40); #Monocytes 0.7 thou/uL (0.11-0.59); #Neutrophils 3.8 thou/uL (1.40-6.50); %Basophils 0.4 % (0.0-1.0); %Eosinophils 2.4 % (0.0-10.0); %Lymphocytes 22.7 % (21.0-51.0); %Monocytes 11.8 % (0.0-10.0); %Neutrophils 62.7 % (42.0-75.0); Hemoglobin 12.6 g/dL (14.0-18.0); Mean Corpuscular HGB CONC 33.5 g/dL (32.0-36.0); Mean Corpuscular Hemoglobin 31.6 pg (27.0-31.0); Mean Corpuscular Volume 94.3 fL (78.0-98.0); Mean Platelet Volume 7.4 fL (7.4-10.4); Platelet Count 234 thou/uL (130-400); RBC Distribution Width 14.5 % (11.5-14.5)
[2018-03-07 05:48] LABS: Anion Gap 8 mmol/L (10-20); BUN (Urea Nitrogen) 9 mg/dL (8.4-25.7); Calc. Creatinine Clearance 121 mL/min (70-130); Calcium 8.2 mg/dL (7.8-10.44); Carbon Dioxide 25 mmol/L (23-31); Chloride 105 mmol/L (98-107); Estimated GFR-MDRD Greater than 90; Glucose 130 mg/dL (80-115); Magnesium 1.9 mg/dL (1.6-2.6); Potassium 3.2 mmol/L (3.5-5.1); Sodium 135 mmol/L (136-145)
[2018-03-07] MEDS: Enoxaparin Sodium 40 MG/0.4 ML SYRINGE SC SCH (08:42)
[2018-03-07] MEDS: Atorvastatin Calcium 40 MG TAB PO SCH (08:43)
[2018-03-07] MEDS: Carvedilol 6.25 MG TAB PO SCH ×2 (08:43→21:07)
[2018-03-07] MEDS: Clopidogrel Bisulfate 75 MG TAB PO SCH (08:43)
[2018-03-07] MEDS: hydrALAZINE 25 MG TAB PO SCH ×2 (08:43→21:07)
[2018-03-07] MEDS: Lisinopril 20 MG TAB PO SCH ×2 (08:43→21:07)
[2018-03-07] MEDS: Aspirin 81 mg Enteric Coated Tablet PO SCH (08:43)
--- NOTE | 2018-03-07 10:13 | PDOC.PN ---
- Subjective Encounter Start Date: 03/07/18 Encounter Start Time: 10:12 No complaints. Refused PT this morning. - Objective Resuscitation Status: Resuscitation Status DNR:Do Not Resuscitate Vital Signs & Weight: Vital Signs (12 hours) Temp Pulse Resp BP BP Pulse Ox 03/07/18 08:43 70 137/70 03/07/18 07:37 97.7 F 70 16 130/67 94 L 03/07/18 04:00 97.9 F 78 16 135/62 97 03/07/18 00:00 98.4 F 80 18 93 L Weight Weight 178 lb 12.8 oz I&O: 03/06/18 03/07/18 03/08/18 06:59 06:59 06:59 Intake Total 900 Balance 900 Result Diagrams: 03/07/18 05:24 03/07/18 05:24 Additional Labs: Accuchecks 03/07/18 03/06/18 03/06/18 05:43 20:43 16:57 POC Glucose 140 H 189 H 182 H 03/06/18 11:03 POC Glucose 147 H Phys Exam - Physical Examination Constitutional: NAD [place] Respiratory: no wheezing, no rales, no rhonchi Cardiovascular: RRR, no significant murmur, no rub Gastrointestinal: soft, non-tender, no distention, positive bowel sounds Musculoskeletal: no edema Neurological: non-focal Deviation from normal: Confused. Dx/Plan (1) Acute thrombotic stroke Code(s): [id number] - Status: Acute Comment: right sided MCA, CTG angio from a year ago demonstrated M1 and P1 severe stensois. pt has been compliant with meds per his son. CCM, appreciate neuro input. Refused PT. Ask NEEDLEMAKER to reassess. No evident, significant deficits. Per Neuro recs, continue meds. (2) Diabetes type 2, controlled Code(s): E11.9 - TYPE 2 DIABETES MELLITUS WITHOUT COMPLICATIONS Status: Chronic Qualifiers: Diabetes mellitus computer terminal operator insulin use: without computer terminal operator use Diabetes mellitus complication status: with circulatory complication Diabetes mellitus complication detail: with other circulatory complications Qualified Code(s): E11.59 - Type 2 diabetes mellitus with other circulatory complications Comment: Adequate control. No change. (3) Dyslipidemia Code(s): E78.5 - HYPERLIPIDEMIA, UNSPECIFIED Status: Chronic Comment: Lipitor (4) Hypertension Code(s): I10 - ESSENTIAL (PRIMARY) HYPERTENSION Status: Chronic Qualifiers: Hypertension type: essential hypertension Qualified Code(s): I10 - Essential (primary) hypertension Comment: Lauren Castillo - Plan * Discussed with nurse and CM. Medically stable and no further intervention planned. OK for discharge. Working on placement options.
[2018-03-07] MEDS: Acetaminophen 325 MG TAB PO PRN (12:57)
[2018-03-07] MEDS: Tamsulosin HCl 0.4 MG CAP PO SCH (21:07)
[2018-03-08 07:52] LABS: Anion Gap 11 mmol/L (10-20); BUN (Urea Nitrogen) 9 mg/dL (8.4-25.7); Calc. Creatinine Clearance 123 mL/min (70-130); Calcium 8.6 mg/dL (7.8-10.44); Carbon Dioxide 25 mmol/L (23-31); Chloride 106 mmol/L (98-107); Estimated GFR-MDRD Greater than 90; Glucose 147 mg/dL (80-115); Potassium 3.5 mmol/L (3.5-5.1); Sodium 138 mmol/L (136-145)
[2018-03-08] MEDS: Lisinopril 20 MG TAB PO SCH (08:48)
[2018-03-08] MEDS: Clopidogrel Bisulfate 75 MG TAB PO SCH (08:48)
[2018-03-08] MEDS: Enoxaparin Sodium 40 MG/0.4 ML SYRINGE SC SCH (08:48)
[2018-03-08] MEDS: hydrALAZINE 25 MG TAB PO SCH (08:48)
[2018-03-08] MEDS: Aspirin 81 mg Enteric Coated Tablet PO SCH (08:48)
[2018-03-08] MEDS: Carvedilol 6.25 MG TAB PO SCH (08:49)
[2018-03-08] MEDS: Atorvastatin Calcium 40 MG TAB PO SCH (08:49)
[2018-03-08] MEDS: Acetaminophen 325 MG TAB PO PRN ×2 (08:50→16:04)
[2018-03-08 15:38] VITALS: BP 143/101; TEMP 98.1
--- NOTE | 2018-03-08 15:59 | PDOC.PN ---
- Subjective Encounter Start Date: 03/08/18 Encounter Start Time: 10:40 Has no complaints except some chronic pain in his left foot. - Objective Resuscitation Status: Resuscitation Status DNR:Do Not Resuscitate Vital Signs & Weight: Vital Signs (12 hours) Temp Pulse Pulse Pulse Resp BP BP 03/08/18 15:37 98.1 F 65 20 03/08/18 11:33 97.9 F 67 18 03/08/18 09:50 68 75 116/69 03/08/18 08:49 137/70 03/08/18 08:48 71 137/70 03/08/18 07:39 98.1 F 71 18 03/08/18 04:00 98.0 F 76 20 BP BP Pulse Ox 03/08/18 15:37 143/101 H 99 03/08/18 11:33 148/63 H 93 L 03/08/18 09:50 143/70 H 03/08/18 08:49 03/08/18 08:48 03/08/18 07:39 151/91 H 97 03/08/18 04:00 123/67 95 Weight Weight 178 lb 12.8 oz I&O: 03/07/18 03/08/18 03/09/18 06:59 06:59 06:59 Intake Total 900 800 Balance 900 800 Result Diagrams: 03/07/18 05:24 03/08/18 07:14 Additional Labs: Accuchecks 03/08/18 03/08/18 03/07/18 10:42 06:01 21:05 POC Glucose 165 H 125 H 137 H 03/07/18 16:38 POC Glucose 113 H Phys Exam - Physical Examination Constitutional: NAD Respiratory: no wheezing, no rales, no rhonchi, clear to auscultation bilateral Cardiovascular: RRR, no significant murmur Gastrointestinal: soft, non-tender, no distention, positive bowel sounds Musculoskeletal: no edema Left foot with multiple toes amputated (great toe remains) No evidence of new pathology. Psychiatric: normal affect Dx/Plan (1) Acute thrombotic stroke Code(s): [id number] - Status: Acute Comment: right sided MCA, CTG angio from a year ago demonstrated M1 and P1 severe stensois. pt has been compliant with meds per his son. CCM, appreciate neuro input. Refused PT. Ask ENGINE MANAGER to reassess. No evident, significant deficits. Per Neuro recs, continue meds. (2) Diabetes type 2, controlled Code(s): E11.9 - TYPE 2 DIABETES MELLITUS WITHOUT COMPLICATIONS Status: Chronic Qualifiers: Diabetes mellitus terminal gauger insulin use: without terminal gauger use Diabetes mellitus complication status: with circulatory complication Diabetes mellitus complication detail: with other circulatory complications Qualified Code(s): E11.59 - Type 2 diabetes mellitus with other circulatory complications Comment: Adequate control. No change. (3) Dyslipidemia Code(s): E78.5 - HYPERLIPIDEMIA, UNSPECIFIED Status: Chronic Comment: Lipitor (4) Hypertension Code(s): I10 - ESSENTIAL (PRIMARY) HYPERTENSION Status: Chronic Qualifiers: Hypertension type: essential hypertension Qualified Code(s): I10 - Essential (primary) hypertension Comment: Lauren Castillo - Plan * Stable for discharge to SNF/Rehab. CM working with insurance for approval.
--- NOTE | 2018-03-09 14:07 | DIS ---
DATE OF ADMISSION: 03/05/2018 DATE OF DISCHARGE: 03/08/2018 DISCHARGE DIAGNOSES: 1. Multifocal lacunar infarction in the right periventricular white matter. 2. Diabetes mellitus, type 2. 3. Hypertension. 4. Dyslipidemia. 5. Mild chronic cognitive impairment. HISTORY: This patient is a 72-year-old male, who had recently had TIA symptoms and presented to the hospital with some generalized weakness and feeling of some confusion. He was initially seen in an [facility] facility, and subsequently transferred here for further evaluation of possible stroke. The pa tient initially did not appear to be in any significant distress, but was noted to have some weakness of the lower extremities. HOSPITAL COURSE: The patient was admitted to the hospital. He was seen in consultation by Neurology and had an MRI of the brain. The MRI of the brain did reveal multifocal acute lacunar infarctions i n the right periventricular white matter. Neurology felt like these were likely thrombotic in nature . The patient had been previously on Plavix and aspirin at the time of this event. Neurology felt t hat it was appropriate to continue the patient with these medications for the time being, but should he have any further stroke-like symptoms, we would recommend changing to Aggrenox. Over the followin g couple of days, the patient was seen in evaluation by the various therapies. He refused physical t herapy at times, but ultimately was felt to be appropriate for transfer to rehab. PHYSICAL EXAMINATION: VITAL SIGNS: On the day of discharge, temperature was 98.1, pulse 65, respirations 20, O2 sat 99% on room air, BP ranged from 148/63-143/101. GENERAL: The patient was awake, alert, pleasant, cooperative. HEART: Regular rate and rhythm. LUNGS: Clear bilaterally. ABDOMEN: Soft, nontender, nondistended, positive bowel sounds, no masses, no organomegaly. NEUROLOGIC: The patient is a bit hard of hearing, generally cooperative. He does have some weakness in the left lower extremity. Of note, the patient also has multiple toes amputated from the left fo ot as well, challenging his ability to ambulate well on that leg. DISPOSITION: The patient is discharged to inpatient rehabilitation. His activity is as tolerated. He has an occupation, physical, and speech therapy ordered. He will be on Flomax, atorvastatin, metf ormin, Amaryl, Zestril, carvedilol, Plavix, Pepcid, Apresoline, aspirin at 81 mg. He will follow up with Dr. Crowe per inpatient rehabilitation and further treatment plan will be per his recommendations .
== END 2018-03-08 18:10 | DRG 66 ==
LOC: ERS 19:42 → 2SE 23:55
PROVIDERS: ADMIT Internal Medicine; ATTEND Internal Medicine
DX: I63.531 Cerebral infarction due to unspecified occlusion or stenosis of right posterior cerebral artery (principal); R40.2410 Glasgow coma scale score 13-15, unspecified time; R29.701 NIHSS score 1; E11.9 Type 2 diabetes mellitus without complications; I10 Essential (primary) hypertension; E78.5 Hyperlipidemia, unspecified; N40.0 Benign prostatic hyperplasia without lower urinary tract symptoms
CPT/HCPCS: 36415; 36416; 70450; 70551; 71045; 80048; 80061; 83735; 85025; 96360; G8978-GP-CL; G8979-GP-CJ; G8987-GO-CJ; G8988-GO-CI; G8999-GN-CL; G9186-GN-CI; J0360; J1650; J1815